=== PATIENT | female | born 1955 | race Caucasian/White ===

== ENCOUNTER 2018-11-04 04:28 | Emergency (ER) | payer BC ==
[~2018-11-04] VITALS: Ht 157.5 cm; Wt 58.2 kg
[2018-11-04 04:30] VITALS: Ht 157.5 cm; Wt 58.2 kg
[2018-11-04] MEDS ORDERED: METHYLPREDNISOLONE 125 MG INJ IV STA (06:31)
[2018-11-04] MEDS ORDERED: ALBUTEROL 0.5% (NEB) 2.5 MG/0.5 ML AMP INH STA (06:31)
[2018-11-04] MEDS ORDERED: morphine 4 MG/ML VIAL IV STA (06:31)
[2018-11-04] MEDS ORDERED: ONDANSETRON 4 MG INJ IV STA (06:31)
[2018-11-04] MEDS ORDERED: IPRATROPIUM (NEB) 0.5 MG/2.5 ML AMP INH STA (06:31)
[2018-11-04] MEDS ORDERED: CEFTRIAXONE 1 GM/50 ML (PMX) 50 ML IVPB STA (07:50)
[2018-11-04] MEDS ORDERED: AZITHROMYCIN 500MG/NS (PMX) 250 ML IV STA (07:50)
[2018-11-04] MEDS ORDERED: FLOV220 INHALATION (08:34)
[2018-11-04] MEDS ORDERED: LOSA1TAB28 ORAL (08:34)
[2018-11-04] MEDS ORDERED: METF-849 PO (08:34)
[2018-11-04] MEDS ORDERED: CARI350T PO (08:34)
[2018-11-04] MEDS ORDERED: GLYB5TAB3 ORAL (08:34)
[2018-11-04] MEDS ORDERED: ESTR2TAB PO (08:34)
[2018-11-04] MEDS ORDERED: LEVO25TA6 ORAL (08:34)
[2018-11-04] MEDS ORDERED: BECL10.62 IH (08:34)
[2018-11-04] MEDS ORDERED: HYDR-3609 ORAL (08:34)
[2018-11-04] MEDS ORDERED: SERT-165 ORAL (08:34)
[2018-11-04] MEDS ORDERED: DIPH25CA6 PO (08:34)
[2018-11-04] MEDS ORDERED: ATOR10TA65 ORAL (08:34)
[2018-11-04] MEDS ORDERED: ESOM20CA59 PO (08:34)
[2018-11-04] MEDS ORDERED: ACET325T33 PO (08:34)
--- NOTE | 2018-11-04 10:01 | ERD ---
ER Documentation Chief Complaint Chief Complaint CP WITH SOB; NO COUGH X2DAYS; NO CARDIAC HX HPI This is a 63-year-old female with a known history of asthma and lupus that presents to the emergency department complaining of generalized malaise she has, productive cough, chest pain and shortness of breath for the past 48 hours. The patient is utilize her inhaler with no improvement of her symptoms. She had a decrease in appetite. She states that the chest pain is worse with deep inspiration. The pain does not radiate to the back neck or jaw. She had associated symptoms with nausea and one episode of nonbloody nonbilious emesis. She denies any recent travel or prolonged immobilization. She has no swelling of her lower extremities. She is never been intubated in the past and no recent hospitalizations. ROS All systems reviewed and are negative except as per history of present illness. Medications Home Meds Reported Medications Estradiol* (Estradiol*) 2 Mg Tablet, 1 MG PO DAILY, TAB 11/04/18 Glyburide* (Glyburide*) 5 Mg Tablet, 1 TAB ORAL DAILY 11/04/18 Losartan-Hydrochlorothiazide (Losartan-HCTZ) 100-12.5 Mg Tab, 1 TAB ORAL DAILY 11/04/18 Sertraline Hcl* (Sertraline Hcl*) 100 Mg Tablet, 1 TAB ORAL QHS 11/04/18 Atorvastatin (Atorvastatin) 10 Mg Tablet, 1 TAB ORAL QHS 11/04/18 Levothyroxine Sodium* (Levothyroxine Sodium*) 25 Mcg Tablet, 1 TAB ORAL QAM 11/04/18 Metformin* (Glucophage*) 500 Mg Tab, 500 MG PO WITH BREAKFAST DINNE, #30 TAB 11/04/18 Hydrocodone/Acetaminophen (Hydrocodone-Acetamin 10-325 mg) 1 Each Tablet, 1 TAB ORAL Q6 PRN for PAIN LEVEL 1-5 11/04/18 Beclomethasone Dipropionate (Qvar Redihaler (80 MCG)) 10.6 Gm Hfa.aeroba, 1 PUFF IH BID, INH 11/04/18 Acetaminophen* (Tylenol*) 325 Mg Tablet, 325 MG PO Q4H PRN for PAIN AND OR ELEVATED TEMP, TAB 11/04/18 Carisoprodol* (Soma*) 350 Mg Tablet, 350 MG PO Q8H PRN for MUSCLE SPASMS, TAB 11/04/18 Diphenhydramine Hcl* (Diphenhydramine Hcl*) 25 Mg Capsule, 25 MG PO Q6 PRN for ITCHING, CAP 11/04/18 Esomeprazole Magnesium (Nexium 24Hr) 20 Mg Capsule.dr, 20 MG PO DAILY 11/04/18 Fluticasone Propionate* (Flovent* HFA 220) 12 Gm Inha, 1 PUFF INHALATION BID, #1 INHALER 11/04/18 Allergies Allergies: Coded Allergies: No Known Allergy (Unverified , 11/04/18) PMhx/Soc History of Surgery: Yes (CHOLECYSTECTOMY , HYSTERECTOMY, TONSILLECTOMY ,C SECTION ) Anesthesia Reaction: No Hx Neurological Disorder: No Hx Respiratory Disorders: Yes (asthma ) Hx Cardiac Disorders: No Hx Psychiatric Problems: No Hx Miscellaneous Medical Probl: Yes (lupus ) Hx Alcohol Use: No Hx Substance Use: No Hx Tobacco Use: No Smoking Status: Never smoker Physical Exam Vitals Vital Signs Date Temp Pulse Resp B/P (MAP) Pulse Ox O2 O2 Flow FiO2 Time Delivery Rate 11/04/18 104 18 111/54 96 Room Air 09:07 (73) 11/04/18 85 20 95 21 07:17 11/04/18 98.1 93 18 133/62 96 Room Air 06:28 (85) 11/04/18 97.5 105 22 119/61 95 04:30 (80) Physical Exam Constitutional:Well-developed. Well-nourished. Mild respiratory distress HEENT:Normocephalic. Atraumatic.Pupils were equal round reactive to light. Moist mucous membranes.No tonsillar exudates. Neck: No nuchal rigidity. No lymphadenopathy. No posterior cervical spine tenderness or step-offs. Respiratory: Not using accessory muscles of respiration. No rhonchi. No rales. Wheezing on end auscultation bilaterally Cardiovascular: Regular rate regular rhythm.No murmurs. No rubs were appreciated.S1, S2 normal. Distal pulses are palpable 2+ bilaterally. GI: Abdomen was soft. Nontender. Non Distended. No pulsatile abdominal masses or bruits. No rebound. No guarding. Bowel sounds were present and normal. Muscle skeletal: Full range of motion of both the upper and lower extremities bilaterally.Normal muscle tone.No assymetrical calf tenderness or swelling. Skin: No petechia, no purpura. No lesions on the palms or the soles of the feet. No maculopapular rash. NEURO: Patient was alert, awake, orientated x3.No facial droop. Gait observed and normal with no ataxia.Speech had regular rate and rhythm. No focal neurological deficits. Result Diagram: 11/04/18 0651 11/04/18 0651 Results 24 hrs Laboratory Tests Test 11/04/18 06:51 White Blood Count 11.9 10^3/ul Red Blood Count 4.32 10^6/ul Hemoglobin 12.7 g/dl Hematocrit 38.2 % Mean Corpuscular Volume 88.4 fl Mean Corpuscular Hemoglobin 29.4 pg Mean Corpuscular Hemoglobin Concent 33.2 g/dl Red Cell Distribution Width 12.8 % Platelet Count 170 10^3/UL Mean Platelet Volume 10.5 fl Immature Granulocytes % 4.400 % Neutrophils % % Segmented Neutrophils % (Manual) 73 % Band Neutrophils % (Manual) 19 % Lymphocytes % % Lymphocytes % (Manual) 4 % Monocytes % % Monocytes % (Manual) 4 % Eosinophils % % Basophils % % Nucleated Red Blood Cells % 0.0 /100WBC Immature Granulocytes # 0.520 10^3/ul Neutrophils # 10^3/ul Neutrophils # (Manual) 8.9 10^3/ul Band Neutrophils # 2.2 10^3/ul Lymphocytes (Manual) 0.4 10^3/ul Lymphocytes # 10^3/ul Monocytes # 10^3/ul Monocytes # (Manual) 0.4 10^3/ul Eosinophils # 10^3/ul Basophils # 10^3/ul Nucleated Red Blood Cells # 10^3/ul Platelet Estimate NORMAL Prothrombin Time 14.7 Sec Prothrombin Time Ratio 1.1 INR International Normalized Ratio 1.14 Activated Partial Thromboplast Time 36.3 Sec Sodium Level 135 mmol/L Potassium Level 4.6 mmol/L Chloride Level 99 mmol/L Carbon Dioxide Level 25 mmol/L Anion Gap 11 Blood Urea Nitrogen 20 mg/dl Creatinine 0.85 mg/dl Est Glomerular Filtrat Rate mL/min > 60 mL/min Glucose Level 298 mg/dl Calcium Level 9.4 mg/dl Total Bilirubin 1.5 mg/dl Direct Bilirubin 0.00 mg/dl Indirect Bilirubin 1.5 mg/dl Aspartate Amino Transf (AST/SGOT) 20 IU/L Alanine Aminotransferase (ALT/SGPT) 15 IU/L Alkaline Phosphatase 81 IU/L Creatine Kinase 63 IU/L Creatine Kinase Index 0.5 Creatinine Kinase MB (Mass) 0.32 ng/ml Troponin I < 0.012 ng/ml B-Type Natriuretic Peptide 136 PG/ML Total Protein 8.2 g/dl Albumin 4.3 g/dl Globulin 3.90 g/dl Albumin/Globulin Ratio 1.10 Current Medications Medications Dose Sig/Shaneka Start Time Status Last (Trade) Ordered Route PRN Stop Time Admin Dose Reason Admin Morphine 4 mg ONCE STAT 11/04/18 DC 11/04/18 Sulfate IV 06:31 06:58 (morphine) 11/04/18 06:34 Ondansetron 4 mg ONCE STAT 11/04/18 DC 11/04/18 HCl (Zofran IV 06:31 06:57 Inj) 11/04/18 06:34 Albuterol 10 mg ONCE STAT 11/04/18 DC 11/04/18 (Proventil INH 06:31 07:16 0.5% (Neb)) 11/04/18 06:34 Ipratropium 1 mg ONCE STAT 11/04/18 DC 11/04/18 [place] INH 06:31 07:16 (Atrovent 11/04/18 06:34 0.02% (Neb)) 125 mg ONCE STAT 11/04/18 DC 11/04/18 Methylprednis IV 06:31 06:58 olone Sodium 11/04/18 06:34 Succinate (Solu-Medrol) Azithromycin 250 ml @ ONCE STAT 11/04/18 DC 11/04/18 250 mls/hr IV 07:50 09:36 11/04/18 08:49 Ceftriaxone 50 ml @ ONCE STAT 11/04/18 DC 11/04/18 Sodium 100 mls/hr IVPB 07:50 09:03 11/04/18 08:49 Procedures/MDM The patient presented to the emergency department with shortness of breath. My differential diagnosis included but was not limited to upper airway obstruction, CHF, pulmonary embolism, cardiac ischemia, pneumonia, pneumothorax, anemia, drug overdose, pulmonary edema, COPD or asthma. The patient has a history of asthma and did have wheezing on end auscultation. There is diminished breath sounds in the left lower lung base. Therefore do feel is necessary to obtain a chest radiograph which was reviewed by the radiologist myself and indicate the following: There is a small left pleural effusion with patchy left basilar atelectasis or infiltrate. Given her symptoms I did feel it was necessary to obtain a d-dimer to rule out for pulmonary embolism given that the patient was a low pretest probability according to the Wells criteria. Departure Condition: CHRIS Craig MD Nov 04, 2018 10:01
[2018-11-04] MEDS ORDERED: SOD CHLORIDE 0.9% 100 ML ONE (10:55)
[2018-11-04] MEDS ORDERED: IOHEXOL 100 ML ONE (10:55)
[2018-11-04] MEDS ORDERED: ALBU8.5H8 INH (12:48)
[2018-11-04] MEDS ORDERED: AZIT250T PO (12:48)
[2018-11-04] MEDS ORDERED: PRED20TA PO (12:48)
[2018-11-04 12:55] VITALS: BP 118/59; PULSE 88; RESP 18
== END 2018-11-04 13:34 | disposition home or self-care (01) ==
LOC: E/R 04:28
DX: J45.901 Unspecified asthma with (acute) exacerbation (principal); Z79.84 Long term (current) use of oral hypoglycemic drugs
CPT/HCPCS: 36415; 71045; 71275; 80053; 82550; 82553; 83880; 84484; 85025; 85378; 85610; 85730; 87040; 93005; 94644; 96365; 96367; 96375; 99285; J0456; J0696; J2270; J2405; J2930; Q9967

== ENCOUNTER 2018-11-11 16:26 | Inpatient (IN) | payer BC ==
[~2018-11-11] VITALS: Ht 157.5 cm; Wt 55.3 kg
--- NOTE | 2018-11-11 15:39 | HP ---
DATE OF ADMISSION: 11/04/2018 IDENTIFYING DATA: The patient is a 63-year-old female being admitted to the hospital with a persiste nt left lower lobe infiltrate and accompanying pleural effusion. HISTORICAL EVENTS: The patient was evaluated at [facility] on 11/04/2018 when she presented with a 2-day history of cough and chest congestion. At that time, a chest x-ray revealed a left low er lobe infiltrate and a CT pulmonary angiogram revealed no evidence of a PE but confirmed the left l ower lobe consolidation with concern that there may be an endobronchial lesion and cavity. She was g iven IV Rocephin along with a Medrol Dosepak and Zithromax (5-day course) that was completed yesterda y. While in the ER, her white count was 11,900. Liver tests were normal. She was evaluated yesterd ay and still had a low grade temperature of 99.4, had mild shortness of breath, intermittent wheezing , albeit she felt somewhat better. Cough had lessened. She did note some mild discomfort involving the left posterior chest that was not particularly pleuritic, but seemed to worsen a bit when she wal ked. She denied any night sweats. There was no recent travel outside the [place]. She denied nausea, vo miting, abdominal pain or diarrhea. Denied pathologic symptoms and did note for the last 2 days a rash involving the maxillary area and the bridge of her nose. PAST MEDICAL HISTORY: Includes: 1. Asthma. 2. Diabetes. 3. History of fibromyalgia. 4. History of Irma's thyroiditis. 5. Partial hysterectomy and cholecystectomy. 6. Hypertension. 7. Hyperlipidemia. 8. History of lupus, having been followed at [facility] by Dr. Spangler without any recent followup at least since 2016. SOCIAL HISTORY: , does not smoke. She works in a warehouse. Does not drink alcohol. MEDICATIONS: 1. Xanax 0.5 b.i.d. p.r.n. 2. Flovent 2 puffs twice a day. 3. DiaBeta, 1 tablet before meals. 4. [place] 10/325 q.6h. p.r.n. 5. Estrace 1 mg per day. 6. Atorvastatin 10 mg per day. 7. Hyzaar 100/12.5 per day. 8. Nexium 40 mg per day. 9. Gabapentin 300 mg t.i.d. 10. Metformin 500 mg b.i.d. 11. Zoloft 100 mg per day. 12. Aspirin 81 daily. PHYSICAL EXAMINATION: GENERAL: A thin female in no acute distress. VITAL SIGNS: BP 122/76, pulse 90, respirations were 18, temperature 99.1. EYES: Extraocular muscles were full. NOSE, MOUTH, AND THROAT: Normal. NECK: Supple without jugular venous distention, thyroid enlargement or adenopathy. LUNGS: Marked reduced breath sounds left base without rales or wheezes; right base revealed a few rh onchi. HEART: Rhythm regular, no murmur. No third or fourth sound. ABDOMEN: Nontender. Liver and spleen were not palpable. No mass or tenderness was noted. EXTREMITIES: No edema, no calf tenderness. Skin revealed an erythematous eruption circular involvin g the bridge of the nose and maxillary area. IMPRESSION: 1. Persistent infiltrate and now effusion concerned about an opportunistic infection. ID and pulmon tamara to see. Will need thoracentesis. 2. Rash, possibly related to Zithromax. May have derm evaluation, doubt lupus related. PLAN: Admit. Thoracentesis. Pulmonary and ID to see. Titration of blood sugars with short-acting insulin. Dictated By: YADI RUTLEDGE/WARD Conf#: [id number] DID#: [id number]
[~2018-11-11 16:26] MED LIST: ACET325T33 PO; ALBU8.5H8 INH; ATOR10TA65 ORAL; AZIT250T PO; BECL10.62 IH; CARI350T PO; DIPH25CA6 PO; ESOM20CA59 PO; ESTR2TAB PO; FLOV220 INHALATION; GLYB5TAB3 ORAL; HYDR-3609 ORAL; LEVO25TA6 ORAL; LOSA1TAB28 ORAL; METF-849 PO; PRED20TA PO; SERT-165 ORAL
[2018-11-11 17:30] VITALS: Ht 157.5 cm; Wt 55.3 kg
[2018-11-11] MEDS ORDERED: ACETAMINOPHEN 325 MG TAB PO PRN (17:30)
[2018-11-11] MEDS: LOSARTAN 50 MG TAB PO SCH ×2 (17:30→18:51)
[2018-11-11] MEDS ORDERED: ZOLPIDEM 5 MG TAB PO PRN (17:30)
[2018-11-11] MEDS ORDERED: NACL 0.9% 3 ML SYG IV SCH (17:30)
[2018-11-11] MEDS ORDERED: INSULIN ASPART [NOVOLOG] 3 ML PEN SC SCH (17:35)
[2018-11-11] MEDS ORDERED: DEXTROSE 50% 50 ML SYRINGE IV PRN ×2 (18:30)
[2018-11-11] MEDS ORDERED: GLUCAGON 1 MG INJ IM PRN (18:30)
[2018-11-11] MEDS ORDERED: GLUCOSE GEL 15 GRAM TUBE BUCCAL PRN (18:30)
[2018-11-11] MEDS ORDERED: GLUCOSE GEL 15 GRAM TUBE PO PRN ×2 (18:30)
[2018-11-11] MEDS: SOD CHLORIDE 0.9% 1,000 ML IV SCH (18:48)
[2018-11-11] MEDS: metFORMIN 500 MG TAB PO SCH (19:16)
[2018-11-11] MEDS: ALBUTEROL/IPRATROPIUM (NEB) 3 ML AMP HHN SCH (19:49)
[2018-11-11 20:00] VITALS: BP 130/60; PULSE 82; RESP 18
[2018-11-11] MEDS ORDERED: INSULIN GLARGINE [LANTus] (100 UNITS/ML) SYG SC SCH (20:00)
[2018-11-11] MEDS: GABAPENTIN 300 MG CAP PO SCH (20:43)
[2018-11-11] MEDS: ATORVASTATIN 10 MG TAB PO SCH (20:43)
[2018-11-11] MEDS: GUAIFENESIN/DM (SR) TAB PO SCH (20:43)
[2018-11-11] MEDS: DIPHENHYDRAMINE 25 MG CAP PO PRN (20:43)
[2018-11-12 02:00] VITALS: BP 120/58; PULSE 87; RESP 17
[2018-11-12] MEDS: PANTOPRAZOLE (EC) 40 MG TAB PO SCH (05:44)
[2018-11-12] MEDS: ALBUTEROL/IPRATROPIUM (NEB) 3 ML AMP HHN SCH ×3 (07:36→21:42)
--- NOTE | 2018-11-12 08:18 | PN ---
Date/Time of Note Date/Time of Note DATE: 11/12/18 TIME: 08:15 Assessment/Plan VTE Prophylaxis Risk score (from Ns)>0 risk: 5 SCD applied (from Ns): Yes Pharmacological prophylaxis: LMWH Lines/Catheters IV Catheter Type (from Nrsg): Peripheral IV Assessment/Plan Assessment/Plan 1. LLL infiltrate, abx noted per ID, chest us noted, ? thoracentesis needed 2. Sl diff swallowing, ? yeast 3. DM, sugar control not optimal, insulin inc 4. Hx SLE, quiescent,serology is pending 5. Rash has resolved Result Diagram: 11/12/18 0534 11/12/18 0534 Results 24hrs Laboratory Tests Test 11/11/18 17:56 11/11/18 18:59 11/11/18 20:42 11/12/18 04:20 White Blood Count 17.0 #H Red Blood Count 4.32 Hemoglobin 12.4 Hematocrit 37.8 Mean Corpuscular 87.5 Volume Mean Corpuscular 28.7 L Hemoglobin Mean Corpuscular 32.8 Hemoglobin Concen t Red Cell 14.2 Distribution Width Platelet Count 337 # Mean Platelet 9.8 Volume Immature 4.100 H Granulocytes % Neutrophils % 79.7 H Lymphocytes % 12.3 L Monocytes % 2.8 Eosinophils % 0.7 Basophils % 0.4 Nucleated Red 0.0 Blood Cells % Immature 0.690 H Granulocytes # Neutrophils # 13.5 H Lymphocytes # 2.1 Monocytes # 0.5 Eosinophils # 0.1 Basophils # 0.1 Nucleated Red 0.0 Blood Cells # Erythrocyte 80 H Sedimentation Rate Prothrombin Time 15.5 H Prothrombin Time 1.2 Ratio INR International 1.22 Normalized Ratio Activated 29.0 Partial Thrombopl ast Time Sodium Level 135 Potassium Level 4.1 Chloride Level 102 Carbon Dioxide 22 Level Anion Gap 11 Blood Urea 24 H Nitrogen Creatinine 0.56 Est Glomerular > 60 Filtrat Rate mL/min Glucose Level 318 H Calcium Level 8.9 Phosphorus Level 3.8 Magnesium Level 2.0 Total Bilirubin 0.8 Direct Bilirubin 0.00 Indirect 0.8 Bilirubin Aspartate Amino 26 Transf (AST/SGOT) Alanine 47 Aminotransferase (ALT/SGPT) Alkaline 89 Phosphatase C-Reactive 15.9 H Protein Total Protein 7.7 Albumin 3.6 Globulin 4.10 H Albumin/Globulin 0.87 Ratio Bedside Glucose 286 H 285 H Urine Color SERA Urine Clarity SLIGHTLY CLOUDY A Urine pH 5.0 Urine Specific 1.035 H [place] Urine Ketones TRACE A Urine Nitrite NEGATIVE Urine Bilirubin NEGATIVE Urine NEGATIVE Urobilinogen Urine Leukocyte TRACE A Esterase Urine Microscopic 8 H RBC Urine Microscopic 18 H WBC Urine Squamous FEW Epithelial Cells Urine Bacteria FEW A Urine Mucus MODERATE Urine Hemoglobin NEGATIVE Urine Glucose 3+ H Urine Total 1+ H Protein Test 11/12/18 05:34 White Blood Count 15.1 H Red Blood Count 4.16 L Hemoglobin 12.1 Hematocrit 36.4 L Mean Corpuscular 87.5 Volume Mean Corpuscular 29.1 Hemoglobin Mean Corpuscular 33.2 Hemoglobin Concen t Red Cell 14.2 Distribution Width Platelet Count 354 Mean Platelet 10.3 Volume Immature 4.300 H Granulocytes % Neutrophils % 76.6 Lymphocytes % 13.7 L Monocytes % 3.6 Eosinophils % 1.3 Basophils % 0.5 Nucleated Red 0.0 Blood Cells % Immature 0.650 H Granulocytes # Neutrophils # 11.6 H Lymphocytes # 2.1 Monocytes # 0.6 Eosinophils # 0.2 Basophils # 0.1 Nucleated Red 0.0 Blood Cells # Sodium Level 137 Potassium Level 4.2 Chloride Level 105 Carbon Dioxide 21 Level Anion Gap 11 Blood Urea 25 H Nitrogen Creatinine 0.56 Est Glomerular > 60 Filtrat Rate mL/min Glucose Level 230 H Hemoglobin A1c 8.3 H Calcium Level 8.5 Phosphorus Level 3.6 Magnesium Level 2.0 Total Bilirubin 0.9 Direct Bilirubin 0.00 Indirect 0.9 Bilirubin Aspartate Amino 24 Transf (AST/SGOT) Alanine 39 Aminotransferase (ALT/SGPT) Alkaline 78 Phosphatase Total Protein 7.2 Albumin 3.3 Globulin 3.90 H Albumin/Globulin 0.84 Ratio Thyroid 1.400 Stimulating Hormone (TSH) Free Thyroxine Pending Index Thyroxine (T4) Pending Triiodothyronine 46.9 H (T3) Uptake Subjective 24 Hr Interval Summary Respiratory: cough (that is not productive without wheezing) Cardiovascular: No chest pain Gastrointestinal: no complaints Genitourinary: no complaints Musculoskeletal: no complaints Neurologic: No headache Exam/Review of Systems Exam Vitals Vital Signs Date Temp Pulse Resp B/P (MAP) Pulse Ox O2 O2 Flow FiO2 Time Delivery Rate 11/12/18 84 18 94 21 07:37 11/12/18 98.7 120/58 02:00 (78) Intake and Output 11/11/18 11/11/18 11/12/18 1515:00 23:00 07:00 IntakeIntake Total 740 ml BalanceBalance 740 ml Neck: No jvd Respiratory: other (red bs left lung and few rhonchi right base) Cardiovascular: regular rate and rhythm Gastrointestinal: soft Extremities: No edema Results Results 24hrs Laboratory Tests Test 11/11/18 17:56 11/11/18 18:59 11/11/18 20:42 11/12/18 04:20 White Blood Count 17.0 #H Red Blood Count 4.32 Hemoglobin 12.4 Hematocrit 37.8 Mean Corpuscular 87.5 Volume Mean Corpuscular 28.7 L Hemoglobin Mean Corpuscular 32.8 Hemoglobin Concen t Red Cell 14.2 Distribution Width Platelet Count 337 # Mean Platelet 9.8 Volume Immature 4.100 H Granulocytes % Neutrophils % 79.7 H Lymphocytes % 12.3 L Monocytes % 2.8 Eosinophils % 0.7 Basophils % 0.4 Nucleated Red 0.0 Blood Cells % Immature 0.690 H Granulocytes # Neutrophils # 13.5 H Lymphocytes # 2.1 Monocytes # 0.5 Eosinophils # 0.1 Basophils # 0.1 Nucleated Red 0.0 Blood Cells # Erythrocyte 80 H Sedimentation Rate Prothrombin Time 15.5 H Prothrombin Time 1.2 Ratio INR International 1.22 Normalized Ratio Activated 29.0 Partial Thrombopl ast Time Sodium Level 135 Potassium Level 4.1 Chloride Level 102 Carbon Dioxide 22 Level Anion Gap 11 Blood Urea 24 H Nitrogen Creatinine 0.56 Est Glomerular > 60 Filtrat Rate mL/min Glucose Level 318 H Calcium Level 8.9 Phosphorus Level 3.8 Magnesium Level 2.0 Total Bilirubin 0.8 Direct Bilirubin 0.00 Indirect 0.8 Bilirubin Aspartate Amino 26 Transf (AST/SGOT) Alanine 47 Aminotransferase (ALT/SGPT) Alkaline 89 Phosphatase C-Reactive 15.9 H Protein Total Protein 7.7 Albumin 3.6 Globulin 4.10 H Albumin/Globulin 0.87 Ratio Bedside Glucose 286 H 285 H Urine Color SERA Urine Clarity SLIGHTLY CLOUDY A Urine pH 5.0 Urine Specific 1.035 H [place] Urine Ketones TRACE A Urine Nitrite NEGATIVE Urine Bilirubin NEGATIVE Urine NEGATIVE Urobilinogen Urine Leukocyte TRACE A Esterase Urine Microscopic 8 H RBC Urine Microscopic 18 H WBC Urine Squamous FEW Epithelial Cells Urine Bacteria FEW A Urine Mucus MODERATE Urine Hemoglobin NEGATIVE Urine Glucose 3+ H Urine Total 1+ H Protein Test 11/12/18 05:34 White Blood Count 15.1 H Red Blood Count 4.16 L Hemoglobin 12.1 Hematocrit 36.4 L Mean Corpuscular 87.5 Volume Mean Corpuscular 29.1 Hemoglobin Mean Corpuscular 33.2 Hemoglobin Concen t Red Cell 14.2 Distribution Width Platelet Count 354 Mean Platelet 10.3 Volume Immature 4.300 H Granulocytes % Neutrophils % 76.6 Lymphocytes % 13.7 L Monocytes % 3.6 Eosinophils % 1.3 Basophils % 0.5 Nucleated Red 0.0 Blood Cells % Immature 0.650 H Granulocytes # Neutrophils # 11.6 H Lymphocytes # 2.1 Monocytes # 0.6 Eosinophils # 0.2 Basophils # 0.1 Nucleated Red 0.0 Blood Cells # Sodium Level 137 Potassium Level 4.2 Chloride Level 105 Carbon Dioxide 21 Level Anion Gap 11 Blood Urea 25 H Nitrogen Creatinine 0.56 Est Glomerular > 60 Filtrat Rate mL/min Glucose Level 230 H Hemoglobin A1c 8.3 H Calcium Level 8.5 Phosphorus Level 3.6 Magnesium Level 2.0 Total Bilirubin 0.9 Direct Bilirubin 0.00 Indirect 0.9 Bilirubin Aspartate Amino 24 Transf (AST/SGOT) Alanine 39 Aminotransferase (ALT/SGPT) Alkaline 78 Phosphatase Total Protein 7.2 Albumin 3.3 Globulin 3.90 H Albumin/Globulin 0.84 Ratio Thyroid 1.400 Stimulating Hormone (TSH) Free Thyroxine Pending Index Thyroxine (T4) Pending Triiodothyronine 46.9 H (T3) Uptake Medications Medication Current Medications Sodium Chloride 1,000 ml @ 50 mls/hr Q20H IV Last administered on 11/11/18at 18:48; Admin Dose 50 MLS/HR; Start 11/11/18 at 17:05 IV Flush (NS 3 ml) 3 ml PER PROTOCOL IV ; Start 11/11/18 at 17:30 Ondansetron HCl (Zofran Inj) 4 mg Q6H PRN IV NAUSEA/VOMITING; Start 11/11/18 at 17:30 Acetaminophen (Tylenol Tab) 650 mg Q6H PRN PO .PAIN 1-3 OR TEMP; Start 11/11/18 at 17:30 Acetaminophen/ Hydrocodone Bitart ([place] (5/325)) 1 tab Q6H PRN PO .MOD PAIN 4- 6; Start 11/11/18 at 17:30 Zolpidem Tartrate (Ambien) 5 mg QHS PRN PO .INSOMNIA; Start 11/11/18 at 17:30 Pantoprazole (Protonix Tab) 40 mg DAILY@06 PO Last administered on 11/12/18at 05:44; Admin Dose 40 MG; Start 11/12/18 at 06:00 Albuterol/ Ipratropium (Duoneb) 3 ml Q6HWA RESP THERAPY HHN Last administered on 11/12/18at 07:36; Admin Dose 3 ML; Start 11/11/18 at 20:00 Guaifenesin/ Dextromethorphan (Mucinex Dm) 1 tab BID PO Last administered on 11/11/18at 20:43; Admin Dose 1 TAB; Start 11/11/18 at 21:00 Estradiol (Estrace) 1 mg DAILY PO ; Start 11/12/18 at 09:00 Atorvastatin Calcium (Lipitor) 10 mg HS PO Last administered on 11/11/18at 20:43; Admin Dose 10 MG; Start 11/11/18 at 21:00 Gabapentin (Neurontin) 300 mg BID PO Last administered on 11/11/18at 20:43; Admin Dose 300 MG; Start 11/11/18 at 21:00 Metformin HCl (Glucophage) 500 mg BID WITH MEALS PO Last administered on 11/11/18at 19:16; Admin Dose 500 MG; Start 11/11/18 at 18:05 Sertraline HCl (Zoloft) 100 mg DAILY PO ; Start 11/12/18 at 09:00 Losartan Potassium (Cozaar) 100 mg DAILY PO ; Start 11/11/18 at 17:30 Insulin Aspart (Novolog Insulin Pen) NOVOLOG *MILD* ALGORITHM AC MEALS SC Last administered on 11/11/18at 19:17; Admin Dose 4 UNIT; Start 11/11/18 at 17:35 Miscellaneous Information 1 ea NOTE XX ; Start 11/11/18 at 18:30 Glucose (Glutose) 15 gm Q15M PRN PO DECREASED GLUCOSE; Start 11/11/18 at 18:30 Glucose (Glutose) 22.5 gm Q15M PRN PO DECREASED GLUCOSE; Start 11/11/18 at 18:30 Dextrose (D50w Syringe) 25 ml Q15M PRN IV DECREASED GLUCOSE; Start 11/11/18 at 18:30 Dextrose (D50w Syringe) 50 ml Q15M PRN IV DECREASED GLUCOSE; Start 11/11/18 at 18:30 Glucagon (Glucagen) 1 mg Q15M PRN IM DECREASED GLUCOSE; Start 11/11/18 at 18:30 Glucose (Glutose) 15 gm Q15M PRN BUCCAL DECREASED GLUCOSE; Start 11/11/18 at 18:30 Insulin Glargine (Lantus) 10 units DAILY@2000 SC Last administered on 11/11/18at 20:44; Admin Dose 10 UNITS; Start 11/11/18 at 20:00 Diphenhydramine HCl (Benadryl) 25 mg TID PRN PO ITCHING Last administered on 11/11/18at 20:43; Admin Dose 25 MG; Start 11/11/18 at 20:00 Piperacillin Sod/ Tazobactam Sod 100 ml @ 200 mls/hr Q6 IVPB ; Start 11/12/18 at 12:00; Status UNV Vancomycin HCl (Vanco Iv Per Pharmacy) VANCOMYCIN PER PHARMACY PER PROTOCOL XX ; Start 11/12/18 at 08:30; Status UNV YADI MACHADO MD Nov 12, 2018 08:18
--- NOTE | 2018-11-12 08:23 | CONS ---
Assessment/Plan Assessment/Plan Hospital Course (Demo Recall) 1) pneumonia with complex L pleural effusion start vanco/zosyn pt will need thorancentesis and possible VATS with decortication check procalcitonin sputum cx if possible nasal swab for MRSA 2) SLE not currently active only on neurontin 3) DM Consultation Date/Type/Reason Admit Date/Time Nov 11, 2018 at 16:26 Date of Consultation: Nov 12, 2018 Type of Consult ID Date/Time of Note DATE: 11/12/18 TIME: 08:13 Hx of Present Illness pt was seen last week in ER and diagnosed with pneumonia with possible cavitation and possible mucus plug to LLL she was given zithromax which did not have a great impact on her symptoms she has had chills but no fever she has some L sided CP no N, V she one loose stool yesterday she had an itchy rash to arms and face for which benadryl helped no joint problems no dysuria but has some itchiness when she urinates no abd pain no sick contacts or recent travel Past Medical History asthma, SLE, fibromyalgia, bryan's thyroiditis, HTN, hyperlipidemia, DM Home Meds Active Scripts Prednisone* (Prednisone*) 20 Mg Tab, 60 MG PO DAILY for 5 Days, TAB Prov:CHRIS OVERTON MD 11/04/18 Albuterol Sulfate* (Proair HFA*) 8.5 Gm Hfa.aer.ad, 2 PUFF INH Q6H PRN for WHEEZING AND SOB, #1 INHALER Prov:CHRIS OVERTON MD 11/04/18 Azithromycin* (Zithromax*) 250 Mg Tablet, 250 MG PO .TjPACK DIRECTED, #6 TAB TAKE 500 MG (2 TABS) THE FIRST DAY THEN 250 MG (1 TAB) DAYS 2-5 Prov:CHRIS OVERTON MD 11/04/18 Reported Medications Estradiol* (Estradiol*) 2 Mg Tablet, 1 MG PO DAILY, TAB 11/04/18 Glyburide* (Glyburide*) 5 Mg Tablet, 1 TAB ORAL DAILY 11/04/18 Losartan-Hydrochlorothiazide (Losartan-HCTZ) 100-12.5 Mg Tab, 1 TAB ORAL DAILY 11/04/18 Sertraline Hcl* (Sertraline Hcl*) 100 Mg Tablet, 1 TAB ORAL QHS 11/04/18 Atorvastatin (Atorvastatin) 10 Mg Tablet, 1 TAB ORAL QHS 11/04/18 Levothyroxine Sodium* (Levothyroxine Sodium*) 25 Mcg Tablet, 1 TAB ORAL QAM 11/04/18 Metformin* (Glucophage*) 500 Mg Tab, 500 MG PO WITH BREAKFAST DINNE, #30 TAB 11/04/18 Hydrocodone/Acetaminophen (Hydrocodone-Acetamin 10-325 mg) 1 Each Tablet, 1 TAB ORAL Q6 PRN for PAIN LEVEL 1-5 11/04/18 Beclomethasone Dipropionate (Qvar Redihaler (80 MCG)) 10.6 Gm Hfa.aeroba, 1 PUFF IH BID, INH 11/04/18 Acetaminophen* (Tylenol*) 325 Mg Tablet, 325 MG PO Q4H PRN for PAIN AND OR ELEVATED TEMP, TAB 11/04/18 Carisoprodol* (Soma*) 350 Mg Tablet, 350 MG PO Q8H PRN for MUSCLE SPASMS, TAB 11/04/18 Diphenhydramine Hcl* (Diphenhydramine Hcl*) 25 Mg Capsule, 25 MG PO Q6 PRN for ITCHING, CAP 11/04/18 Esomeprazole Magnesium (Nexium 24Hr) 20 Mg Capsule.dr, 20 MG PO DAILY 11/04/18 Fluticasone Propionate* (Flovent* HFA 220) 12 Gm Inha, 1 PUFF INHALATION BID, #1 INHALER 11/04/18 Medications Current Medications Sodium Chloride 1,000 ml @ 50 mls/hr Q20H IV Last administered on 11/11/18at 18:48; Admin Dose 50 MLS/HR; Start 11/11/18 at 17:05 IV Flush (NS 3 ml) 3 ml PER PROTOCOL IV ; Start 11/11/18 at 17:30 Ondansetron HCl (Zofran Inj) 4 mg Q6H PRN IV NAUSEA/VOMITING; Start 11/11/18 at 17:30 Acetaminophen (Tylenol Tab) 650 mg Q6H PRN PO .PAIN 1-3 OR TEMP; Start 11/11/18 at 17:30 Acetaminophen/ Hydrocodone Bitart ([place] (5/325)) 1 tab Q6H PRN PO .MOD PAIN 4- 6; Start 11/11/18 at 17:30 Zolpidem Tartrate (Ambien) 5 mg QHS PRN PO .INSOMNIA; Start 11/11/18 at 17:30 Pantoprazole (Protonix Tab) 40 mg DAILY@06 PO Last administered on 11/12/18at 05 :44; Admin Dose 40 MG; Start 11/12/18 at 06:00 Albuterol/ Ipratropium (Duoneb) 3 ml Q6HWA RESP THERAPY HHN Last administered on 11/12/18at 07:36; Admin Dose 3 ML; Start 11/11/18 at 20:00 Guaifenesin/ Dextromethorphan (Mucinex Dm) 1 tab BID PO Last administered on 11/11/18at 20:43; Admin Dose 1 TAB; Start 11/11/18 at 21:00 Estradiol (Estrace) 1 mg DAILY PO ; Start 11/12/18 at 09:00 Atorvastatin Calcium (Lipitor) 10 mg HS PO Last administered on 11/11/18at 20:43; Admin Dose 10 MG; Start 11/11/18 at 21:00 Gabapentin (Neurontin) 300 mg BID PO Last administered on 11/11/18at 20:43; Admin Dose 300 MG; Start 11/11/18 at 21:00 Metformin HCl (Glucophage) 500 mg BID WITH MEALS PO Last administered on 11/11/18at 19:16; Admin Dose 500 MG; Start 11/11/18 at 18:05 Sertraline HCl (Zoloft) 100 mg DAILY PO ; Start 11/12/18 at 09:00 Losartan Potassium (Cozaar) 100 mg DAILY PO ; Start 11/11/18 at 17:30 Miscellaneous Information 1 ea NOTE XX ; Start 11/11/18 at 18:30 Glucose (Glutose) 15 gm Q15M PRN PO DECREASED GLUCOSE; Start 11/11/18 at 18:30 Glucose (Glutose) 22.5 gm Q15M PRN PO DECREASED GLUCOSE; Start 11/11/18 at 18:30 Dextrose (D50w Syringe) 25 ml Q15M PRN IV DECREASED GLUCOSE; Start 11/11/18 at 18:30 Dextrose (D50w Syringe) 50 ml Q15M PRN IV DECREASED GLUCOSE; Start 11/11/18 at 18:30 Glucagon (Glucagen) 1 mg Q15M PRN IM DECREASED GLUCOSE; Start 11/11/18 at 18:30 Glucose (Glutose) 15 gm Q15M PRN BUCCAL DECREASED GLUCOSE; Start 11/11/18 at 18:30 Insulin Glargine (Lantus) 10 units DAILY@2000 SC Last administered on 11/11/18at 20:44; Admin Dose 10 UNITS; Start 11/11/18 at 20:00 Diphenhydramine HCl (Benadryl) 25 mg TID PRN PO ITCHING Last administered on 11/11/18at 20:43; Admin Dose 25 MG; Start 11/11/18 at 20:00 Piperacillin Sod/ Tazobactam Sod 100 ml @ 200 mls/hr Q6 IVPB ; Start 11/12/18 at 12:00; Status UNV Vancomycin HCl (Vanco Iv Per Pharmacy) VANCOMYCIN PER PHARMACY PER PROTOCOL XX ; Start 11/12/18 at 08:30; Status UNV Diagnostic Test (Pha) (Accu-Chek) 1 ea 02 XX ; Start 11/13/18 at 02:00; Status UNV Insulin Aspart (Novolog Insulin Pen) NOVOLOG *MODERATE* ALGORITHM WITH MEALS BEDTIME SC ; Start 11/12/18 at 12:00; Status UNV Miscellaneous Information (* Miscellaneous Pharmacy Order) Discontinue all previ... ONCE ONCE XX ; Start 11/12/18 at 08:30; Stop 11/12/18 at 08:31; Status UNV Allergies: Coded Allergies: No Known Allergy (Unverified , 11/04/18) Past Surgical History partial hysterectomy, cholecystectomy Social History Smoking Status: Never smoker Exam/Review of Systems Exam Vitals Vital Signs Date Temp Pulse Resp B/P (MAP) Pulse Ox O2 O2 Flow FiO2 Time Delivery Rate 11/12/18 84 18 94 21 07:37 11/12/18 98.7 120/58 02:00 (78) Intake and Output 11/11/18 11/11/18 11/12/18 1515:00 23:00 07:00 IntakeIntake Total 740 ml BalanceBalance 740 ml Constitutional: alert, oriented Eyes: nl sclera ENMT: mucosa pink and moist Respiratory: other (decreased BS at L base) Cardiovascular: regular rate and rhythm Gastrointestinal: soft, non-tender Extremities: other (no edema) Neurological: other (moves all extremities) Skin: other (on distal arms are some raised skin (welts), some red spottiness on cheeks) Results Result Diagram: 11/12/18 0534 11/12/18 0534 Results 24hrs Laboratory Tests Test 11/11/18 17:56 11/11/18 18:59 11/11/18 20:42 11/12/18 04:20 White Blood Count 17.0 #H Red Blood Count 4.32 Hemoglobin 12.4 Hematocrit 37.8 Mean Corpuscular 87.5 Volume Mean Corpuscular 28.7 L Hemoglobin Mean Corpuscular 32.8 Hemoglobin Concen t Red Cell 14.2 Distribution Width Platelet Count 337 # Mean Platelet 9.8 Volume Immature 4.100 H Granulocytes % Neutrophils % 79.7 H Lymphocytes % 12.3 L Monocytes % 2.8 Eosinophils % 0.7 Basophils % 0.4 Nucleated Red 0.0 Blood Cells % Immature 0.690 H Granulocytes # Neutrophils # 13.5 H Lymphocytes # 2.1 Monocytes # 0.5 Eosinophils # 0.1 Basophils # 0.1 Nucleated Red 0.0 Blood Cells # Erythrocyte 80 H Sedimentation Rate Prothrombin Time 15.5 H Prothrombin Time 1.2 Ratio INR International 1.22 Normalized Ratio Activated 29.0 Partial Thrombopl ast Time Sodium Level 135 Potassium Level 4.1 Chloride Level 102 Carbon Dioxide 22 Level Anion Gap 11 Blood Urea 24 H Nitrogen Creatinine 0.56 Est Glomerular > 60 Filtrat Rate mL/min Glucose Level 318 H Calcium Level 8.9 Phosphorus Level 3.8 Magnesium Level 2.0 Total Bilirubin 0.8 Direct Bilirubin 0.00 Indirect 0.8 Bilirubin Aspartate Amino 26 Transf (AST/SGOT) Alanine 47 Aminotransferase (ALT/SGPT) Alkaline 89 Phosphatase C-Reactive 15.9 H Protein Total Protein 7.7 Albumin 3.6 Globulin 4.10 H Albumin/Globulin 0.87 Ratio Bedside Glucose 286 H 285 H Urine Color SERA Urine Clarity SLIGHTLY CLOUDY A Urine pH 5.0 Urine Specific 1.035 H [place] Urine Ketones TRACE A Urine Nitrite NEGATIVE Urine Bilirubin NEGATIVE Urine NEGATIVE Urobilinogen Urine Leukocyte TRACE A Esterase Urine Microscopic 8 H RBC Urine Microscopic 18 H WBC Urine Squamous FEW Epithelial Cells Urine Bacteria FEW A Urine Mucus MODERATE Urine Hemoglobin NEGATIVE Urine Glucose 3+ H Urine Total 1+ H Protein Test 11/12/18 05:34 White Blood Count 15.1 H Red Blood Count 4.16 L Hemoglobin 12.1 Hematocrit 36.4 L Mean Corpuscular 87.5 Volume Mean Corpuscular 29.1 Hemoglobin Mean Corpuscular 33.2 Hemoglobin Concen t Red Cell 14.2 Distribution Width Platelet Count 354 Mean Platelet 10.3 Volume Immature 4.300 H Granulocytes % Neutrophils % 76.6 Lymphocytes % 13.7 L Monocytes % 3.6 Eosinophils % 1.3 Basophils % 0.5 Nucleated Red 0.0 Blood Cells % Immature 0.650 H Granulocytes # Neutrophils # 11.6 H Lymphocytes # 2.1 Monocytes # 0.6 Eosinophils # 0.2 Basophils # 0.1 Nucleated Red 0.0 Blood Cells # Sodium Level 137 Potassium Level 4.2 Chloride Level 105 Carbon Dioxide 21 Level Anion Gap 11 Blood Urea 25 H Nitrogen Creatinine 0.56 Est Glomerular > 60 Filtrat Rate mL/min Glucose Level 230 H Hemoglobin A1c 8.3 H Calcium Level 8.5 Phosphorus Level 3.6 Magnesium Level 2.0 Total Bilirubin 0.9 Direct Bilirubin 0.00 Indirect 0.9 Bilirubin Aspartate Amino 24 Transf (AST/SGOT) Alanine 39 Aminotransferase (ALT/SGPT) Alkaline 78 Phosphatase Total Protein 7.2 Albumin 3.3 Globulin 3.90 H Albumin/Globulin 0.84 Ratio Thyroid 1.400 Stimulating Hormone (TSH) Free Thyroxine Pending Index Thyroxine (T4) Pending Triiodothyronine 46.9 H (T3) Uptake Medications Medication Current Medications Sodium Chloride 1,000 ml @ 50 mls/hr Q20H IV Last administered on 11/11/18at 18:48; Admin Dose 50 MLS/HR; Start 11/11/18 at 17:05 IV Flush (NS 3 ml) 3 ml PER PROTOCOL IV ; Start 11/11/18 at 17:30 Ondansetron HCl (Zofran Inj) 4 mg Q6H PRN IV NAUSEA/VOMITING; Start 11/11/18 at 17:30 Acetaminophen (Tylenol Tab) 650 mg Q6H PRN PO .PAIN 1-3 OR TEMP; Start 11/11/18 at 17:30 Acetaminophen/ Hydrocodone Bitart ([place] (5/325)) 1 tab Q6H PRN PO .MOD PAIN 4- 6; Start 11/11/18 at 17:30 Zolpidem Tartrate (Ambien) 5 mg QHS PRN PO .INSOMNIA; Start 11/11/18 at 17:30 Pantoprazole (Protonix Tab) 40 mg DAILY@06 PO Last administered on 11/12/18at 05:44; Admin Dose 40 MG; Start 11/12/18 at 06:00 Albuterol/ Ipratropium (Duoneb) 3 ml Q6HWA RESP THERAPY HHN Last administered on 11/12/18at 07:36; Admin Dose 3 ML; Start 11/11/18 at 20:00 Guaifenesin/ Dextromethorphan (Mucinex Dm) 1 tab BID PO Last administered on 11/11/18at 20:43; Admin Dose 1 TAB; Start 11/11/18 at 21:00 Estradiol (Estrace) 1 mg DAILY PO ; Start 11/12/18 at 09:00 Atorvastatin Calcium (Lipitor) 10 mg HS PO Last administered on 11/11/18at 20:43; Admin Dose 10 MG; Start 11/11/18 at 21:00 Gabapentin (Neurontin) 300 mg BID PO Last administered on 11/11/18at 20:43; Admin Dose 300 MG; Start 11/11/18 at 21:00 Metformin HCl (Glucophage) 500 mg BID WITH MEALS PO Last administered on 11/11/18at 19:16; Admin Dose 500 MG; Start 11/11/18 at 18:05 Sertraline HCl (Zoloft) 100 mg DAILY PO ; Start 11/12/18 at 09:00 Losartan Potassium (Cozaar) 100 mg DAILY PO ; Start 11/11/18 at 17:30 Miscellaneous Information 1 ea NOTE XX ; Start 11/11/18 at 18:30 Glucose (Glutose) 15 gm Q15M PRN PO DECREASED GLUCOSE; Start 11/11/18 at 18:30 Glucose (Glutose) 22.5 gm Q15M PRN PO DECREASED GLUCOSE; Start 11/11/18 at 18:30 Dextrose (D50w Syringe) 25 ml Q15M PRN IV DECREASED GLUCOSE; Start 11/11/18 at 18:30 Dextrose (D50w Syringe) 50 ml Q15M PRN IV DECREASED GLUCOSE; Start 11/11/18 at 18:30 Glucagon (Glucagen) 1 mg Q15M PRN IM DECREASED GLUCOSE; Start 11/11/18 at 18:30 Glucose (Glutose) 15 gm Q15M PRN BUCCAL DECREASED GLUCOSE; Start 11/11/18 at 18:30 Insulin Glargine (Lantus) 10 units DAILY@2000 SC Last administered on 11/11/18at 20:44; Admin Dose 10 UNITS; Start 11/11/18 at 20:00 Diphenhydramine HCl (Benadryl) 25 mg TID PRN PO ITCHING Last administered on 11/11/18at 20:43; Admin Dose 25 MG; Start 11/11/18 at 20:00 Piperacillin Sod/ Tazobactam Sod 100 ml @ 200 mls/hr Q6 IVPB ; Start 11/12/18 at 12:00; Status UNV Vancomycin HCl (Vanco Iv Per Pharmacy) VANCOMYCIN PER PHARMACY PER PROTOCOL XX ; Start 11/12/18 at 08:30; Status UNV Diagnostic Test (Pha) (Accu-Chek) XX ; Start 11/13/18 at 02:00; Status UNV Insulin Aspart (Novolog Insulin Pen) NOVOLOG *MODERATE* ALGORITHM WITH MEALS BEDTIME SC ; Start 11/12/18 at 12:00; Status UNV Miscellaneous Information (* Miscellaneous Pharmacy Order) Discontinue all previ... ONCE ONCE XX ; Start 11/12/18 at 08:30; Stop 11/12/18 at 08:31; Status UNV THONY MCDUFFIE MD Nov 12, 2018 08:23
[2018-11-12] MEDS ORDERED: VANCOMYCIN IV PER PHARMACY XX SCH (08:30)
[2018-11-12] MEDS ORDERED: VANCOMYCIN 1 GM 250 ML IVPB ONE (09:00)
[2018-11-12] MEDS: SERTRALINE 100 MG TAB PO SCH (09:04)
[2018-11-12] MEDS: GABAPENTIN 300 MG CAP PO SCH ×2 (09:04→20:16)
[2018-11-12] MEDS: ESTRADIOL 1 MG TAB PO SCH (09:04)
[2018-11-12] MEDS: GUAIFENESIN/DM (SR) TAB PO SCH ×2 (09:04→20:14)
[2018-11-12] MEDS: LOSARTAN 50 MG TAB PO SCH (09:04)
[2018-11-12] MEDS: metFORMIN 500 MG TAB PO SCH ×2 (09:04→17:36)
[2018-11-12] MEDS: L ACIDOPHIL/B LACTIS/B LONGUM CAPSULE PO SCH ×2 (09:05→20:14)
[2018-11-12] MEDS: ENOXAPARIN 40 MG/0.4 ML SYG SC SCH (09:09)
[2018-11-12 09:16] VITALS: BP 102/56; PULSE 91; RESP 26
[2018-11-12] MEDS: PIPER-TAZO 3.375 GM IV (PMX) 100 ML IVPB SCH ×3 (12:14→23:29)
[2018-11-12] MEDS: DIPHENHYDRAMINE 25 MG CAP PO PRN ×2 (12:49→22:29)
[2018-11-12] MEDS: INSULIN ASPART [NOVOLOG] 3 ML PEN SC SCH ×3 (13:09→21:00)
[2018-11-12 14:00] VITALS: BP 104/46; PULSE 84; RESP 28
[2018-11-12] MEDS: SOD CHLORIDE 0.9% 1,000 ML IV SCH (17:36)
--- NOTE | 2018-11-12 17:58 | CONS ---
DATE OF ADMISSION: 11/11/2018 DATE OF CONSULTATION: REASON FOR CONSULTATION: Shortness of breath and pleuritic chest pain. Thank you, Dr. Machado, for this consultation. HISTORY OF PRESENT ILLNESS: This is a pleasant 63-year-old lady, who had presented with a several-da y history of increasing cough, congestion, left-sided pleuritic chest pain. Had a CT angiogram, whic h showed no evidence of pulmonary embolism, but she did have left lower lobe consolidation with pleur al effusion and possible mucus plugging. She had mild leukocytosis, febrile to 99.4. She denies any weight loss. No recent travel history. No hemoptysis or hematemesis. She is a nonsmoker with no h istory of inhalational lung injury. PAST MEDICAL HISTORY: Diabetes mellitus, hypertension, hyperlipidemia, Irma's thyroiditis, fibr omyalgia, hysterectomy with cholecystectomy, possible history of lupus. MEDICATIONS: Per chart include: 1. Xanax. 2. Flovent. 3. [place]. 4. Atorvastatin. 5. Hyzaar. 6. Gabapentin. 7. Metformin. 8. Aspirin. SYSTEMS REVIEW: A 12-point review of systems negative other than mentioned above. PHYSICAL EXAMINATION: GENERAL: A well-nourished and well-developed lady, talking in full and complete sentences. VITAL SIGNS: Currently afebrile, pulse is 90, blood pressure 102/56, O2 saturation 94% on room air. NECK: Supple, no JVD or lymphadenopathy. CARDIAC: S1, S2, no added sounds or murmurs. CHEST: Diminished air entry, left base. ABDOMEN: Soft, nontender. No guarding or rebound. EXTREMITIES: No cyanosis, clubbing, or edema. NEUROLOGIC: Grossly intact. No focal deficits. DIAGNOSTIC DATA: Chest ultrasound demonstrated small complex pleural effusion. Chest x-ray shows le ft lower lobe volume loss. IMPRESSION AND PLAN: Likely community-acquired pneumonia with small complex pleural effusion with pal bsequent trapped lung versus atelectasis. Differential does include endobronchial lesion with postob structive pneumonia. The patient to have CT chest, noncontrast, to evaluate parenchymal findings. M ay require either bronchoscopy or video-assisted thorascopic decortication depending upon the radiogr aphic findings. In the meantime, continue infectious disease recommendations and glycemic management . Dictated By: LEXIS PATRICIA MD SV/NTS Conf#: [id number] DID#: [id number] CC: YADI MACHADO MD;*[facility]*
[2018-11-12 18:56] VITALS: BP 117/57; PULSE 91; RESP 16
[2018-11-12] MEDS: HYDROCODONE/APAP (5/325) TAB PO PRN (19:02)
[2018-11-12 19:30] VITALS: BP 121/57; PULSE 94; RESP 18
[2018-11-12] MEDS: ATORVASTATIN 10 MG TAB PO SCH (20:14)
[2018-11-12] MEDS: INSULIN GLARGINE [LANTus] (100 UNITS/ML) SYG SC SCH (20:17)
[2018-11-12] MEDS ORDERED: VANCOMYCIN 500 MG (PMX) 100 ML IVPB SCH (22:00)
[2018-11-13] MEDS: ACCU-CHEK XX SCH (01:41)
[2018-11-13 02:00] VITALS: BP 100/49; PULSE 80; RESP 18
[2018-11-13] MEDS: DIPHENHYDRAMINE 25 MG CAP PO PRN ×3 (05:52→19:27)
[2018-11-13] MEDS: PANTOPRAZOLE (EC) 40 MG TAB PO SCH (05:56)
[2018-11-13] MEDS: PIPER-TAZO 3.375 GM IV (PMX) 100 ML IVPB SCH (06:00)
--- NOTE | 2018-11-13 06:38 | CONS ---
Assessment/Plan Assessment/Plan Hospital Course (Demo Recall) 1) pneumonia with complex L pleural effusion start vanco/zosyn pt will need thorancentesis and possible VATS with decortication check procalcitonin sputum cx if possible nasal swab for MRSA 11/13 - CT shows large amount of atelectasis but also loculated pleural effusion pt likely to need VATS with bronchoscopy due to allergic reaction will change antibiotics to doxy/merrem 2) SLE not currently active only on neurontin 3) DM 4) allergic drug reaction pt states she never had IV antibiotics before but possible penicillin type drug in past since this allergic reaction happened so quickly it suggests she may have seen the class of drug before which make me suspect zosyn is the cause d/c vanco/zosyn increase benadryl to 50mg QID PRN start doxy/merrem likely the rash will progress over the next several days Consultation Date/Type/Reason Admit Date/Time Nov 11, 2018 at 16:26 Initial Consult Date 11/12/18 Type of Consult ID Date/Time of Note DATE: 11/13/18 TIME: 06:34 24 HR Interval Summary Free Text/Dictation pt states her breathing is better, on RA no N, V had one soft stool overnight itchy skin Exam/Review of Systems Exam Vitals Vital Signs Date Temp Pulse Resp B/P (MAP) Pulse Ox O2 O2 Flow FiO2 Time Delivery Rate 11/13/18 98.8 80 18 100/49 93 02:00 (66) 11/12/18 21 21:42 11/12/18 Room Air 18:56 Intake and Output 11/12/18 11/12/18 11/13/18 1515:00 23:00 07:00 IntakeIntake Total 350 ml 990 ml 500 ml BalanceBalance 350 ml 990 ml 500 ml Constitutional: alert, oriented Eyes: nl sclera ENMT: other (some white coating to tongue) Respiratory: other (decreased BS at L base, 1/2 way up) Cardiovascular: regular rate and rhythm Gastrointestinal: soft Skin: other (diffuse welts noted to back, arms) Results Result Diagram: 11/13/18 0447 11/13/18446 Results 24hrs Laboratory Tests Test 11/12/18 08:46 11/12/18 08:55 11/12/18 12:14 11/12/18 17:34 Bedside Glucose 216 203 187 Procalcitonin 0.13 H Test 11/12/18 20:12 11/13/18 04:47 Bedside Glucose 153 White Blood Count 13.6 H Red Blood Count 3.84 L Hemoglobin 11.2 L Hematocrit 34.6 L Mean Corpuscular 90.1 Volume Mean Corpuscular 29.2 Hemoglobin Mean Corpuscular 32.4 Hemoglobin Concent Red Cell 14.4 Distribution Width Platelet Count 327 Mean Platelet Volume 10.1 Immature 2.900 H Granulocytes % Neutrophils % 77.0 Lymphocytes % 14.4 L Monocytes % 3.8 Eosinophils % 1.6 Basophils % 0.3 Nucleated Red Blood 0.0 Cells % Immature 0.390 H Granulocytes # Neutrophils # 10.4 H Lymphocytes # 2.0 Monocytes # 0.5 Eosinophils # 0.2 Basophils # 0.0 Nucleated Red Blood 0.0 Cells # Sodium Level 140 Potassium Level 3.9 Chloride Level 109 Carbon Dioxide Level 21 Anion Gap 10 Blood Urea Nitrogen 14 # Creatinine 0.67 Est Glomerular > 60 Filtrat Rate mL/min Glucose Level 149 # Calcium Level 8.6 Phosphorus Level 3.5 Magnesium Level 1.9 Medications Medication Current Medications Sodium Chloride 1,000 ml @ 50 mls/hr Q20H IV Last administered on 11/12/18at 17:36; Admin Dose 50 MLS/HR; Start 11/11/18 at 17:05 IV Flush (NS 3 ml) 3 ml PER PROTOCOL IV ; Start 11/11/18 at 17:30 Ondansetron HCl (Zofran Inj) 4 mg Q6H PRN IV NAUSEA/VOMITING; Start 11/11/18 at 17:30 Acetaminophen (Tylenol Tab) 650 mg Q6H PRN PO .PAIN 1-3 OR TEMP; Start 11/11/18 at 17:30 Acetaminophen/ Hydrocodone Bitart ([place] (5/325)) 1 tab Q6H PRN PO .MOD PAIN 4- 6 Last administered on 11/12/18at 19:02; Admin Dose 1 TAB; Start 11/11/18 at 17:30 Zolpidem Tartrate (Ambien) 5 mg QHS PRN PO .INSOMNIA; Start 11/11/18 at 17:30 Pantoprazole (Protonix Tab) 40 mg DAILY@06 PO Last administered on 11/13/18at 05:56; Admin Dose 40 MG; Start 11/12/18 at 06:00 Albuterol/ Ipratropium (Duoneb) 3 ml Q6HWA RESP THERAPY HHN Last administered on 11/12/18at 21:42; Admin Dose 3 ML; Start 11/11/18 at 20:00 Guaifenesin/ Dextromethorphan (Mucinex Dm) 1 tab BID PO Last administered on 11/12/18 20:14; Admin Dose 1 TAB; Start 11/11/18 at 21:00 Estradiol (Estrace) 1 mg DAILY PO Last administered on 11/12/18 09:04; Admin Dose 1 MG; Start 11/12/18 at 09:00 Atorvastatin Calcium (Lipitor) 10 mg HS PO Last administered on 11/12/18 20:1 4; Admin Dose 10 MG; Start 11/11/18 at 21:00 Gabapentin (Neurontin) 300 mg BID PO Last administered on 11/12/18 20:16; Admin Dose 300 MG; Start 11/11/18 at 21:00 Metformin HCl (Glucophage) 500 mg BID WITH MEALS PO Last administered on 11/12/18at 17:36; Admin Dose 500 MG; Start 11/11/18 at 18:05 Sertraline HCl (Zoloft) 100 mg DAILY PO Last administered on 11/12/18 09:04; Admin Dose 100 MG; Start 11/12/18 at 09:00 Losartan Potassium (Cozaar) 100 mg DAILY PO Last administered on 11/12/18 09: 04; Admin Dose 100 MG; Start 11/11/18 at 17:30 Miscellaneous Information 1 ea NOTE XX ; Start 11/11/18 at 18:30 Glucose (Glutose) 15 gm Q15M PRN PO DECREASED GLUCOSE; Start 11/11/18 at 18:30 Glucose (Glutose) 22.5 gm Q15M PRN PO DECREASED GLUCOSE; Start 11/11/18 at 18:30 Dextrose (D50w Syringe) 25 ml Q15M PRN IV DECREASED GLUCOSE; Start 11/11/18 at 18:30 Dextrose (D50w Syringe) 50 ml Q15M PRN IV DECREASED GLUCOSE; Start 11/11/18 at 18:30 Glucagon (Glucagen) 1 mg Q15M PRN IM DECREASED GLUCOSE; Start 11/11/18 at 18:30 Glucose (Glutose) 15 gm Q15M PRN BUCCAL DECREASED GLUCOSE; Start 11/11/18 at 18:30 Diphenhydramine HCl (Benadryl) 25 mg TID PRN PO ITCHING Last administered on 11/13/18at 05:52; Admin Dose 25 MG; Start 11/11/18 at 20:00 Piperacillin Sod/ Tazobactam Sod 100 ml @ 200 mls/hr Q6 IVPB Last administered on 11/12/18at 23:29; Admin Dose 200 MLS/HR; Start 11/12/18 at 12:00 Vancomycin HCl (Vanco Iv Per Pharmacy) VANCOMYCIN PER PHARMACY PER PROTOCOL XX ; Start 11/12/18 at 08:30 Diagnostic Test (Pha) (Accu-Chek) XX ; Start 11/13/18 at 02:00 Insulin Aspart (Novolog Insulin Pen) NOVOLOG *MODERATE* ALGORITHM WITH MEALS BEDTIME SC Last administered on 11/12/18at 17:41; Admin Dose 4 UNIT; Start 11/12/18 at 12:00 Insulin Glargine (Lantus) 15 units DAILY@2000 SC Last administered on 11/12/18at 20:17; Admin Dose 15 UNITS; Start 11/12/18 at 20:00 Enoxaparin Sodium (Lovenox) 40 mg DAILY SC Last administered on 11/12/18at 09:09; Admin Dose 40 MG; Start 11/12/18 at 09:00 Lactobacillus Acidophilus (Florajen3 Capsule) 1 each BID PO Last administered on 11/12/18at 20:14; Admin Dose 1 EACH; Start 11/12/18 at 09:00 Vancomycin HCl 100 ml @ 100 mls/hr Q12H IVPB Last administered on 11/12/18at 21:48; Admin Dose 100 MLS/HR; Start 11/12/18 at 22:00 Miscellaneous Information (*Rx Drug Level Order Reminder*) VANCO TR LEVEL PRIOR... 2100 ONCE XX ; Start 11/13/18 at 21:00; Stop 11/13/18 at 21:01 Promethazine HCl/ Codeine (Phenergan/ Codeine) 5 ml Q6 PRN PO COUGH; Start at 17:30 THONY MCDUFFIE MD Nov 13, 2018 06:38
[2018-11-13] MEDS: ALBUTEROL/IPRATROPIUM (NEB) 3 ML AMP HHN SCH ×3 (07:40→21:38)
[2018-11-13 07:44] VITALS: BP 117/57; PULSE 81; RESP 18
--- NOTE | 2018-11-13 08:12 | PN ---
Date/Time of Note Date/Time of Note DATE: 11/13/18 TIME: 08:07 Assessment/Plan VTE Prophylaxis Risk score (from Ns)>0 risk: 3 SCD applied (from Ns): Yes Pharmacological prophylaxis: LMWH Lines/Catheters IV Catheter Type (from Nrsg): Peripheral IV Assessment/Plan Assessment/Plan 1. Pneumonia with loculated effusion LLL, chest surgery to see, CT scan noted 2. AODM, sugar control has improved, will change insulin to ac tid 3. Rash prob sec to zosyn, abx modified by ID 4. Mouth and tongue are sore, ? yeast- will culture, ID yesrterday thought not present 5. Pericardial effusion noted on ct, will obtain echocardiogram. 6. PT ordered Result Diagram: 11/13/1844611/13/18 0447 Results 24hrs Laboratory Tests Test 11/12/18 08:46 11/12/18 08:55 11/12/18 12:14 11/12/18 17:34 Bedside Glucose 216 203 187 Procalcitonin 0.13 H Test 11/12/18 20:12 11/13/18 04:47 11/13/18 07:00 Bedside Glucose 153 White Blood Count 13.6 H Red Blood Count 3.84 L Hemoglobin 11.2 L Hematocrit 34.6 L Mean Corpuscular 90.1 Volume Mean Corpuscular 29.2 Hemoglobin Mean Corpuscular 32.4 Hemoglobin Concent Red Cell 14.4 Distribution Width Platelet Count 327 Mean Platelet 10.1 Volume Immature 2.900 H Granulocytes % Neutrophils % 77.0 Lymphocytes % 14.4 L Monocytes % 3.8 Eosinophils % 1.6 Basophils % 0.3 Nucleated Red 0.0 Blood Cells % Immature 0.390 H Granulocytes # Neutrophils # 10.4 H Lymphocytes # 2.0 Monocytes # 0.5 Eosinophils # 0.2 Basophils # 0.0 Nucleated Red 0.0 Blood Cells # Sodium Level 140 Potassium Level 3.9 Chloride Level 109 Carbon Dioxide 21 Level Anion Gap 10 Blood Urea 14 # Nitrogen Creatinine 0.67 Est Glomerular > 60 Filtrat Rate mL/min Glucose Level 149 # Calcium Level 8.6 Phosphorus Level 3.5 Magnesium Level 1.9 Lab Scanned Report REFERENCE LAB Subjective 24 Hr Interval Summary ENT: other (tongue and sore and mouth dry, left post chest pleuritic pain) Respiratory: cough (that is not productive) Cardiovascular: No chest pain Gastrointestinal: no complaints Genitourinary: no complaints Musculoskeletal: no complaints Skin: other (rash started last night) Exam/Review of Systems Exam Vitals Vital Signs Date Temp Pulse Resp B/P (MAP) Pulse Ox O2 O2 Flow FiO2 Time Delivery Rate 11/13/18 98.2 81 18 117/57 90 Room Air 07:44 (77) 11/13/18 21 07:40 Intake and Output 11/12/18 11/12/18 11/13/18 1515:00 23:00 07:00 IntakeIntake Total 350 ml 990 ml 500 ml BalanceBalance 350 ml 990 ml 500 ml Neck: No jvd Respiratory: diminished breath sounds (LLL) Cardiovascular: regular rate and rhythm; No rub Gastrointestinal: soft Extremities: No edema Results Results 24hrs Laboratory Tests Test 11/12/18 08:46 11/12/18 08:55 11/12/18 12:14 11/12/18 17:34 Bedside Glucose 216 203 187 Procalcitonin 0.13 H Test 11/12/18 20:12 11/13/18 04:47 11/13/18 07:00 Bedside Glucose 153 White Blood Count 13.6 H Red Blood Count 3.84 L Hemoglobin 11.2 L Hematocrit 34.6 L Mean Corpuscular 90.1 Volume Mean Corpuscular 29.2 Hemoglobin Mean Corpuscular 32.4 Hemoglobin Concent Red Cell 14.4 Distribution Width Platelet Count 327 Mean Platelet 10.1 Volume Immature 2.900 H Granulocytes % Neutrophils % 77.0 Lymphocytes % 14.4 L Monocytes % 3.8 Eosinophils % 1.6 Basophils % 0.3 Nucleated Red 0.0 Blood Cells % Immature 0.390 H Granulocytes # Neutrophils # 10.4 H Lymphocytes # 2.0 Monocytes # 0.5 Eosinophils # 0.2 Basophils # 0.0 Nucleated Red 0.0 Blood Cells # Sodium Level 140 Potassium Level 3.9 Chloride Level 109 Carbon Dioxide 21 Level Anion Gap 10 Blood Urea 14 # Nitrogen Creatinine 0.67 Est Glomerular > 60 Filtrat Rate mL/min Glucose Level 149 # Calcium Level 8.6 Phosphorus Level 3.5 Magnesium Level 1.9 Lab Scanned Report REFERENCE LAB Medications Medication Current Medications Sodium Chloride 1,000 ml @ 50 mls/hr Q20H IV Last administered on 11/12/18at 17:36; Admin Dose 50 MLS/HR; Start 6/25/19 at 17:05 IV Flush (NS 3 ml) 3 ml PER PROTOCOL IV ; Start 11/11/18 at 17:30 Ondansetron HCl (Zofran Inj) 4 mg Q6H PRN IV NAUSEA/VOMITING; Start 11/11/18 at 17:30 Acetaminophen (Tylenol Tab) 650 mg Q6H PRN PO .PAIN 1-3 OR TEMP; Start 11/11/18 at 17:30 Acetaminophen/ Hydrocodone Bitart ([place] (5/325)) 1 tab Q6H PRN PO .MOD PAIN 4- 6 Last administered on 11/12/18at 19:02; Admin Dose 1 TAB; Start 11/11/18 at 17:30 Zolpidem Tartrate (Ambien) 5 mg QHS PRN PO .INSOMNIA; Start 11/11/18 at 17:30 Pantoprazole (Protonix Tab) 40 mg DAILY@06 PO Last administered on 11/13/18 05:56; Admin Dose 40 MG; Start 11/12/18 at 06:00 Albuterol/ Ipratropium (Duoneb) 3 ml Q6HWA RESP THERAPY HHN Last administered on 11/13/18at 07:40; Admin Dose 3 ML; Start 11/11/18 at 20:00 Guaifenesin/ Dextromethorphan (Mucinex Dm) 1 tab BID PO Last administered on 11/12/18at 20:14; Admin Dose 1 TAB; Start 11/11/18 at 21:00 Estradiol (Estrace) 1 mg DAILY PO Last administered on 11/12/18at 09:04; Admin Dose 1 MG; Start 11/12/18 at 09:00 Atorvastatin Calcium (Lipitor) 10 mg HS PO Last administered on 11/12/18 20:14; Admin Dose 10 MG; Start 11/11/18 at 21:00 Gabapentin (Neurontin) 300 mg BID PO Last administered on 11/12/18 20:16; Admin Dose 300 MG; Start 11/11/18 at 21:00 Metformin HCl (Glucophage) 500 mg BID WITH MEALS PO Last administered on 11/12/18at 17:36; Admin Dose 500 MG; Start 11/11/18 at 18:05 Sertraline HCl (Zoloft) 100 mg DAILY PO Last administered on 6/26/19at 09:04; Admin Dose 100 MG; Start 11/12/18 at 09:00 Losartan Potassium (Cozaar) 100 mg DAILY PO Last administered on 11/12/18at 09:04; Admin Dose 100 MG; Start 11/11/18 at 17:30 Miscellaneous Information 1 ea NOTE XX ; Start 11/11/18 at 18:30 Glucose (Glutose) 15 gm Q15M PRN PO DECREASED GLUCOSE; Start 11/11/18 at 18:30 Glucose (Glutose) 22.5 gm Q15M PRN PO DECREASED GLUCOSE; Start 11/11/18 at 18:30 Dextrose (D50w Syringe) 25 ml Q15M PRN IV DECREASED GLUCOSE; Start 11/11/18 at 18:30 Dextrose (D50w Syringe) 50 ml Q15M PRN IV DECREASED GLUCOSE; Start 11/11/18 at 18:30 Glucagon (Glucagen) 1 mg Q15M PRN IM DECREASED GLUCOSE; Start 11/11/18 at 18:30 Glucose (Glutose) 15 gm Q15M PRN BUCCAL DECREASED GLUCOSE; Start 11/11/18 at 18:30 Diagnostic Test (Pha) (Accu-Chek) 1 ea 02 XX ; Start 11/13/18 at 02:00 Insulin Aspart (Novolog Insulin Pen) NOVOLOG *MODERATE* ALGORITHM WITH MEALS BEDTIME SC Last administered on 11/12/18at 17:41; Admin Dose 4 UNIT; Start 11/12/18 at 12:00 Insulin Glargine (Lantus) 15 units DAILY@2000 SC Last administered on 11/12/18at 20:17; Admin Dose 15 UNITS; Start 11/12/18 at 20:00 Enoxaparin Sodium (Lovenox) 40 mg DAILY SC Last administered on 11/12/18at 09:09; Admin Dose 40 MG; Start 11/12/18 at 09:00 Lactobacillus Acidophilus (Florajen3 Capsule) 1 each BID PO Last administered on 11/12/18at 20:14; Admin Dose 1 EACH; Start 11/12/18 at 09:00 Promethazine HCl/ Codeine (Phenergan/ Codeine) 5 ml Q6 PRN PO COUGH; Start 11/12/18 at 17:30 Diphenhydramine HCl (Benadryl) 50 mg QID PRN PO ITCHING; Start 11/13/18 at 07:00 Doxycycline Hyclate (Vibramycin) 100 mg BID PO ; Start 11/13/18 at 09:00 Meropenem/Sodium Chloride 50 ml @ 100 mls/hr Q8 IVPB ; Start 11/13/18 at 14:00 YADI MACHADO MD Nov 13, 2018 08:12
[2018-11-13] MEDS: GABAPENTIN 300 MG CAP PO SCH ×2 (08:38→20:09)
[2018-11-13] MEDS: LOSARTAN 50 MG TAB PO SCH (08:38)
[2018-11-13] MEDS: GUAIFENESIN/DM (SR) TAB PO SCH ×2 (08:38→20:09)
[2018-11-13] MEDS: DOXYCYCLINE 100 MG TAB PO SCH ×2 (08:38→20:09)
[2018-11-13] MEDS: L ACIDOPHIL/B LACTIS/B LONGUM CAPSULE PO SCH ×2 (08:38→20:09)
[2018-11-13] MEDS: ESTRADIOL 1 MG TAB PO SCH (08:39)
[2018-11-13] MEDS: ENOXAPARIN 40 MG/0.4 ML SYG SC SCH (08:39)
[2018-11-13] MEDS: metFORMIN 500 MG TAB PO SCH ×2 (08:39→18:17)
[2018-11-13] MEDS: SERTRALINE 100 MG TAB PO SCH (08:39)
[2018-11-13] MEDS: SOD CHLORIDE 0.9% 1,000 ML IV SCH ×2 (08:41→15:44)
[2018-11-13] MEDS: INSULIN ASPART [NOVOLOG] 3 ML PEN SC SCH ×3 (09:00→17:25)
[2018-11-13] MEDS ORDERED: INSULIN ASPART [NOVOLOG] 3 ML PEN SC SCH (11:10)
--- NOTE | 2018-11-13 12:09 | CONS ---
DATE OF ADMISSION: 11/11/2018 DATE OF CONSULTATION: 11/13/2018 HISTORY OF PRESENT ILLNESS: Ms. Cross is a 63-year-old female who I was asked to see in [facility] for a clotted left parapneumonic effusion. The patient became ill about 10 days ago with cough a nd chills. The next day she developed some pain in her left upper chest. She came to the emergency room at [facility], had a small effusion and pneumonia, and was sent home with just Zithroma x. She did not significantly improve, and then came back to the emergency room earlier in the week a nd was admitted to the hospital. A CT scan now showed a large clotted parapneumonic effusion and a c ollapsed left lower lobe. She was started on Zosyn and vancomycin. She has improved somewhat since being here. White count was initially 20,000 and is now down to 13,000. She has essentially been af ebrile since she has been here, her breathing has improved; however, she states she has pulmonary his tory of asthma, she states for about a year now. She also has history of reflux and occasionally francois n refluxes at night. She has not had any recent dental work or loss of consciousness. PAST MEDICAL HISTORY: As noted included asthma. She has also had a diagnosis of lupus for about 4 o r 5 years which initially she said showed up during a flu-like illness. It sounds like the lupus kemar claudine affects her skin. Other medical problems have included diabetes mellitus, hypertension. She has had a history of Irma's thyroiditis as well and hypercholesterolemia. PAST SURGICAL HISTORY: Included tonsillectomy, she has had a cholecystectomy and a hysterectomy. FAMILY HISTORY: Positive for mother of diabetic foot sepsis complications, her father of l khris cancer. She had a sister who had a brain aneurysm. REVIEW OF SYSTEMS: No history of TIAs or strokes. Eyes: No glaucoma or cataracts. EARS: No hearing loss or vertigo. Mouth, no sores or trouble swallowing. She does have symptoms of reflux. No history of ulcers, hepatitis, jaundice, or bleeding of bowels. GENITOURINARY: Denies any known history of kidney disease or blood in the urine, or urine infection. MUSCULOSKELETAL: She does describe a history of arthritis, possibly related to her lupus. SKIN: She has a current rash related to the antibiotics she is receiving in the hospital apparently has had some skin rashes related to her lupus as well. PULMONARY: She has a history of asthma for w hich she takes inhalers and inhaled steroids. She has been a non-smoker. SOCIAL HISTORY: She is . Her is disabled after an auto accident. She has 2 children . She lives close to a hospital. PHYSICAL EXAMINATION: GENERAL: This is a pleasant, slightly built female. VITAL SIGNS: Temperature is 98.2, blood pressure 117/57, saturation 90% on room air. HEENT: Eyes PERRL, extraocular movements were intact. Mouth: No oral lesions. Tongue midline. NECK: No bruits, lymphadenopathy or thyromegaly. LUNGS: Decreased breath sounds at the left base compared to the right. No wheezes or rhonchi. HEART: Regular rhythm without rubs or murmurs. LYMPH NODES: None the neck, axilla or groin. ABDOMEN: Soft, without organomegaly or tenderness. EXTREMITIES: Pulses excellent radial, femoral, and dorsalis pedis bilaterally. NEUROLOGIC: Awake, alert. Moving extremities without gross limitation. ASSESSMENT AND PLAN: 1. Clotted parapneumonic effusion, possibly related to reflux and/or spontaneous community-acquired pneumonia. 2. History of asthma. 3. History of Irma's thyroiditis. 4. History of lupus. 5. History of diabetes mellitus. 6. Hypertension. 7. Hypercholesterolemia. 8. History of cholecystectomy. 9. History of hysterectomy. RECOMMENDATIONS: This patient should have a pigtail catheter inserted and tPA. This will most likel y dissolve the effusion and the pneumonia can be treated with antibiotics. Some concern is her histo ry of recent asthma. One has to keep in mind an obstructing lesion in the bronchus and should this c ontinue to be an issue, bronchoscopy should be considered to rule out an endobronchial lesion such as a bronchial abnormal leading to her current problem as well. Thank you for allowing me to see her. Dictated By: YA PANDEY MD, MS/WARD Conf#: [id number] DID#: [id number]
--- NOTE | 2018-11-13 12:37 | CONS ---
Consult Date/Type/Reason Admit Date/Time Nov 11, 2018 at 16:26 Initial Consult Date 11/12/18 Type of Consult Pulmonary Date/Time of Note DATE: 11/13/18 TIME: 12:36 Subjective Patient comfortable this morning still having pain. Objective Vital Signs Date Temp Pulse Resp B/P (MAP) Pulse Ox O2 O2 Flow FiO2 Time Delivery Rate 11/13/18 98.2 81 18 117/57 90 Room Air 07:44 (77) 11/13/18 21 07:40 Intake and Output 11/12/18 11/12/18 11/13/18 1515:00 23:00 07:00 IntakeIntake Total 350 ml 990 ml 500 ml BalanceBalance 350 ml 990 ml 500 ml Exam GENERAL: VITAL SIGNS: per chart NECK: Supple. No JVD or lymphadenopathy. CARDIAC EXAM: S1, S2. No added sounds or murmurs. CHEST: Diminished air entry left lung ABDOMEN: Soft, nontender. No guarding or rebound. EXTREMITIES: No cyanosis, clubbing or edema. NEUROLOGIC: Generalized weakness. No focal deficits. Vent Setting Fraction of Inspired Oxygen pe: 21 Results/Medications Result Diagram: 11/13/18 0447 11/13/18 0447 Results 24 hrs Laboratory Tests Test 11/12/18 17:34 11/12/18 20:12 11/13/18 04:47 11/13/18 07:00 Bedside Glucose 187 153 White Blood Count 13.6 H Red Blood Count 3.84 L Hemoglobin 11.2 L Hematocrit 34.6 L Mean Corpuscular 90.1 Volume Mean Corpuscular 29.2 Hemoglobin Mean Corpuscular 32.4 Hemoglobin Concent Red Cell 14.4 Distribution Width Platelet Count 327 Mean Platelet 10.1 Volume Immature 2.900 H Granulocytes % Neutrophils % 77.0 Lymphocytes % 14.4 L Monocytes % 3.8 Eosinophils % 1.6 Basophils % 0.3 Nucleated Red 0.0 Blood Cells % Immature 0.390 H Granulocytes # Neutrophils # 10.4 H Lymphocytes # 2.0 Monocytes # 0.5 Eosinophils # 0.2 Basophils # 0.0 Nucleated Red 0.0 Blood Cells # Sodium Level 140 Potassium Level 3.9 Chloride Level 109 Carbon Dioxide 21 Level Anion Gap 10 Blood Urea 14 # Nitrogen Creatinine 0.67 Est Glomerular > 60 Filtrat Rate mL/min Glucose Level 149 # Calcium Level 8.6 Phosphorus Level 3.5 Magnesium Level 1.9 Lab Scanned Report REFERENCE LAB Test 11/13/18 08:37 Bedside Glucose 141 Medications Current Medications Sodium Chloride 1,000 ml @ 50 mls/hr Q20H IV Last administered on 11/12/18 17:36; Admin Dose 50 MLS/HR; Start 11/11/18 at 17:05 IV Flush (NS 3 ml) 3 ml PER PROTOCOL IV ; Start 11/11/18 at 17:30 Ondansetron HCl (Zofran Inj) 4 mg Q6H PRN IV NAUSEA/VOMITING; Start 11/11/18 at 17:30 Acetaminophen (Tylenol Tab) 650 mg Q6H PRN PO .PAIN 1-3 OR TEMP; Start 11/11/18 at 17:30 Acetaminophen/ Hydrocodone Bitart ([place] (5/325)) 1 tab Q6H PRN PO .MOD PAIN 4- 6 Last administered on 11/12/18at 19:02; Admin Dose 1 TAB; Start 11/11/18 at 17:30 Zolpidem Tartrate (Ambien) 5 mg QHS PRN PO .INSOMNIA; Start 11/11/18 at 17:30 Pantoprazole (Protonix Tab) 40 mg DAILY@06 PO Last administered on 11/13/18 05:56; Admin Dose 40 MG; Start 11/12/18 at 06:00 Albuterol/ Ipratropium (Duoneb) 3 ml Q6HWA RESP THERAPY HHN Last administered on 11/13/18 07:40; Admin Dose 3 ML; Start 11/11/18 at 20:00 Guaifenesin/ Dextromethorphan (Mucinex Dm) 1 tab BID PO Last administered on 11/13/18 08:38; Admin Dose 1 TAB; Start 11/11/18 at 21:00 Estradiol (Estrace) 1 mg DAILY PO Last administered on 11/13/18 08:39; Admin Dose 1 MG; Start 11/12/18 at 09:00 Atorvastatin Calcium (Lipitor) 10 mg HS PO Last administered on 11/12/18at 20:14; Admin Dose 10 MG; Start 11/11/18 at 21:00 Gabapentin (Neurontin) 300 mg BID PO Last administered on 11/13/18 08:38; Adm in Dose 300 MG; Start 11/11/18 at 21:00 Metformin HCl (Glucophage) 500 mg BID WITH MEALS PO Last administered on 11/13/18at 08:39; Admin Dose 500 MG; Start 11/11/18 at 18:05 Sertraline HCl (Zoloft) 100 mg DAILY PO Last administered on 11/13/18at 08:39; Admin Dose 100 MG; Start 11/12/18 at 09:00 Losartan Potassium (Cozaar) 100 mg DAILY PO Last administered on 11/13/18at 08:38; Admin Dose 100 MG; Start 11/11/18 at 17:30 Miscellaneous Information 1 ea NOTE XX ; Start 11/11/18 at 18:30 Glucose (Glutose) 15 gm Q15M PRN PO DECREASED GLUCOSE; Start 11/11/18 at 18:30 Glucose (Glutose) 22.5 gm Q15M PRN PO DECREASED GLUCOSE; Start 11/11/18 at 18:30 Dextrose (D50w Syringe) 25 ml Q15M PRN IV DECREASED GLUCOSE; Start 11/11/18 at 18:30 Dextrose (D50w Syringe) 50 ml Q15M PRN IV DECREASED GLUCOSE; Start 11/11/18 at 18:30 Glucagon (Glucagen) 1 mg Q15M PRN IM DECREASED GLUCOSE; Start 11/11/18 at 18:30 Glucose (Glutose) 15 gm Q15M PRN BUCCAL DECREASED GLUCOSE; Start 11/11/18 at 18:30 Diagnostic Test (Pha) (Accu-Chek) 1 ea 02 XX ; Start 11/13/18 at 02:00 Insulin Glargine (Lantus) 15 units DAILY@2000 SC Last administered on 11/12/18at 20:17; Admin Dose 15 UNITS; Start 11/12/18 at 20:00 Enoxaparin Sodium (Lovenox) 40 mg DAILY SC Last administered on 11/12/18at 09:09; Admin Dose 40 MG; Start 11/12/18 at 09:00 Lactobacillus Acidophilus (Florajen3 Capsule) 1 each BID PO Last administered on 11/13/18at 08:38; Admin Dose 1 EACH; Start 11/12/18 at 09:00 Promethazine HCl/ Codeine (Phenergan/ Codeine) 5 ml Q6 PRN PO COUGH; Start 11/12/18 at 17:30 Diphenhydramine HCl (Benadryl) 50 mg QID PRN PO ITCHING Last administered on 11/13/18at 11:18; Admin Dose 50 MG; Start 11/13/18 at 07:00 Doxycycline Hyclate (Vibramycin) 100 mg BID PO Last administered on 11/13/18at 08:38; Admin Dose 100 MG; Start 11/13/18 at 09:00 Meropenem/Sodium Chloride 50 ml @ 100 mls/hr Q8 IVPB ; Start 11/13/18 at 14:00 Insulin Aspart (Novolog Insulin Pen) NOVOLOG *MODERATE* ALGORITHM AC MEALS SC Last administered on 11/13/18at 09:00; Admin Dose 2 UNIT; Start 11/13/18 at 09:00 Assessment/Plan Hospital Course (Demo Recall) Assessment, plan 1. Community-acquired pneumonia likely loculated left pleural effusion 2. Appreciate thoracic surgery evaluation will request pigtail catheter placement 3. Continue antibiotics and repeat imaging if not improving will perform bronchoscopy LEXIS PATRICIA MD, [facility] Nov 13, 2018 12:37
[2018-11-13] MEDS: MEROPENEM 1 GM/50ML(PMX) 50 ML IVPB SCH ×2 (14:49→22:16)
[2018-11-13 15:04] VITALS: BP 107/53; PULSE 92; RESP 18
--- NOTE | 2018-11-13 15:54 | RADRPT ---
Echocardiogram Report Patient Name: [place] CASTRO ID: [id number] : 1955 (63y 6m)Study Date: 11/13/2018 8:48:01 AM Gender: FAccession #: [id number] Tech: Ed Merritt [facility] Location: [id number] Ref.Physician: YADI MACHADO Height(Cm): BSA: Weight(Kg): Quality: AdequateOrder Physician: YADI MACHADO Account #: Procedures: Echocardiographic Report: Transthoracic echocardiogram with complete 2D, M-Mode, and doppler examination. Indications: Pericardial Effusion on CT scan. Measurements: 2D/M Mode Doppler Measurement Value Normal Range Measurement Value Normal Range LVIDd 2D 3.6 [ 3.8 - 5.2 ] cm AV Peak Carmelo 1.7 [ 100.0 - 170.0 ] cm/sec LVIDs 2D 2.4 [ 2.2 - 3.5 ] cm AV Peak PG 11.0 [ 2.0 - 9.0 ] mmHg LVPWd 2D 0.8 [ 0.6 - 0.9 ] cm LVOT Peak Carmelo 1.2 [ 70.0 - 110.0 ] cm/sec IVSd 2D 1.2 [ 0.6 - 0.9 ] cm LVOT Peak PG 6.0 [ 2.0 - 6.0 ] mmHg AoR Diam 2D 2.7 [ 2.3 - 3.1 ] cm MV E Peak Carmelo 0.7 [ 60.0 - 130.0 ] cm/sec EDV 2D 55.9 [ 46.0 - 106.0 ] ml MV A Peak Carmelo 0.9 [ 100.0 - 120.0 ] cm/sec ESV 2D 19.3 [ 14.0 - 42.0 ] ml MV E/A 0.8 [ 0.8 - 1.5 ] ratio EF 2D 65.5 [ 54.0 - 74.0 ] percent MV Decel Time 162 [ 104 - 258 ] msec LA Dimen 2D 2.6 [ 2.7 - 3.8 ] cm Lat E` Carmelo 0.1 [ 10.0 - 15.0 ] cm/sec Lateral E/E` 7.9 [ 1.0 - 2.0 ] ratio Med E` Carmelo 0.1 cm/sec MV E/A 0.8 [ 0.8 - 1.5 ] ratio TR Peak Carmelo 2.0 [ 100.0 - 280.0 ] cm/sec TR Peak PG 16.0 mmHg RVSP 24.0 [ 10.0 - 36.0 ] mmHg Findings: Left Ventricle: Normal left ventricular systolic function. Normal left ventricular cavity size. Mild asymmetric septal hypertrophy. Ejection fraction is visually estimated at 65 %. Tissue Doppler/Mitral Doppler indices are consistent with impaired relaxation (Stage I diastolic dysfunction). Right Ventricle: Normal right ventricular size. Normal right ventricular systolic function. Left Atrium: The left atrium is normal in size. Right Atrium: The right atrium is normal in size. Mitral Valve: Mild mitral annular calcification. Trace mitral regurgitation. Aortic Valve: No significant aortic stenosis or insufficiency. Aortic cusps appear mildly calcified. Tricuspid Valve: Normal appearance of the tricuspid valve. Normal right ventricular systolic pressure. The estimated Peak RVSP is 24 mmHg. There is trace tricuspid regurgitation. Pulmonic Valve: Pulmonic valve not well visualized. Pericardium: Very small circumferential pericardial effusion, NO evidence of hemodynamic significance/tamponade. Aorta: Normal aortic root. IVC: Normal size and normal respiratory collapse consistent with normal right atrial pressure. Conclusions: Normal left ventricular systolic function. Normal left ventricular cavity size. Mild asymmetric septal hypertrophy. Ejection fraction is visually estimated at 65 %. Tissue Doppler/Mitral Doppler indices are consistent with impaired relaxation (Stage I diastolic dysfunction). Normal right ventricular size. Normal right ventricular systolic function. The left atrium is normal in size. Mild mitral annular calcification. Trace mitral regurgitation. No significant aortic stenosis or insufficiency. Aortic cusps appear mildly calcified. Normal appearance of the tricuspid valve. Normal right ventricular systolic pressure. The estimated Peak RVSP is 24 mmHg. There is trace tricuspid regurgitation. Very small circumferential pericardial effusion, NO evidence of hemodynamic significance/tamponade. Normal size and normal respiratory collapse consistent with normal right atrial pressure. No Vegetation, masses, or thrombi seen. Electronically Signed By: Lawrence Carranza 2018-11-13 15:53:57 PDT
--- NOTE | 2018-11-13 17:09 | RADRPT ---
Vent Rate: 83 bpm RR Interval: 720 msec [place] Interval: 142 msec QRS Duration: 91 msec QT Interval: 371 msec QTC Interval: 437 msec P-R-T [place]: 51 - -37 - 48 degrees Sinus rhythm...normal P axis, V-rate 50- 99 Left axis deviation...QRS axis (-30,-90) Electronically Signed By: Lawrence Carranza
[2018-11-13 19:30] VITALS: BP 126/56; PULSE 99; RESP 18
[2018-11-13] MEDS: ATORVASTATIN 10 MG TAB PO SCH (20:09)
[2018-11-13] MEDS: INSULIN GLARGINE [LANTus] (100 UNITS/ML) SYG SC SCH (20:23)
[2018-11-14] MEDS: PROMETHAZINE/CODEINE 5ML CUP PO PRN ×2 (00:43→08:51)
[2018-11-14] MEDS: ACCU-CHEK XX SCH (02:00)
[2018-11-14 02:20] VITALS: BP 116/56; PULSE 94; RESP 18
[2018-11-14] MEDS: SOD CHLORIDE 0.9% 1,000 ML IV SCH (02:26)
[2018-11-14] MEDS: MEROPENEM 1 GM/50ML(PMX) 50 ML IVPB SCH ×3 (05:43→21:50)
[2018-11-14] MEDS: PANTOPRAZOLE (EC) 40 MG TAB PO SCH (05:43)
[2018-11-14] MEDS: INSULIN ASPART [NOVOLOG] 3 ML PEN SC SCH ×3 (07:20→18:00)
--- NOTE | 2018-11-14 07:42 | CONS ---
Assessment/Plan Assessment/Plan Hospital Course (Demo Recall) 1) pneumonia with complex L pleural effusion start vanco/zosyn pt will need thorancentesis and possible VATS with decortication check procalcitonin sputum cx if possible nasal swab for MRSA 11/13 - CT shows large amount of atelectasis but also loculated pleural effusion pt likely to need VATS with bronchoscopy due to allergic reaction will change antibiotics to doxy/merrem 11/14 - pt doing ok on doxy/merrem pt to get pigtail cath with probable tPA infusion into it I have placed orders for pleural fluid analysis follow up on repeat CXR to see if bronch may be necessary sputum cx has yeast 2) SLE not currently active only on neurontin 3) DM 4) allergic drug reaction pt states she never had IV antibiotics before but possible penicillin type drug in past since this allergic reaction happened so quickly it suggests she may have seen the class of drug before which make me suspect zosyn is the cause d/c vanco/zosyn increase benadryl to 50mg QID PRN start doxy/merrem likely the rash will progress over the next several days 11/14 - rash is actually better continue with doxy/merrem 5) probable thrush start diflucan Consultation Date/Type/Reason Admit Date/Time Nov 11, 2018 at 16:26 Initial Consult Date 11/12/18 Type of Consult ID Date/Time of Note DATE: 11/14/18 TIME: 07:35 24 HR Interval Summary Free Text/Dictation itch and rash are improved no N, V, D no abd pain still with L sided chest pain with deep breathing slight soreness to mouth but better Exam/Review of Systems Exam Vitals Vital Signs Date Temp Pulse Resp B/P (MAP) Pulse Ox O2 O2 Flow FiO2 Time Delivery Rate 11/14/18 99.0 94 18 116/56 92 02:20 (76) 11/13/18 21 21:38 11/13/18 Room Air 15:04 Intake and Output 11/13/18 11/13/18 11/14/18 1515:00 23:00 07:00 IntakeIntake Total 600 ml 490 ml 1100 ml BalanceBalance 600 ml 490 ml 1100 ml Constitutional: alert, oriented Eyes: nl sclera ENMT: other (slight white dusting of tongue) Respiratory: other (decreased BS at L base, some crackles at R base) Cardiovascular: regular rate and rhythm Gastrointestinal: soft, non-tender Results Result Diagram: 11/14/18 0455 11/14/18 0455 Results 24hrs Laboratory Tests Test 11/13/18 08:37 11/13/18 12:38 11/13/18 17:38 11/13/18 20:21 Bedside Glucose 141 158 138 161 Test 11/13/18 21:14 11/14/18 04:55 Vancomycin Level < 5.0 L Trough White Blood Count 11.7 H Red Blood Count 3.35 L Hemoglobin 9.7 L Hematocrit 29.4 L Mean Corpuscular 87.8 Volume Mean Corpuscular 29.0 Hemoglobin Mean Corpuscular 33.0 Hemoglobin Concent Red Cell 14.2 Distribution Width Platelet Count 308 Mean Platelet Volume 10.3 Immature 1.500 H Granulocytes % Neutrophils % 76.2 Lymphocytes % 15.6 Monocytes % 5.2 Eosinophils % 1.4 Basophils % 0.1 Nucleated Red Blood 0.0 Cells % Immature 0.170 H Granulocytes # Neutrophils # 8.9 H Lymphocytes # 1.8 Monocytes # 0.6 Eosinophils # 0.2 Basophils # 0.0 Nucleated Red Blood 0.0 Cells # Sodium Level 139 Potassium Level 3.6 Chloride Level 109 Carbon Dioxide Level 22 Anion Gap 8 Blood Urea Nitrogen 8 Creatinine 0.57 Est Glomerular > 60 Filtrat Rate mL/min Glucose Level 132 Calcium Level 8.6 Phosphorus Level 3.2 Magnesium Level 1.7 Medications Medication Current Medications Sodium Chloride 1,000 ml @ 50 mls/hr Q20H IV Last administered on 11/14/18at 02:26; Admin Dose 50 MLS/HR; Start 11/11/18 at 17:05 IV Flush (NS 3 ml) 3 ml PER PROTOCOL IV ; Start 11/11/18 at 17:30 Ondansetron HCl (Zofran Inj) 4 mg Q6H PRN IV NAUSEA/VOMITING; Start 11/11/18 at 17:30 Acetaminophen (Tylenol Tab) 650 mg Q6H PRN PO .PAIN 1-3 OR TEMP; Start 11/11/18 at 17:30 Acetaminophen/ Hydrocodone Bitart ([place] (5/325)) 1 tab Q6H PRN PO .MOD PAIN 4- 6 Last administered on 11/12/18at 19:02; Admin Dose 1 TAB; Start 11/11/18 at 17:30 Zolpidem Tartrate (Ambien) 5 mg QHS PRN PO .INSOMNIA; Start 11/11/18 at 17:30 Pantoprazole (Protonix Tab) 40 mg DAILY@06 PO Last administered on 11/14/18at 0 5:43; Admin Dose 40 MG; Start 11/12/18 at 06:00 Albuterol/ Ipratropium (Duoneb) 3 ml Q6HWA RESP THERAPY HHN Last administered on 11/13/18 21:38; Admin Dose 3 ML; Start 11/11/18 at 20:00 Guaifenesin/ Dextromethorphan (Mucinex Dm) 1 tab BID PO Last administered on 11/13/18 20:09; Admin Dose 1 TAB; Start 11/11/18 at 21:00 Estradiol (Estrace) 1 mg DAILY PO Last administered on 11/13/18 08:39; Admin Dose 1 MG; Start 11/12/18 at 09:00 Atorvastatin Calcium (Lipitor) 10 mg HS PO Last administered on 11/13/18 20:09; Admin Dose 10 MG; Start 11/11/18 at 21:00 Gabapentin (Neurontin) 300 mg BID PO Last administered on 11/13/18 20:09; Admin Dose 300 MG; Start 11/11/18 at 21:00 Metformin HCl (Glucophage) 500 mg BID WITH MEALS PO Last administered on 11/13/18 18:17; Admin Dose 500 MG; Start 11/11/18 at 18:05 Sertraline HCl (Zoloft) 100 mg DAILY PO Last administered on 11/13/18 08:39; Admin Dose 100 MG; Start 11/12/18 at 09:00 Losartan Potassium (Cozaar) 100 mg DAILY PO Last administered on 11/13/18 08:38; Admin Dose 100 MG; Start 11/11/18 at 17:30 Miscellaneous Information 1 ea NOTE XX ; Start 11/11/18 at 18:30 Glucose (Glutose) 15 gm Q15M PRN PO DECREASED GLUCOSE; Start 11/11/18 at 18:30 Glucose (Glutose) 22.5 gm Q15M PRN PO DECREASED GLUCOSE; Start 11/11/18 at 18:30 Dextrose (D50w Syringe) 25 ml Q15M PRN IV DECREASED GLUCOSE; Start 11/11/18 at 18:30 Dextrose (D50w Syringe) 50 ml Q15M PRN IV DECREASED GLUCOSE; Start 11/11/18 at 18:30 Glucagon (Glucagen) 1 mg Q15M PRN IM DECREASED GLUCOSE; Start 11/11/18 at 18:30 Glucose (Glutose) 15 gm Q15M PRN BUCCAL DECREASED GLUCOSE; Start 11/11/18 at 18:30 Diagnostic Test (Pha) (Accu-Chek) 1 ea 02 XX ; Start 11/13/18 at 02:00 Insulin Glargine (Lantus) 15 units DAILY@2000 SC Last administered on 11/13/18 20:23; Admin Dose 15 UNITS; Start 11/12/18 at 20:00 Enoxaparin Sodium (Lovenox) 40 mg DAILY SC Last administered on 11/12/18 09:09; Admin Dose 40 MG; Start 11/12/18 at 09:00 Lactobacillus Acidophilus (Florajen3 Capsule) 1 each BID PO Last administered on 11/13/18 20:09; Admin Dose 1 EACH; Start 11/12/18 at 09:00 Promethazine HCl/ Codeine (Phenergan/ Codeine) 5 ml Q6 PRN PO COUGH Last administered on 11/14/18 00:43; Admin Dose 5 ML; Start 11/12/18 at 17:30 Diphenhydramine HCl (Benadryl) 50 mg QID PRN PO ITCHING Last administered on 11/13/18 19:27; Admin Dose 50 MG; Start 11/13/18 at 07:00 Doxycycline Hyclate (Vibramycin) 100 mg BID PO Last administered on 11/13/18 20:09; Admin Dose 100 MG; Start 11/13/18 at 09:00 Meropenem/Sodium Chloride 50 ml @ 100 mls/hr Q8 IVPB Last administered on 11/14/18 05:43; Admin Dose 100 MLS/HR; Start 11/13/18 at 14:00 Insulin Aspart (Novolog Insulin Pen) NOVOLOG *MODERATE* ALGORITHM AC MEALS SC Last administered on 11/13/18 13:01; Admin Dose 2 UNIT; Start 11/13/18 at 09:00 THONY MCDUFFIE MD Nov 14, 2018 07:42
[2018-11-14 07:46] VITALS: BP 111/74; PULSE 79; RESP 18
[2018-11-14] MEDS: metFORMIN 500 MG TAB PO SCH ×2 (08:46→18:01)
[2018-11-14] MEDS: DOXYCYCLINE 100 MG TAB PO SCH ×2 (08:46→20:06)
[2018-11-14] MEDS: ESTRADIOL 1 MG TAB PO SCH (08:46)
[2018-11-14] MEDS: GUAIFENESIN/DM (SR) TAB PO SCH ×2 (08:46→20:06)
[2018-11-14] MEDS: L ACIDOPHIL/B LACTIS/B LONGUM CAPSULE PO SCH ×2 (08:46→20:06)
[2018-11-14] MEDS: SERTRALINE 100 MG TAB PO SCH (08:46)
[2018-11-14] MEDS: GABAPENTIN 300 MG CAP PO SCH ×2 (08:48→20:06)
[2018-11-14] MEDS: LOSARTAN 50 MG TAB PO SCH (08:48)
[2018-11-14] MEDS: FLUCONAZOLE 100 MG TAB PO SCH (08:48)
[2018-11-14] MEDS: ENOXAPARIN 40 MG/0.4 ML SYG SC SCH (09:00)
[2018-11-14] MEDS: ALBUTEROL/IPRATROPIUM (NEB) 3 ML AMP HHN SCH ×3 (09:06→21:46)
--- NOTE | 2018-11-14 09:15 | CONS ---
Assessment/Plan Assessment/Plan Assessment/Plan (Daily) left loculated effusion ct pigtail catheter today Consultation Date/Type/Reason Admit Date/Time Nov 11, 2018 at 16:26 Initial Consult Date 11/12/18 Date/Time of Note DATE: 11/14/18 TIME: 09:14 24 HR Interval Summary Constitutional: no complaints Exam/Review of Systems Exam Vitals Vital Signs Date Temp Pulse Resp B/P (MAP) Pulse Ox O2 O2 Flow FiO2 Time Delivery Rate 11/14/18 82 18 95 21 09:07 11/14/18 98.6 111/74 Room Air 07:46 (86) Intake and Output 11/13/18 11/13/18 11/14/18 1414:59 22:59 06:59 IntakeIntake Total 600 ml 490 ml 1100 ml BalanceBalance 600 ml 490 ml 1100 ml Constitutional: alert Respiratory: diminished breath sounds, other (left) Results Result Diagram: 11/14/18 0455 11/14/18 0455 Results 24hrs Laboratory Tests Test 11/13/18 12:38 11/13/18 17:38 11/13/18 20:21 11/13/18 21:14 Bedside Glucose 158 138 161 Vancomycin Level < 5.0 L Trough Test 11/14/18 04:55 11/14/18 08:16 White Blood Count 11.7 H Red Blood Count 3.35 L Hemoglobin 9.7 L Hematocrit 29.4 L Mean Corpuscular 87.8 Volume Mean Corpuscular 29.0 Hemoglobin Mean Corpuscular 33.0 Hemoglobin Concent Red Cell 14.2 Distribution Width Platelet Count 308 Mean Platelet Volume 10.3 Immature 1.500 H Granulocytes % Neutrophils % 76.2 Lymphocytes % 15.6 Monocytes % 5.2 Eosinophils % 1.4 Basophils % 0.1 Nucleated Red Blood 0.0 Cells % Immature 0.170 H Granulocytes # Neutrophils # 8.9 H Lymphocytes # 1.8 Monocytes # 0.6 Eosinophils # 0.2 Basophils # 0.0 Nucleated Red Blood 0.0 Cells # Sodium Level 139 Potassium Level 3.6 Chloride Level 109 Carbon Dioxide Level 22 Anion Gap 8 Blood Urea Nitrogen 8 Creatinine 0.57 Est Glomerular > 60 Filtrat Rate mL/min Glucose Level 132 Calcium Level 8.6 Phosphorus Level 3.2 Magnesium Level 1.7 Bedside Glucose 109 Medications Medication Current Medications Sodium Chloride 1,000 ml @ 50 mls/hr Q20H IV Last administered on 11/14/18 02:26; Admin Dose 50 MLS/HR; Start 11/11/18 at 17:05 IV Flush (NS 3 ml) 3 ml PER PROTOCOL IV ; Start 11/11/18 at 17:30 Ondansetron HCl (Zofran Inj) 4 mg Q6H PRN IV NAUSEA/VOMITING; Start 11/11/18 at 17:30 Acetaminophen (Tylenol Tab) 650 mg Q6H PRN PO .PAIN 1-3 OR TEMP; Start 11/11/18 at 17:30 Acetaminophen/ Hydrocodone Bitart ([place] (5/325)) 1 tab Q6H PRN PO .MOD PAIN 4- 6 Last administered on 11/12/18 19:02; Admin Dose 1 TAB; Start 11/11/18 at 17:30 Zolpidem Tartrate (Ambien) 5 mg QHS PRN PO .INSOMNIA; Start 11/11/18 at 17:30 Pantoprazole (Protonix Tab) 40 mg DAILY@06 PO Last administered on 11/14/18 05:43; Admin Dose 40 MG; Start 11/12/18 at 06:00 Albuterol/ Ipratropium (Duoneb) 3 ml Q6HWA RESP THERAPY HHN Last administered on 11/14/18 09:06; Admin Dose 3 ML; Start 11/11/18 at 20:00 Guaifenesin/ Dextromethorphan (Mucinex Dm) 1 tab BID PO Last administered on 11/14/18 08:46; Admin Dose 1 TAB; Start 11/11/18 at 21:00 Estradiol (Estrace) 1 mg DAILY PO Last administered on 11/14/18 08:46; Admin Dose 1 MG; Start 11/12/18 at 09:00 Atorvastatin Calcium (Lipitor) 10 mg HS PO Last administered on 11/13/18 20:09; Admin Dose 10 MG; Start 11/11/18 at 21:00 Gabapentin (Neurontin) 300 mg BID PO Last administered on 11/14/18 08:48; Admin Dose 300 MG; Start 11/11/18 at 21:00 Metformin HCl (Glucophage) 500 mg BID WITH MEALS PO Last administered on 11/14/18 08:46; Admin Dose 500 MG; Start 11/11/18 at 18:05 Sertraline HCl (Zoloft) 100 mg DAILY PO Last administered on 11/14/18 08:46; Admin Dose 100 MG; Start 11/12/18 at 09:00 Losartan Potassium (Cozaar) 100 mg DAILY PO Last administered on 11/13/18 08:38; Admin Dose 100 MG; Start 11/11/18 at 17:30 Miscellaneous Information 1 ea NOTE XX ; Start 11/11/18 at 18:30 Glucose (Glutose) 15 gm Q15M PRN PO DECREASED GLUCOSE; Start 11/11/18 at 18:30 Glucose (Glutose) 22.5 gm Q15M PRN PO DECREASED GLUCOSE; Start 11/11/18 at 18:30 Dextrose (D50w Syringe) 25 ml Q15M PRN IV DECREASED GLUCOSE; Start 11/11/18 at 18:30 Dextrose (D50w Syringe) 50 ml Q15M PRN IV DECREASED GLUCOSE; Start 11/11/18 at 18:30 Glucagon (Glucagen) 1 mg Q15M PRN IM DECREASED GLUCOSE; Start 11/11/18 at 18:30 Glucose (Glutose) 15 gm Q15M PRN BUCCAL DECREASED GLUCOSE; Start 11/11/18 at 18:30 Diagnostic Test (Pha) (Accu-Chek) 1 ea 02 XX ; Start 11/13/18 at 02:00 Insulin Glargine (Lantus) 15 units DAILY@2000 SC Last administered on 11/13/18at 20:23; Admin Dose 15 UNITS; Start 11/12/18 at 20:00 Enoxaparin Sodium (Lovenox) 40 mg DAILY SC Last administered on 11/12/18 09:09; Admin Dose 40 MG; Start 11/12/18 at 09:00 Lactobacillus Acidophilus (Florajen3 Capsule) 1 each BID PO Last administered on 11/14/18 08:46; Admin Dose 1 EACH; Start 11/12/18 at 09:00 Promethazine HCl/ Codeine (Phenergan/ Codeine) 5 ml Q6 PRN PO COUGH Last administered on 11/14/18 08:51; Admin Dose 5 ML; Start 11/12/18 at 17:30 Diphenhydramine HCl (Benadryl) 50 mg QID PRN PO ITCHING Last administered on 11/13/18 19:27; Admin Dose 50 MG; Start 11/13/18 at 07:00 Doxycycline Hyclate (Vibramycin) 100 mg BID PO Last administered on 11/14/18 08:46; Admin Dose 100 MG; Start 11/13/18 at 09:00 Meropenem/Sodium Chloride 50 ml @ 100 mls/hr Q8 IVPB Last administered on 11/14/18 05:43; Admin Dose 100 MLS/HR; Start 11/13/18 at 14:00 Insulin Aspart (Novolog Insulin Pen) NOVOLOG *MODERATE* ALGORITHM AC MEALS SC Last administered on 11/13/18at 13:01; Admin Dose 2 UNIT; Start 11/13/18 at 09:00 Fluconazole (Diflucan) 100 mg DAILY PO Last administered on 11/14/18at 08:48; Admin Dose 100 MG; Start 11/14/18 at 09:00 ANDREW WILKES MD Nov 14, 2018 09:15
--- NOTE | 2018-11-14 10:22 | PN ---
Date/Time of Note Date/Time of Note DATE: 11/14/18 TIME: 10:18 Assessment/Plan VTE Prophylaxis Risk score (from Ns)>0 risk: 3 SCD applied (from Ns): Yes Pharmacological prophylaxis: LMWH Lines/Catheters IV Catheter Type (from [facility]): Peripheral IV Assessment/Plan Hospital Course 1. Pneumonia with loculated effusion LLL, she is scheduled for a left chest pigtail catheter insertion today. 2. AODM, sugar control has improved, will change insulin to ac tid 3. Rash prob sec to zosyn, abx modified by ID , rash is better 4. Mouth and tongue are sore, ? yeast- will culture, ID yesrterday thought not present 5. Pericardial effusion noted on ct, will obtain echocardiogram. 6. PT ordered Result Diagram: 11/14/18 0455 11/14/18 0455 Results 24hrs Laboratory Tests Test 11/13/18 12:38 11/13/18 17:38 11/13/18 20:21 11/13/18 21:14 Bedside Glucose 158 138 161 Vancomycin Level < 5.0 L Trough Test 11/14/18 04:55 11/14/18 08:16 White Blood Count 11.7 H Red Blood Count 3.35 L Hemoglobin 9.7 L Hematocrit 29.4 L Mean Corpuscular 87.8 Volume Mean Corpuscular 29.0 Hemoglobin Mean Corpuscular 33.0 Hemoglobin Concent Red Cell 14.2 Distribution Width Platelet Count 308 Mean Platelet Volume 10.3 Immature 1.500 H Granulocytes % Neutrophils % 76.2 Lymphocytes % 15.6 Monocytes % 5.2 Eosinophils % 1.4 Basophils % 0.1 Nucleated Red Blood 0.0 Cells % Immature 0.170 H Granulocytes # Neutrophils # 8.9 H Lymphocytes # 1.8 Monocytes # 0.6 Eosinophils # 0.2 Basophils # 0.0 Nucleated Red Blood 0.0 Cells # Sodium Level 139 Potassium Level 3.6 Chloride Level 109 Carbon Dioxide Level 22 Anion Gap 8 Blood Urea Nitrogen 8 Creatinine 0.57 Est Glomerular > 60 Filtrat Rate mL/min Glucose Level 132 Calcium Level 8.6 Phosphorus Level 3.2 Magnesium Level 1.7 Procalcitonin 0.11 H Bedside Glucose 109 Subjective 24 Hr Interval Summary Free Text/Dictation Elvira is awake and alert. She says that she is feeling better. She still has a slight cough. She is scheduled for an insertion of a pigtail catheter to be inserted in the left lung to drain a loculated effusion. Constitutional: no complaints, improved Respiratory: cough Cardiovascular: no complaints Gastrointestinal: no complaints Genitourinary: no complaints Musculoskeletal: no complaints Exam/Review of Systems Exam Vitals Vital Signs Date Temp Pulse Resp B/P (MAP) Pulse Ox O2 O2 Flow FiO2 Time Delivery Rate 11/14/18 82 18 95 21 09:07 11/14/18 98.6 111/74 Room Air 07:46 (86) Intake and Output 11/13/18 11/13/18 11/14/18 1515:00 23:00 07:00 IntakeIntake Total 600 ml 490 ml 1100 ml BalanceBalance 600 ml 490 ml 1100 ml Constitutional: alert, oriented Respiratory: congested cough, diminished breath sounds Cardiovascular: regular rate and rhythm Musculoskeletal: nl extremities to inspection Results Results 24hrs Laboratory Tests Test 11/13/18 12:38 11/13/18 17:38 11/13/18 20:21 11/13/18 21:14 Bedside Glucose 158 138 161 Vancomycin Level < 5.0 L Trough Test 11/14/18 04:55 11/14/18 08:16 White Blood Count 11.7 H Red Blood Count 3.35 L Hemoglobin 9.7 L Hematocrit 29.4 L Mean Corpuscular 87.8 Volume Mean Corpuscular 29.0 Hemoglobin Mean Corpuscular 33.0 Hemoglobin Concent Red Cell 14.2 Distribution Width Platelet Count 308 Mean Platelet Volume 10.3 Immature 1.500 H Granulocytes % Neutrophils % 76.2 Lymphocytes % 15.6 Monocytes % 5.2 Eosinophils % 1.4 Basophils % 0.1 Nucleated Red Blood 0.0 Cells % Immature 0.170 H Granulocytes # Neutrophils # 8.9 H Lymphocytes # 1.8 Monocytes # 0.6 Eosinophils # 0.2 Basophils # 0.0 Nucleated Red Blood 0.0 Cells # Sodium Level 139 Potassium Level 3.6 Chloride Level 109 Carbon Dioxide Level 22 Anion Gap 8 Blood Urea Nitrogen 8 Creatinine 0.57 Est Glomerular > 60 Filtrat Rate mL/min Glucose Level 132 Calcium Level 8.6 Phosphorus Level 3.2 Magnesium Level 1.7 Procalcitonin 0.11 H Bedside Glucose 109 Medications Medication Current Medications Sodium Chloride 1,000 ml @ 50 mls/hr Q20H IV Last administered on 11/14/18 02:26; Admin Dose 50 MLS/HR; Start 11/11/18 at 17:05 IV Flush (NS 3 ml) 3 ml PER PROTOCOL IV ; Start 11/11/18 at 17:30 Ondansetron HCl (Zofran Inj) 4 mg Q6H PRN IV NAUSEA/VOMITING; Start 11/11/18 at 17:30 Acetaminophen (Tylenol Tab) 650 mg Q6H PRN PO .PAIN 1-3 OR TEMP; Start 11/11/18 at 17:30 Acetaminophen/ Hydrocodone Bitart ([place] (5/325)) 1 tab Q6H PRN PO .MOD PAIN 4- 6 Last administered on 11/12/18 19:02; Admin Dose 1 TAB; Start 11/11/18 at 17:30 Zolpidem Tartrate (Ambien) 5 mg QHS PRN PO .INSOMNIA; Start 11/11/18 at 17:30 Pantoprazole (Protonix Tab) 40 mg DAILY@06 PO Last administered on 11/14/18 05:43; Admin Dose 40 MG; Start 11/12/18 at 06:00 Albuterol/ Ipratropium (Duoneb) 3 ml Q6HWA RESP THERAPY HHN Last administered on 11/14/18 09:06; Admin Dose 3 ML; Start 11/11/18 at 20:00 Guaifenesin/ Dextromethorphan (Mucinex Dm) 1 tab BID PO Last administered on 11/14/18 08:46; Admin Dose 1 TAB; Start 11/11/18 at 21:00 Estradiol (Estrace) 1 mg DAILY PO Last administered on 11/14/18 08:46; Admin Dose 1 MG; Start 11/12/18 at 09:00 Atorvastatin Calcium (Lipitor) 10 mg HS PO Last administered on 11/13/18 20:09; Admin Dose 10 MG; Start 11/11/18 at 21:00 Gabapentin (Neurontin) 300 mg BID PO Last administered on 11/14/18 08:48; Admin Dose 300 MG; Start 11/11/18 at 21:00 Metformin HCl (Glucophage) 500 mg BID WITH MEALS PO Last administered on 11/14/18 08:46; Admin Dose 500 MG; Start 11/11/18 at 18:05 Sertraline HCl (Zoloft) 100 mg DAILY PO Last administered on 11/14/18 08:46; Admin Dose 100 MG; Start 11/12/18 at 09:00 Losartan Potassium (Cozaar) 100 mg DAILY PO Last administered on 11/13/18 08:38; Admin Dose 100 MG; Start 11/11/18 at 17:30 Miscellaneous Information 1 ea NOTE XX ; Start 11/11/18 at 18:30 Glucose (Glutose) 15 gm Q15M PRN PO DECREASED GLUCOSE; Start 11/11/18 at 18:30 Glucose (Glutose) 22.5 gm Q15M PRN PO DECREASED GLUCOSE; Start 11/11/18 at 18:30 Dextrose (D50w Syringe) 25 ml Q15M PRN IV DECREASED GLUCOSE; Start 11/11/18 at 18:30 Dextrose (D50w Syringe) 50 ml Q15M PRN IV DECREASED GLUCOSE; Start 11/11/18 at 18:30 Glucagon (Glucagen) 1 mg Q15M PRN IM DECREASED GLUCOSE; Start 11/11/18 at 18:30 Glucose (Glutose) 15 gm Q15M PRN BUCCAL DECREASED GLUCOSE; Start 11/11/18 at 18:30 Diagnostic Test (Pha) (Accu-Chek) 1 ea 02 XX ; Start 11/13/18 at 02:00 Insulin Glargine (Lantus) 15 units DAILY@2000 SC Last administered on 11/13/18 20:23; Admin Dose 15 UNITS; Start 11/12/18 at 20:00 Enoxaparin Sodium (Lovenox) 40 mg DAILY SC Last administered on 11/12/18 09:09; Admin Dose 40 MG; Start 11/12/18 at 09:00 Lactobacillus Acidophilus (Florajen3 Capsule) 1 each BID PO Last administered on 11/14/18 08:46; Admin Dose 1 EACH; Start 11/12/18 at 09:00 Promethazine HCl/ Codeine (Phenergan/ Codeine) 5 ml Q6 PRN PO COUGH Last a dministered on 11/14/18 08:51; Admin Dose 5 ML; Start 11/12/18 at 17:30 Diphenhydramine HCl (Benadryl) 50 mg QID PRN PO ITCHING Last administered on 11/13/18 19:27; Admin Dose 50 MG; Start 11/13/18 at 07:00 Doxycycline Hyclate (Vibramycin) 100 mg BID PO Last administered on 11/14/18at 08:46; Admin Dose 100 MG; Start 11/13/18 at 09:00 Meropenem/Sodium Chloride 50 ml @ 100 mls/hr Q8 IVPB Last administered on 11/14/18at 05:43; Admin Dose 100 MLS/HR; Start 11/13/18 at 14:00 Insulin Aspart (Novolog Insulin Pen) NOVOLOG *MODERATE* ALGORITHM AC MEALS SC Last administered on 11/13/18at 13:01; Admin Dose 2 UNIT; Start 11/13/18 at 09:00 Fluconazole (Diflucan) 100 mg DAILY PO Last administered on 11/14/18at 08:48; Admin Dose 100 MG; Start 11/14/18 at 09:00 TRAE TAYLOR MD Nov 14, 2018 10:22
[2018-11-14] MEDS ORDERED: DEXTROSE 5%-0.45% NACL 1,000 ML IV SCH (12:00)
--- NOTE | 2018-11-14 14:49 | CONS ---
Consult Date/Type/Reason Admit Date/Time Nov 11, 2018 at 16:26 Initial Consult Date 11/12/18 Type of Consult Pulmonary Date/Time of Note DATE: 11/14/18 TIME: 14:48 Subjective Patient remains relatively comfortable pending CT-guided pigtail catheter placement with TPA. Objective Vital Signs Date Temp Pulse Resp B/P (MAP) Pulse Ox O2 O2 Flow FiO2 Time Delivery Rate 11/14/18 82 18 95 21 09:07 11/14/18 98.6 111/74 Room Air 07:46 (86) Intake and Output 11/13/18 11/13/18 11/14/18 1515:00 23:00 07:00 IntakeIntake Total 600 ml 490 ml 1100 ml BalanceBalance 600 ml 490 ml 1100 ml Exam VITAL SIGNS: per chart NECK: Supple. No JVD or lymphadenopathy. CARDIAC EXAM: S1, S2. No added sounds or murmurs. CHEST: Diminished air entry left lung ABDOMEN: Soft, nontender. No guarding or rebound. EXTREMITIES: No cyanosis, clubbing or edema. NEUROLOGIC: Generalized weakness. No focal deficits. Vent Setting Fraction of Inspired Oxygen pe: 21 Results/Medications Result Diagram: 11/14/18 0455 11/14/18 0455 Results 24 hrs Laboratory Tests Test 11/13/18 17:38 11/13/18 20:21 11/13/18 21:14 11/14/18 04:55 Bedside Glucose 138 161 Vancomycin Level < 5.0 L Trough White Blood Count 11.7 H Red Blood Count 3.35 L Hemoglobin 9.7 L Hematocrit 29.4 L Mean Corpuscular 87.8 Volume Mean Corpuscular 29.0 Hemoglobin Mean Corpuscular 33.0 Hemoglobin Concent Red Cell 14.2 Distribution Width Platelet Count 308 Mean Platelet Volume 10.3 Immature 1.500 H Granulocytes % Neutrophils % 76.2 Lymphocytes % 15.6 Monocytes % 5.2 Eosinophils % 1.4 Basophils % 0.1 Nucleated Red Blood 0.0 Cells % Immature 0.170 H Granulocytes # Neutrophils # 8.9 H Lymphocytes # 1.8 Monocytes # 0.6 Eosinophils # 0.2 Basophils # 0.0 Nucleated Red Blood 0.0 Cells # Sodium Level 139 Potassium Level 3.6 Chloride Level 109 Carbon Dioxide Level 22 Anion Gap 8 Blood Urea Nitrogen 8 Creatinine 0.57 Est Glomerular > 60 Filtrat Rate mL/min Glucose Level 132 Calcium Level 8.6 Phosphorus Level 3.2 Magnesium Level 1.7 Procalcitonin 0.11 H Test 11/14/18 08:16 11/14/18 12:52 Bedside Glucose 109 118 Medications Current Medications IV Flush (NS 3 ml) 3 ml PER PROTOCOL IV ; Start 11/11/18 at 17:30 Ondansetron HCl (Zofran Inj) 4 mg Q6H PRN IV NAUSEA/VOMITING; Start 11/11/18 at 17:30 Acetaminophen (Tylenol Tab) 650 mg Q6H PRN PO .PAIN 1-3 OR TEMP; Start 11/11/18 at 17:30 Acetaminophen/ Hydrocodone Bitart ([place] (5/325)) 1 tab Q6H PRN PO .MOD PAIN 4- 6 Last administered on 11/12/18 19:02; Admin Dose 1 TAB; Start 11/11/18 at 17:30 Zolpidem Tartrate (Ambien) 5 mg QHS PRN PO .INSOMNIA; Start 11/11/18 at 17:30 Pantoprazole (Protonix Tab) 40 mg DAILY@06 PO Last administered on 11/14/18 05:43; Admin Dose 40 MG; Start 11/12/18 at 06:00 Albuterol/ Ipratropium (Duoneb) 3 ml Q6HWA RESP THERAPY HHN Last administered on 11/14/18 09:06; Admin Dose 3 ML; Start 11/11/18 at 20:00 Guaifenesin/ Dextromethorphan (Mucinex Dm) 1 tab BID PO Last administered on 11/14/18 08:46; Admin Dose 1 TAB; Start 11/11/18 at 21:00 Estradiol (Estrace) 1 mg DAILY PO Last administered on 11/14/18 08:46; Admin D ose 1 MG; Start 11/12/18 at 09:00 Atorvastatin Calcium (Lipitor) 10 mg HS PO Last administered on 11/13/18 20:09; Admin Dose 10 MG; Start 11/11/18 at 21:00 Gabapentin (Neurontin) 300 mg BID PO Last administered on 11/14/18 08:48; Admin Dose 300 MG; Start 11/11/18 at 21:00 Metformin HCl (Glucophage) 500 mg BID WITH MEALS PO Last administered on 11/14/18 08:46; Admin Dose 500 MG; Start 11/11/18 at 18:05 Sertraline HCl (Zoloft) 100 mg DAILY PO Last administered on 11/14/18 08:46; Admin Dose 100 MG; Start 11/12/18 at 09:00 Losartan Potassium (Cozaar) 100 mg DAILY PO Last administered on 11/13/18 08:38; Admin Dose 100 MG; Start 11/11/18 at 17:30 Miscellaneous Information 1 ea NOTE XX ; Start 11/11/18 at 18:30 Glucose (Glutose) 15 gm Q15M PRN PO DECREASED GLUCOSE; Start 11/11/18 at 18:30 Glucose (Glutose) 22.5 gm Q15M PRN PO DECREASED GLUCOSE; Start 11/11/18 at 18:30 Dextrose (D50w Syringe) 25 ml Q15M PRN IV DECREASED GLUCOSE; Start 11/11/18 at 18:30 Dextrose (D50w Syringe) 50 ml Q15M PRN IV DECREASED GLUCOSE; Start 11/11/18 at 18:30 Glucagon (Glucagen) 1 mg Q15M PRN IM DECREASED GLUCOSE; Start 11/11/18 at 18:30 Glucose (Glutose) 15 gm Q15M PRN BUCCAL DECREASED GLUCOSE; Start 11/11/18 at 18:30 Diagnostic Test (Pha) (Accu-Chek) 1 ea 02 XX ; Start 11/13/18 at 02:00 Insulin Glargine (Lantus) 15 units DAILY@2000 SC Last administered on 11/13/18at 20:23; Admin Dose 15 UNITS; Start 11/12/18 at 20:00 Enoxaparin Sodium (Lovenox) 40 mg DAILY SC Last administered on 11/12/18at 09:09; Admin Dose 40 MG; Start 11/12/18 at 09:00 Lactobacillus Acidophilus (Florajen3 Capsule) 1 each BID PO Last administered on 11/14/18 08:46; Admin Dose 1 EACH; Start 11/12/18 at 09:00 Promethazine HCl/ Codeine (Phenergan/ Codeine) 5 ml Q6 PRN PO COUGH Last administered on 11/14/18 08:51; Admin Dose 5 ML; Start 11/12/18 at 17:30 Diphenhydramine HCl (Benadryl) 50 mg QID PRN PO ITCHING Last administered on 11/13/18 19:27; Admin Dose 50 MG; Start 11/13/18 at 07:00 Doxycycline Hyclate (Vibramycin) 100 mg BID PO Last administered on 11/14/18 08:46; Admin Dose 100 MG; Start 11/13/18 at 09:00 Meropenem/Sodium Chloride 50 ml @ 100 mls/hr Q8 IVPB Last administered on 11/14/18 13:12; Admin Dose 100 MLS/HR; Start 11/13/18 at 14:00 Insulin Aspart (Novolog Insulin Pen) NOVOLOG *MODERATE* ALGORITHM AC MEALS SC Last administered on 11/13/18 13:01; Admin Dose 2 UNIT; Start 11/13/18 at 09:00 Fluconazole (Diflucan) 100 mg DAILY PO Last administered on 11/14/18 08:48; Admin Dose 100 MG; Start 11/14/18 at 09:00 Dextrose/Sodium Chloride 1,000 ml @ 50 mls/hr Q20H IV Last administered on 11/14/18 13:12; Admin Dose 50 MLS/HR; Start 11/14/18 at 12:00 Assessment/Plan Hospital Course (Demo Recall) Assessment, plan 1. Community-acquired pneumonia likely loculated left pleural effusion 2. Appreciate thoracic surgery evaluation pending left pigtail catheter placement with TPA. 3. Continue antibiotics and repeat imaging if not improving will perform bronchoscopy LEX[facility] PATRICIA MD, [facility] Nov 14, 2018 14:49
[2018-11-14] MEDS ORDERED: FENTAnyl 50 MCG/ML VIAL ONE (14:51)
[2018-11-14] MEDS ORDERED: ALTEPLASE (CATHFLO) 2 MG INJ CATHETER ONE ×2 (15:30)
[2018-11-14] MEDS: HYDROCODONE/APAP (5/325) TAB PO PRN ×2 (16:21→21:50)
[2018-11-14 16:24] VITALS: BP 137/62; PULSE 89; RESP 18
[2018-11-14 19:51] VITALS: BP 124/58; PULSE 80; RESP 20
[2018-11-14] MEDS: ATORVASTATIN 10 MG TAB PO SCH (20:06)
[2018-11-14] MEDS: INSULIN GLARGINE [LANTus] (100 UNITS/ML) SYG SC SCH (21:53)
[2018-11-15 01:20] VITALS: BP 121/58; PULSE 90; RESP 18
[2018-11-15] MEDS: ACCU-CHEK XX SCH (02:00)
[2018-11-15] MEDS: MEROPENEM 1 GM/50ML(PMX) 50 ML IVPB SCH ×3 (07:02→21:30)
[2018-11-15] MEDS: PANTOPRAZOLE (EC) 40 MG TAB PO SCH (07:02)
--- NOTE | 2018-11-15 07:15 | CONS ---
Assessment/Plan Assessment/Plan Hospital Course (Demo Recall) 1) pneumonia with complex L pleural effusion start vanco/zosyn pt will need thorancentesis and possible VATS with decortication check procalcitonin sputum cx if possible nasal swab for MRSA 11/13 - CT shows large amount of atelectasis but also loculated pleural effusion pt likely to need VATS with bronchoscopy due to allergic reaction will change antibiotics to doxy/merrem 11/14 - pt doing ok on doxy/merrem pt to get pigtail cath with probable tPA infusion into it I have placed orders for pleural fluid analysis follow up on repeat CXR to see if bronch may be necessary sputum cx has yeast 11/15 - WBC in pleural fluid is moderately elevated only but mostly PMN's and low glucose pleural cx is NGTD continue with merrem/doxy at present to get CXR this a.m. 2) SLE not currently active only on neurontin 3) DM 4) allergic drug reaction pt states she never had IV antibiotics before but possible penicillin type drug in past since this allergic reaction happened so quickly it suggests she may have seen the class of drug before which make me suspect zosyn is the cause d/c vanco/zosyn increase benadryl to 50mg QID PRN start doxy/merrem likely the rash will progress over the next several days 11/14 - rash is actually better continue with doxy/merrem 5) probable thrush start diflucan 11/15 - thrush is better but still has tongue tip soreness Consultation Date/Type/Reason Admit Date/Time Nov 11, 2018 at 16:26 Initial Consult Date 11/12/18 Type of Consult ID Date/Time of Note DATE: 11/15/18 TIME: 07:11 24 HR Interval Summary Free Text/Dictation pt had coughing jag while getting procedure yesterday she vomited after the procedure, not currently nauseated pain to L side is better no D Exam/Review of Systems Exam Vitals Vital Signs Date Temp Pulse Resp B/P (MAP) Pulse Ox O2 O2 Flow FiO2 Time Delivery Rate 11/15/18 99.3 90 18 121/58 91 01:20 (79) 11/14/18 21 21:47 11/14/18 Room Air 19:51 Intake and Output 11/14/18 11/14/18 11/15/18 1515:00 23:00 07:00 IntakeIntake Total 600 ml 650 ml 480 ml OutputOutput Total 280 ml BalanceBalance 600 ml 650 ml 200 ml Constitutional: alert, oriented Eyes: nl sclera ENMT: mucosa pink and moist Respiratory: other (decreased BS at L base) Cardiovascular: regular rate and rhythm Gastrointestinal: soft, non-tender Results Result Diagram: 11/14/18 0455 11/14/18 0455 Results 24hrs Laboratory Tests Test 11/14/18 08:16 11/14/18 12:52 11/14/18 15:15 11/14/18 17:54 Bedside Glucose 109 118 173 Body Fluid Type PLEURAL Body Fluid Volume 2.0 Body Fluid Color YELLOW Body Fluid HAZY Appearance Body Fluid WBC 8219 Body Fluid RBC 37569 (Auto) Body Fluid 94.8 Polynuclear WBCs (%) Body Fluid 5.2 Mononuclear Cells % Auto Body Fluid Glucose < 20 Body Fluid Total 5.2 Protein Body Fluid Amylase 34 Test 11/14/18 21:52 Bedside Glucose 165 Medications Medication Current Medications IV Flush (NS 3 ml) 3 ml PER PROTOCOL IV Last administered on 11/14/18at 20:06; Admin Dose 3 ML; Start 11/11/18 at 17:30 Ondansetron HCl (Zofran Inj) 4 mg Q6H PRN IV NAUSEA/VOMITING; Start 11/11/18 at 17:30 Acetaminophen (Tylenol Tab) 650 mg Q6H PRN PO .PAIN 1-3 OR TEMP; Start 11/11/18 at 17:30 Acetaminophen/ Hydrocodone Bitart ([place] (5/325)) 1 tab Q6H PRN PO .MOD PAIN 4- 6 Last administered on 11/14/18at 21:50; Admin Dose 1 TAB; Start 11/11/18 at 17:30 Zolpidem Tartrate (Ambien) 5 mg QHS PRN PO .INSOMNIA; Start 11/11/18 at 17:30 Pantoprazole (Protonix Tab) 40 mg DAILY@06 PO Last administered on 11/15/18at 07:02; Admin Dose 40 MG; Start 11/12/18 at 06:00 Albuterol/ Ipratropium (Duoneb) 3 ml Q6HWA RESP THERAPY HHN Last administered on 11/14/18at 21:46; Admin Dose 3 ML; Start 11/11/18 at 20:00 Guaifenesin/ Dextromethorphan (Mucinex Dm) 1 tab BID PO Last administered on 11/14/18 20:06; Admin Dose 1 TAB; Start 11/11/18 at 21:00 Estradiol (Estrace) 1 mg DAILY PO Last administered on 11/14/18 08:46; Admin Dose 1 MG; Start 11/12/18 at 09:00 Atorvastatin Calcium (Lipitor) 10 mg HS PO Last administered on 11/14/18 20:06; Admin Dose 10 MG; Start 11/11/18 at 21:00 Gabapentin (Neurontin) 300 mg BID PO Last administered on 11/14/18 20:06; Admin Dose 300 MG; Start 11/11/18 at 21:00 Metformin HCl (Glucophage) 500 mg BID WITH MEALS PO Last administered on 18:01; Admin Dose 500 MG; Start 11/11/18 at 18:05 Sertraline HCl (Zoloft) 100 mg DAILY PO Last administered on 11/14/18 08:46; Admin Dose 100 MG; Start 11/12/18 at 09:00 Losartan Potassium (Cozaar) 100 mg DAILY PO Last administered on 11/13/18 08:38; Admin Dose 100 MG; Start 11/11/18 at 17:30 Miscellaneous Information 1 ea NOTE XX ; Start 11/11/18 at 18:30 Glucose (Glutose) 15 gm Q15M PRN PO DECREASED GLUCOSE; Start 11/11/18 at 18:30 Glucose (Glutose) 22.5 gm Q15M PRN PO DECREASED GLUCOSE; Start 11/11/18 at 18:30 Dextrose (D50w Syringe) 25 ml Q15M PRN IV DECREASED GLUCOSE; Start 11/11/18 at 18:30 Dextrose (D50w Syringe) 50 ml Q15M PRN IV DECREASED GLUCOSE; Start 11/11/18 at 18:30 Glucagon (Glucagen) 1 mg Q15M PRN IM DECREASED GLUCOSE; Start 11/11/18 at 18:30 Glucose (Glutose) 15 gm Q15M PRN BUCCAL DECREASED GLUCOSE; Start 11/11/18 at 18:30 Diagnostic Test (Pha) (Accu-Chek) 1 ea 02 XX ; Start 11/13/18 at 02:00 Insulin Glargine (Lantus) 15 units DAILY@2000 SC Last administered on 11/14/18 21:53; Admin Dose 15 UNITS; Start 11/12/18 at 20:00 Enoxaparin Sodium (Lovenox) 40 mg DAILY SC Last administered on 11/12/18 09:09; Admin Dose 40 MG; Start 11/12/18 at 09:00 Lactobacillus Acidophilus (Florajen3 Capsule) 1 each BID PO Last administered on 11/14/18 20:06; Admin Dose 1 EACH; Start 11/12/18 at 09:00 Promethazine HCl/ Codeine (Phenergan/ Codeine) 5 ml Q6 PRN PO COUGH Last administered on 11/14/18 08:51; Admin Dose 5 ML; Start 11/12/18 at 17:30 Diphenhydramine HCl (Benadryl) 50 mg QID PRN PO ITCHING Last administered on 11/13/18 19:27; Admin Dose 50 MG; Start 11/13/18 at 07:00 Doxycycline Hyclate (Vibramycin) 100 mg BID PO Last administered on 11/14/18 20:06; Admin Dose 100 MG; Start 11/13/18 at 09:00 Meropenem/Sodium Chloride 50 ml @ 100 mls/hr Q8 IVPB Last administered on 11/15/18 07:02; Admin Dose 100 MLS/HR; Start 11/13/18 at 14:00 Insulin Aspart (Novolog Insulin Pen) NOVOLOG *MODERATE* ALGORITHM AC MEALS SC Last administered on 11/14/18 18:00; Admin Dose 2 UNIT; Start 11/13/18 at 09:00 Fluconazole (Diflucan) 100 mg DAILY PO Last administered on 11/14/18 08:48; Admin Dose 100 MG; Start 11/14/18 at 09:00 THONY MCDUFFIE MD Nov 15, 2018 07:15
[2018-11-15] MEDS: INSULIN ASPART [NOVOLOG] 3 ML PEN SC SCH ×3 (07:20→17:25)
[2018-11-15 07:45] VITALS: BP 140/67; PULSE 80; RESP 18
[2018-11-15] MEDS: ALBUTEROL/IPRATROPIUM (NEB) 3 ML AMP HHN SCH ×3 (08:10→20:30)
--- NOTE | 2018-11-15 08:10 | PN ---
Date/Time of Note Date/Time of Note DATE: 11/15/18 TIME: 08:08 Assessment/Plan Lines/Catheters IV Catheter Type (from Nrs): Saline Lock [place] in Place (from Nrs): No Assessment/Plan Chief Complaint/Hosp Course left locuated pleural effusion continue drainage check cxr may need tpa Subjective 24 Hr Interval Summary Constitutional: cough Pain Control: moderate Exam/Review of Systems Vital Signs Vitals Vital Signs Date Temp Pulse Resp B/P (MAP) Pulse Ox O2 O2 Flow FiO2 Time Delivery Rate 11/15/18 98.4 80 18 140/67 95 07:45 (91) 11/14/18 21 21:47 11/14/18 Room Air 19:51 Intake and Output 11/14/18 11/14/18 11/15/18 1414:59 22:59 06:59 IntakeIntake Total 600 ml 650 ml 480 ml OutputOutput Total 280 ml BalanceBalance 600 ml 650 ml 200 ml Exam Constitutional: oriented Psych: nl mood/affect Head: normocephalic ENMT: nl lips & teeth Neck: supple Respiratory: diminished breath sounds (left pigtail drainnage 280 cc /24), other Musculoskeletal: nl gait and stance Extremities: normal pulses Results Result Diagram: 11/14/18 0455 11/14/18 0455 ANDREW WILKES MD Nov 15, 2018 08:10
[2018-11-15] MEDS: L ACIDOPHIL/B LACTIS/B LONGUM CAPSULE PO SCH ×2 (08:26→21:00)
[2018-11-15] MEDS: GUAIFENESIN/DM (SR) TAB PO SCH ×2 (08:26→21:00)
[2018-11-15] MEDS: DOXYCYCLINE 100 MG TAB PO SCH ×2 (08:26→21:31)
[2018-11-15] MEDS: metFORMIN 500 MG TAB PO SCH ×2 (08:26→17:53)
[2018-11-15] MEDS: LOSARTAN 50 MG TAB PO SCH (08:27)
[2018-11-15] MEDS: ESTRADIOL 1 MG TAB PO SCH (08:27)
[2018-11-15] MEDS: GABAPENTIN 300 MG CAP PO SCH ×2 (08:27→21:32)
[2018-11-15] MEDS: FLUCONAZOLE 100 MG TAB PO SCH (08:27)
[2018-11-15] MEDS: SERTRALINE 100 MG TAB PO SCH (08:27)
[2018-11-15] MEDS: ENOXAPARIN 40 MG/0.4 ML SYG SC SCH (08:29)
--- NOTE | 2018-11-15 08:51 | CONS ---
Assessment/Plan Assessment/Plan Assessment/Plan (Daily) * complicated PNA with loculated effusion: s/p pig tail catheter. on abx and appears clinically better * drug reaction: likley to zosyn. resolving and tolerating current abx. no rash or itching * sle: in remission * anemia: monitor cbc * thrush: on fluconazole * dm: on meds * htn: on meds Consultation Date/Type/Reason Admit Date/Time Nov 11, 2018 at 16:26 Initial Consult Date 11/12/18 Date/Time of Note DATE: 11/15/18 TIME: 08:49 24 HR Interval Summary Free Text/Dictation s/p pig tail catheter. feels better, less pain. no sob and states cough better. output from the drain much less Exam/Review of Systems Exam Vitals Vital Signs Date Temp Pulse Resp B/P (MAP) Pulse Ox O2 O2 Flow FiO2 Time Delivery Rate 11/15/18 84 18 96 21 08:10 11/15/18 98.4 140/67 07:45 (91) 11/14/18 Room Air 19:51 Intake and Output 11/14/18 11/14/18 11/15/18 1515:00 23:00 07:00 IntakeIntake Total 600 ml 650 ml 480 ml OutputOutput Total 280 ml BalanceBalance 600 ml 650 ml 200 ml Constitutional: alert, oriented Head: normocephalic Respiratory: diminished breath sounds Cardiovascular: regular rate and rhythm, edema Gastrointestinal: soft Results Result Diagram: 11/14/18 0455 11/14/18 0455 Results 24hrs Laboratory Tests Test 11/14/18 12:52 11/14/18 15:15 11/14/18 17:54 11/14/18 21:52 Bedside Glucose 118 173 165 Body Fluid Type PLEURAL Body Fluid Volume 2.0 Body Fluid Color YELLOW Body Fluid HAZY Appearance Body Fluid WBC 8219 Body Fluid RBC 93597 (Auto) Body Fluid 94.8 Polynuclear WBCs (%) Body Fluid 5.2 Mononuclear Cells % Auto Body Fluid Glucose < 20 Body Fluid Total 5.2 Protein Body Fluid Amylase 34 Test 11/15/18 07:59 Bedside Glucose 138 Medications Medication Current Medications IV Flush (NS 3 ml) 3 ml PER PROTOCOL IV Last administered on 11/14/18at 20:06; Admin Dose 3 ML; Start 11/11/18 at 17:30 Ondansetron HCl (Zofran Inj) 4 mg Q6H PRN IV NAUSEA/VOMITING; Start 11/11/18 at 17:30 Acetaminophen (Tylenol Tab) 650 mg Q6H PRN PO .PAIN 1-3 OR TEMP; Start 11/11/18 at 17:30 Acetaminophen/ Hydrocodone Bitart ([place] (5/325)) 1 tab Q6H PRN PO .MOD PAIN 4- 6 Last administered on 11/14/18 21:50; Admin Dose 1 TAB; Start 11/11/18 at 17:30 Zolpidem Tartrate (Ambien) 5 mg QHS PRN PO .INSOMNIA; Start 11/11/18 at 17:30 Pantoprazole (Protonix Tab) 40 mg DAILY@06 PO Last administered on 11/15/18 07:02; Admin Dose 40 MG; Start 11/12/18 at 06:00 Albuterol/ Ipratropium (Duoneb) 3 ml Q6HWA RESP THERAPY HHN Last administered on 11/15/18 08:10; Admin Dose 3 ML; Start 11/11/18 at 20:00 Guaifenesin/ Dextromethorphan (Mucinex Dm) 1 tab BID PO Last administered on 11/15/18 08:26; Admin Dose 1 TAB; Start 11/11/18 at 21:00 Estradiol (Estrace) 1 mg DAILY PO Last administered on 11/15/18 08:27; Admin Dose 1 MG; Start 11/12/18 at 09:00 Atorvastatin Calcium (Lipitor) 10 mg HS PO Last administered on 11/14/18 20:06; Admin Dose 10 MG; Start 11/11/18 at 21:00 Gabapentin (Neurontin) 300 mg BID PO Last administered on 11/15/18 08:27; Admin Dose 300 MG; Start 11/11/18 at 21:00 Metformin HCl (Glucophage) 500 mg BID WITH MEALS PO Last administered on 11/15/18 08:26; Admin Dose 500 MG; Start 11/11/18 at 18:05 Sertraline HCl (Zoloft) 100 mg DAILY PO Last administered on 11/15/18 08:27; Admin Dose 100 MG; Start 11/12/18 at 09:00 Losartan Potassium (Cozaar) 100 mg DAILY PO Last administered on 11/15/18 08:27; Admin Dose 100 MG; Start 11/11/18 at 17:30 Miscellaneous Information 1 ea NOTE XX ; Start 11/11/18 at 18:30 Glucose (Glutose) 15 gm Q15M PRN PO DECREASED GLUCOSE; Start 11/11/18 at 18:30 Glucose (Glutose) 22.5 gm Q15M PRN PO DECREASED GLUCOSE; Start 11/11/18 at 18:30 Dextrose (D50w Syringe) 25 ml Q15M PRN IV DECREASED GLUCOSE; Start 11/11/18 at 18:30 Dextrose (D50w Syringe) 50 ml Q15M PRN IV DECREASED GLUCOSE; Start 11/11/18 at 18:30 Glucagon (Glucagen) 1 mg Q15M PRN IM DECREASED GLUCOSE; Start 11/11/18 at 18:30 Glucose (Glutose) 15 gm Q15M PRN BUCCAL DECREASED GLUCOSE; Start 11/11/18 at 18:30 Diagnostic Test (Pha) (Accu-Chek) 1 ea 02 XX ; Start 11/13/18 at 02:00 Insulin Glargine (Lantus) 15 units DAILY@2000 SC Last administered on 11/14/18at 21:53; Admin Dose 15 UNITS; Start 11/12/18 at 20:00 Enoxaparin Sodium (Lovenox) 40 mg DAILY SC Last administered on 11/15/18 08:29; Admin Dose 40 MG; Start 11/12/18 at 09:00 Lactobacillus Acidophilus (Florajen3 Capsule) 1 each BID PO Last administered on 11/15/18 08:26; Admin Dose 1 EACH; Start 11/12/18 at 09:00 Promethazine HCl/ Codeine (Phenergan/ Codeine) 5 ml Q6 PRN PO COUGH Last administered on 11/14/18 08:51; Admin Dose 5 ML; Start 11/12/18 at 17:30 Diphenhydramine HCl (Benadryl) 50 mg QID PRN PO ITCHING Last administered on 11/13/18 19:27; Admin Dose 50 MG; Start 11/13/18 at 07:00 Doxycycline Hyclate (Vibramycin) 100 mg BID PO Last administered on 11/15/18 08:26; Admin Dose 100 MG; Start 11/13/18 at 09:00 Meropenem/Sodium Chloride 50 ml @ 100 mls/hr Q8 IVPB Last administered on 11/15/18at 07:02; Admin Dose 100 MLS/HR; Start 11/13/18 at 14:00 Insulin Aspart (Novolog Insulin Pen) NOVOLOG *MODERATE* ALGORITHM AC MEALS SC Last administered on 11/14/18 18:00; Admin Dose 2 UNIT; Start 11/13/18 at 09:00 Fluconazole (Diflucan) 100 mg DAILY PO Last administered on 11/15/18 08:27; Admin Dose 100 MG; Start 11/14/18 at 09:00 PHILIP RASHID MD Nov 15, 2018 08:51
[2018-11-15 14:06] VITALS: BP 129/60; RESP 18
--- NOTE | 2018-11-15 15:43 | CONS ---
Consult Date/Type/Reason Admit Date/Time Nov 11, 2018 at 16:26 Initial Consult Date 11/12/18 Type of Consultation: Pulm Date/Time of Note DATE: 11/15/18 TIME: 15:40 Subjective s/p left CT-guide pleural pigtail catheter insertion. Objective Vitals Vital Signs Date Temp Pulse Resp B/P (MAP) Pulse Ox O2 O2 Flow FiO2 Time Delivery Rate 11/15/18 96 18 95 21 14:16 11/15/18 98.7 129/60 14:06 (83) 11/14/18 Room Air 19:51 Intake and Output 11/14/18 11/14/18 11/15/18 1414:59 22:59 06:59 IntakeIntake Total 600 ml 650 ml 480 ml OutputOutput Total 280 ml BalanceBalance 600 ml 650 ml 200 ml Exam HEENT: Neck supple; no JVD; no LAD CVS: RRR, S1 and S2 CHEST: Decreased BS left base ABD: Soft, NT, + BS EXT: No c/c/e Results/Medications Result Diagram: 11/14/18 0455 11/14/18 0455 Results 24 hrs Laboratory Tests Test 11/14/18 17:54 11/14/18 21:52 11/15/18 07:59 11/15/18 12:27 Bedside Glucose 173 165 138 134 Home Meds Active Scripts Prednisone* (Prednisone*) 20 Mg Tab, 60 MG PO DAILY for 5 Days, TAB Prov:CHRIS OVERTON MD 11/04/18 Albuterol Sulfate* (Proair HFA*) 8.5 Gm Hfa.aer.ad, 2 PUFF INH Q6H PRN for WHEEZING AND SOB, #1 INHALER Prov:CHRIS OVERTON MD 11/04/18 Azithromycin* (Zithromax*) 250 Mg Tablet, 250 MG PO .ZPACK DIRECTED, #6 TAB TAKE 500 MG (2 TABS) THE FIRST DAY THEN 250 MG (1 TAB) DAYS 2-5 Prov:CHRIS OVERTON MD 11/04/18 Reported Medications Estradiol* (Estradiol*) 2 Mg Tablet, 1 MG PO DAILY, TAB 11/04/18 Glyburide* (Glyburide*) 5 Mg Tablet, 1 TAB ORAL DAILY 11/04/18 Losartan-Hydrochlorothiazide (Losartan-HCTZ) 100-12.5 Mg Tab, 1 TAB ORAL DAILY 11/04/18 Sertraline Hcl* (Sertraline Hcl*) 100 Mg Tablet, 1 TAB ORAL QHS 11/04/18 Atorvastatin (Atorvastatin) 10 Mg Tablet, 1 TAB ORAL QHS 11/04/18 Levothyroxine Sodium* (Levothyroxine Sodium*) 25 Mcg Tablet, 1 TAB ORAL QAM 11/04/18 Metformin* (Glucophage*) 500 Mg Tab, 500 MG PO WITH BREAKFAST DINNE, #30 TAB 11/04/18 Hydrocodone/Acetaminophen (Hydrocodone-Acetamin 10-325 mg) 1 Each Tablet, 1 TAB ORAL Q6 PRN for PAIN LEVEL 1-5 11/04/18 Beclomethasone Dipropionate (Qvar Redihaler (80 MCG)) 10.6 Gm Hfa.aeroba, 1 PUFF IH BID, INH 11/04/18 Acetaminophen* (Tylenol*) 325 Mg Tablet, 325 MG PO Q4H PRN for PAIN AND OR ELEVATED TEMP, TAB 11/04/18 Carisoprodol* (Soma*) 350 Mg Tablet, 350 MG PO Q8H PRN for MUSCLE SPASMS, TAB 11/04/18 Diphenhydramine Hcl* (Diphenhydramine Hcl*) 25 Mg Capsule, 25 MG PO Q6 PRN for ITCHING, CAP 11/04/18 Esomeprazole Magnesium (Nexium 24Hr) 20 Mg Capsule.dr, 20 MG PO DAILY 11/04/18 Fluticasone Propionate* (Flovent* HFA 220) 12 Gm Inha, 1 PUFF INHALATION BID, #1 INHALER 11/04/18 Medications Current Medications IV Flush (NS 3 ml) 3 ml PER PROTOCOL IV Last administered on 11/14/18at 20:06; Admin Dose 3 ML; Start 11/11/18 at 17:30 Ondansetron HCl (Zofran Inj) 4 mg Q6H PRN IV NAUSEA/VOMITING; Start 11/11/18 at 17:30 Acetaminophen (Tylenol Tab) 650 mg Q6H PRN PO .PAIN 1-3 OR TEMP; Start 11/11/18 at 17:30 Acetaminophen/ Hydrocodone Bitart ([place] (5/325)) 1 tab Q6H PRN PO .MOD PAIN 4- 6 Last administered on 11/14/18 21:50; Admin Dose 1 TAB; Start 11/11/18 at 17:30 Zolpidem Tartrate (Ambien) 5 mg QHS PRN PO .INSOMNIA; Start 11/11/18 at 17:30 Pantoprazole (Protonix Tab) 40 mg DAILY@06 PO Last administered on 11/15/18 07:02; Admin Dose 40 MG; Start 11/12/18 at 06:00 Albuterol/ Ipratropium (Duoneb) 3 ml Q6HWA RESP THERAPY HHN Last administered on 11/15/18 14:19; Admin Dose 3 ML; Start 11/11/18 at 20:00 Guaifenesin/ Dextromethorphan (Mucinex Dm) 1 tab BID PO Last administered on 11/15/18 08:26; Admin Dose 1 TAB; Start 11/11/18 at 21:00 Estradiol (Estrace) 1 mg DAILY PO Last administered on 11/15/18 08:27; Admin Dose 1 MG; Start 11/12/18 at 09:00 Atorvastatin Calcium (Lipitor) 10 mg HS PO Last administered on 11/14/18 20:06; Admin Dose 10 MG; Start 11/11/18 at 21:00 Gabapentin (Neurontin) 300 mg BID PO Last administered on 11/15/18 08:27; Admin Dose 300 MG; Start 11/11/18 at 21:00 Metformin HCl (Glucophage) 500 mg BID WITH MEALS PO Last administered on 11/15/18 08:26; Admin Dose 500 MG; Start 11/11/18 at 18:05 Sertraline HCl (Zoloft) 100 mg DAILY PO Last administered on 11/15/18 08:27; Admin Dose 100 MG; Start 11/12/18 at 09:00 Losartan Potassium (Cozaar) 100 mg DAILY PO Last administered on 11/15/18 08:27; Admin Dose 100 MG; Start 11/11/18 at 17:30 Miscellaneous Information 1 ea NOTE XX ; Start 11/11/18 at 18:30 Glucose (Glutose) 15 gm Q15M PRN PO DECREASED GLUCOSE; Start 11/11/18 at 18:30 Glucose (Glutose) 22.5 gm Q15M PRN PO DECREASED GLUCOSE; Start 11/11/18 at 18:30 Dextrose (D50w Syringe) 25 ml Q15M PRN IV DECREASED GLUCOSE; Start 11/11/18 at 18:30 Dextrose (D50w Syringe) 50 ml Q15M PRN IV DECREASED GLUCOSE; Start 11/11/18 at 18:30 Glucagon (Glucagen) 1 mg Q15M PRN IM DECREASED GLUCOSE; Start 11/11/18 at 18:30 Glucose (Glutose) 15 gm Q15M PRN BUCCAL DECREASED GLUCOSE; Start 11/11/18 at 18:30 Diagnostic Test (Pha) (Accu-Chek) 1 ea 02 XX ; Start 11/13/18 at 02:00 Insulin Glargine (Lantus) 15 units DAILY@2000 SC Last administered on 11/14/18 21:53; Admin Dose 15 UNITS; Start 11/12/18 at 20:00 Enoxaparin Sodium (Lovenox) 40 mg DAILY SC Last administered on 11/15/18 08:29; Admin Dose 40 MG; Start 11/12/18 at 09:00 Lactobacillus Acidophilus (Florajen3 Capsule) 1 each BID PO Last administered on 11/15/18 08:26; Admin Dose 1 EACH; Start 11/12/18 at 09:00 Promethazine HCl/ Codeine (Phenergan/ Codeine) 5 ml Q6 PRN PO COUGH Last administered on 11/14/18 08:51; Admin Dose 5 ML; Start 11/12/18 at 17:30 Diphenhydramine HCl (Benadryl) 50 mg QID PRN PO ITCHING Last administered on 11/13/18 19:27; Admin Dose 50 MG; Start 11/13/18 at 07:00 Doxycycline Hyclate (Vibramycin) 100 mg BID PO Last administered on 11/15/18 08:26; Admin Dose 100 MG; Start 11/13/18 at 09:00 Meropenem/Sodium Chloride 50 ml @ 100 mls/hr Q8 IVPB Last administered on 11/15/18 14:02; Admin Dose 100 MLS/HR; Start 11/13/18 at 14:00 Insulin Aspart (Novolog Insulin Pen) NOVOLOG *MODERATE* ALGORITHM AC MEALS SC Last administered on 11/14/18 18:00; Admin Dose 2 UNIT; Start 11/13/18 at 09:00 Fluconazole (Diflucan) 100 mg DAILY PO Last administered on 11/15/18at 08:27; Admin Dose 100 MG; Start 11/14/18 at 09:00 Assessment/Plan Assessment/Plan (Daily) IMP: 1. Empyema Thoracis--s/p small-bore tube placement. 2. Drug rash 3. Anemia RECS: 1. Continue CT to 20 cm H20 suction 2. May use tPA and DNAase as needed 3. Abx per ID 4. CXR in 2-3 days LACHELLE YANG MD Nov 15, 2018 15:43
[2018-11-15 20:00] VITALS: BP 140/60; PULSE 90; RESP 17
[2018-11-15] MEDS: ATORVASTATIN 10 MG TAB PO SCH (21:00)
[2018-11-15] MEDS: INSULIN GLARGINE [LANTus] (100 UNITS/ML) SYG SC SCH (21:51)
[2018-11-16 02:00] VITALS: BP 143/65; RESP 17
[2018-11-16] MEDS: ACCU-CHEK XX SCH (02:00)
[2018-11-16] MEDS: PANTOPRAZOLE (EC) 40 MG TAB PO SCH (06:45)
[2018-11-16] MEDS: MEROPENEM 1 GM/50ML(PMX) 50 ML IVPB SCH ×3 (06:45→21:36)
--- NOTE | 2018-11-16 06:49 | CONS ---
Assessment/Plan Assessment/Plan Hospital Course (Demo Recall) 1) pneumonia with complex L pleural effusion start vanco/zosyn pt will need thorancentesis and possible VATS with decortication check procalcitonin sputum cx if possible nasal swab for MRSA 11/13 - CT shows large amount of atelectasis but also loculated pleural effusion pt likely to need VATS with bronchoscopy due to allergic reaction will change antibiotics to doxy/merrem 11/14 - pt doing ok on doxy/merrem pt to get pigtail cath with probable tPA infusion into it I have placed orders for pleural fluid analysis follow up on repeat CXR to see if bronch may be necessary sputum cx has yeast 11/15 - WBC in pleural fluid is moderately elevated only but mostly PMN's and low glucose pleural cx is NGTD continue with merrem/doxy at present to get CXR this a.m. 11/16 - MRSA was in pleural fluid, add rifampin repeat CBC, procalcitonin in a.m. and if ok will d/c merrem then 2) SLE not currently active only on neurontin 3) DM 4) allergic drug reaction pt states she never had IV antibiotics before but possible penicillin type drug in past since this allergic reaction happened so quickly it suggests she may have seen the class of drug before which make me suspect zosyn is the cause d/c vanco/zosyn increase benadryl to 50mg QID PRN start doxy/merrem likely the rash will progress over the next several days 11/14 - rash is actually better continue with doxy/merrem 5) probable thrush start diflucan 11/15 - thrush is better but still has tongue tip soreness 11/16 - no white patches seen on tongue Consultation Date/Type/Reason Admit Date/Time Nov 11, 2018 at 16:26 Initial Consult Date 11/12/18 Type of Consult ID Date/Time of Note DATE: 11/16/18 TIME: 06:47 24 HR Interval Summary Free Text/Dictation pt has some burning sensation around the pig tail cath drainage has decreased no N, V, D but did have one watery stool yesterday breathing is not bad Exam/Review of Systems Exam Vitals Vital Signs Date Temp Pulse Resp B/P (MAP) Pulse Ox O2 O2 Flow FiO2 Time Delivery Rate 11/16/18 98.4 17 143/65 96 02:00 (91) 11/15/18 83 21 20:30 11/14/18 Room Air 19:51 Intake and Output 11/15/18 11/15/18 11/16/18 1515:00 23:00 07:00 IntakeIntake Total 880 ml 885 ml 225 ml OutputOutput Total 20 ml BalanceBalance 880 ml 865 ml 225 ml Constitutional: alert, oriented Eyes: nl sclera Respiratory: other (decreased BS at L base) Cardiovascular: regular rate and rhythm Results Result Diagram: 11/16/18 0437 11/14/18 0455 Results 24hrs Laboratory Tests Test 11/15/18 07:59 11/15/18 12:27 11/15/18 17:50 11/15/18 21:31 Bedside Glucose 138 134 112 154 Test 11/16/18 04:37 White Blood Count 6.9 # Red Blood Count 3.30 L Hemoglobin 9.6 L Hematocrit 29.0 L Mean Corpuscular 87.9 Volume Mean Corpuscular 29.1 Hemoglobin Mean Corpuscular 33.1 Hemoglobin Concent Red Cell 13.9 Distribution Width Platelet Count 368 Mean Platelet Volume 10.1 Immature 0.700 H Granulocytes % Neutrophils % 65.3 Lymphocytes % 23.9 Monocytes % 6.5 Eosinophils % 3.5 Basophils % 0.1 Nucleated Red Blood 0.0 Cells % Immature 0.050 H Granulocytes # Neutrophils # 4.5 Lymphocytes # 1.7 Monocytes # 0.5 Eosinophils # 0.2 Basophils # 0.0 Nucleated Red Blood 0.0 Cells # Medications Medication Current Medications IV Flush (NS 3 ml) 3 ml PER PROTOCOL IV Last administered on 11/14/18at 20:06; Admin Dose 3 ML; Start 11/11/18 at 17:30 Ondansetron HCl (Zofran Inj) 4 mg Q6H PRN IV NAUSEA/VOMITING; Start 11/11/18 at 17:30 Acetaminophen (Tylenol Tab) 650 mg Q6H PRN PO .PAIN 1-3 OR TEMP; Start 11/11/18 at 17:30 Acetaminophen/ Hydrocodone Bitart ([place] (5/325)) 1 tab Q6H PRN PO .MOD PAIN 4- 6 Last administered on 11/14/18at 21:50; Admin Dose 1 TAB; Start 11/11/18 at 17:30 Zolpidem Tartrate (Ambien) 5 mg QHS PRN PO .INSOMNIA; Start 11/11/18 at 17:30 Pantoprazole (Protonix Tab) 40 mg DAILY@06 PO Last administered on 11/16/18 06:45; Admin Dose 40 MG; Start 11/12/18 at 06:00 Albuterol/ Ipratropium (Duoneb) 3 ml Q6HWA RESP THERAPY HHN Last administered on 11/15/18 20:30; Admin Dose 3 ML; Start 11/11/18 at 20:00 Guaifenesin/ Dextromethorphan (Mucinex Dm) 1 tab BID PO Last administered on 11/15/18 08:26; Admin Dose 1 TAB; Start 11/11/18 at 21:00 Estradiol (Estrace) 1 mg DAILY PO Last administered on 11/15/18 08:27; Admin Dose 1 MG; Start 11/12/18 at 09:00 Atorvastatin Calcium (Lipitor) 10 mg HS PO Last administered on 11/14/18 20:06; Admin Dose 10 MG; Start 11/11/18 at 21:00 Gabapentin (Neurontin) 300 mg BID PO Last administered on 11/15/18 21:32; Admin Dose 300 MG; Start 11/11/18 at 21:00 Metformin HCl (Glucophage) 500 mg BID WITH MEALS PO Last administered on 11/15/18 08:26; Admin Dose 500 MG; Start 11/11/18 at 18:05 Sertraline HCl (Zoloft) 100 mg DAILY PO Last administered on 11/15/18 08:27; Admin Dose 100 MG; Start 11/12/18 at 09:00 Losartan Potassium (Cozaar) 100 mg DAILY PO Last administered on 11/15/18 08:27; Admin Dose 100 MG; Start 11/11/18 at 17:30 Miscellaneous Information 1 ea NOTE XX ; Start 11/11/18 at 18:30 Glucose (Glutose) 15 gm Q15M PRN PO DECREASED GLUCOSE; Start 11/11/18 at 18:30 Glucose (Glutose) 22.5 gm Q15M PRN PO DECREASED GLUCOSE; Start 11/11/18 at 18:30 Dextrose (D50w Syringe) 25 ml Q15M PRN IV DECREASED GLUCOSE; Start 11/11/18 at 18:30 Dextrose (D50w Syringe) 50 ml Q15M PRN IV DECREASED GLUCOSE; Start 11/11/18 at 18:30 Glucagon (Glucagen) 1 mg Q15M PRN IM DECREASED GLUCOSE; Start 11/11/18 at 18:30 Glucose (Glutose) 15 gm Q15M PRN BUCCAL DECREASED GLUCOSE; Start 11/11/18 at 18:30 Diagnostic Test (Pha) (Accu-Chek) 1 ea 02 XX ; Start 11/13/18 at 02:00 Insulin Glargine (Lantus) 15 units DAILY@2000 SC Last administered on 11/15/18 21:51; Admin Dose 15 UNITS; Start 11/12/18 at 20:00 Enoxaparin Sodium (Lovenox) 40 mg DAILY SC Last administered on 11/15/18 08:29; Admin Dose 40 MG; Start 11/12/18 at 09:00 Lactobacillus Acidophilus (Florajen3 Capsule) 1 each BID PO Last administered on 11/15/18 08:26; Admin Dose 1 EACH; Start 11/12/18 at 09:00 Promethazine HCl/ Codeine (Phenergan/ Codeine) 5 ml Q6 PRN PO COUGH Last administered on 11/14/18 08:51; Admin Dose 5 ML; Start 11/12/18 at 17:30 Diphenhydramine HCl (Benadryl) 50 mg QID PRN PO ITCHING Last administered on 11/13/18 19:27; Admin Dose 50 MG; Start 11/13/18 at 07:00 Doxycycline Hyclate (Vibramycin) 100 mg BID PO Last administered on 11/15/18 21:31; Admin Dose 100 MG; Start 11/13/18 at 09:00 Meropenem/Sodium Chloride 50 ml @ 100 mls/hr Q8 IVPB Last administered on 11/16/18 06:45; Admin Dose 100 MLS/HR; Start 11/13/18 at 14:00 Insulin Aspart (Novolog Insulin Pen) NOVOLOG *MODERATE* ALGORITHM AC MEALS SC Last administered on 11/14/18 18:00; Admin Dose 2 UNIT; Start 11/13/18 at 09:00 Fluconazole (Diflucan) 100 mg DAILY PO Last administered on 11/15/18 08:27; Admin Dose 100 MG; Start 11/14/18 at 09:00 THONY MCDUFFIE MD Nov 16, 2018 06:49
[2018-11-16] MEDS: ALBUTEROL/IPRATROPIUM (NEB) 3 ML AMP HHN SCH ×3 (07:27→19:57)
[2018-11-16 07:40] VITALS: BP 120/59; PULSE 88; RESP 18
--- NOTE | 2018-11-16 07:55 | PN ---
Date/Time of Note Date/Time of Note DATE: 11/16/18 TIME: 07:50 Assessment/Plan Lines/Catheters IV Catheter Type (from Nrs): Saline Lock [place] in Place (from Nrs): No Assessment/Plan Chief Complaint/Hosp Course left locuated pleural effusion continue drainage Subjective 24 Hr Interval Summary Constitutional: no complaints Feeding: baseline diet Pain Control: well controlled Exam/Review of Systems Vital Signs Vitals Vital Signs Date Temp Pulse Resp B/P (MAP) Pulse Ox O2 O2 Flow FiO2 Time Delivery Rate 11/16/18 73 20 95 21 07:32 11/16/18 98.4 143/65 02:00 (91) 11/14/18 Room Air 19:51 Intake and Output 11/15/18 11/15/18 11/16/18 1515:00 23:00 07:00 IntakeIntake Total 880 ml 885 ml 225 ml OutputOutput Total 20 ml 20 ml BalanceBalance 880 ml 865 ml 205 ml Exam Constitutional: oriented Psych: no complaints Head: normocephalic Eyes: EOMI Neck: supple Respiratory: other (drainage left 40 cc/24) Cardiovascular: regular rate and rhythm Results Free Text/Dictation staph aureus cultured cxr yesterday improved somewhat Result Diagram: 11/16/18 0437 11/14/18 0455 ANDREW WILKES MD Nov 16, 2018 07:55
[2018-11-16] MEDS ORDERED: RIFAMPIN 300 MG CAP PO SCH (09:00)
[2018-11-16] MEDS: INSULIN ASPART [NOVOLOG] 3 ML PEN SC SCH ×3 (09:14→17:25)
[2018-11-16] MEDS: metFORMIN 500 MG TAB PO SCH ×2 (09:15→17:41)
[2018-11-16] MEDS: FLUCONAZOLE 100 MG TAB PO SCH (09:16)
[2018-11-16] MEDS: LOSARTAN 50 MG TAB PO SCH (09:16)
[2018-11-16] MEDS: ESTRADIOL 1 MG TAB PO SCH (09:16)
[2018-11-16] MEDS: DOXYCYCLINE 100 MG TAB PO SCH ×2 (09:16→20:55)
[2018-11-16] MEDS: GABAPENTIN 300 MG CAP PO SCH ×2 (09:18→20:55)
[2018-11-16] MEDS: GUAIFENESIN/DM (SR) TAB PO SCH ×2 (09:18→20:54)
[2018-11-16] MEDS: L ACIDOPHIL/B LACTIS/B LONGUM CAPSULE PO SCH ×2 (09:19→20:55)
[2018-11-16] MEDS: SERTRALINE 100 MG TAB PO SCH (09:19)
[2018-11-16] MEDS: ENOXAPARIN 40 MG/0.4 ML SYG SC SCH (09:28)
[2018-11-16 14:00] VITALS: BP 129/63; PULSE 81; RESP 18
--- NOTE | 2018-11-16 14:09 | CONS ---
Assessment/Plan Assessment/Plan Assessment/Plan (Daily) * complicated PNA with loculated effusion: s/p pig tail catheter. on abx and appears clinically better * drug reaction: likley to zosyn. resolving and tolerating current abx. no rash or itching * sle: in remission * anemia: monitor cbc/ recheck iron sats * thrush: on fluconazole * dm: on meds * htn: on meds * hypokalemia: replace and follow Consultation Date/Type/Reason Admit Date/Time Nov 11, 2018 at 16:26 Initial Consult Date 11/12/18 Date/Time of Note DATE: 11/16/18 TIME: 14:08 24 HR Interval Summary Free Text/Dictation doing well. minimal pain at the site of tube. minimal drainage. no cough/ fever or sob Exam/Review of Systems Exam Vitals Vital Signs Date Temp Pulse Resp B/P (MAP) Pulse Ox O2 O2 Flow FiO2 Time Delivery Rate 11/16/18 98.8 88 18 120/59 97 Room Air 07:40 (79) 11/16/18 21 07:32 Intake and Output 11/15/18 11/15/18 11/16/18 1515:00 23:00 07:00 IntakeIntake Total 880 ml 885 ml 225 ml OutputOutput Total 20 ml 20 ml BalanceBalance 880 ml 865 ml 205 ml Constitutional: alert, oriented Psych: no complaints Head: normocephalic ENMT: nl external ears & nose Neck: supple, jvd Respiratory: diminished breath sounds Cardiovascular: regular rate and rhythm, edema Gastrointestinal: soft (pleurex in place) Results Result Diagram: 11/16/18 0437 11/16/18 0437 Results 24hrs Laboratory Tests Test 11/15/18 17:50 11/15/18 21:31 11/16/18 04:37 11/16/18 09:13 Bedside Glucose 112 154 113 White Blood Count 6.9 # Red Blood Count 3.30 L Hemoglobin 9.6 L Hematocrit 29.0 L Mean Corpuscular 87.9 Volume Mean Corpuscular 29.1 Hemoglobin Mean Corpuscular 33.1 Hemoglobin Concent Red Cell 13.9 Distribution Width Platelet Count 368 Mean Platelet Volume 10.1 Immature 0.700 H Granulocytes % Neutrophils % 65.3 Lymphocytes % 23.9 Monocytes % 6.5 Eosinophils % 3.5 Basophils % 0.1 Nucleated Red Blood 0.0 Cells % Immature 0.050 H Granulocytes # Neutrophils # 4.5 Lymphocytes # 1.7 Monocytes # 0.5 Eosinophils # 0.2 Basophils # 0.0 Nucleated Red Blood 0.0 Cells # Sodium Level 140 Potassium Level 3.3 L Chloride Level 106 Carbon Dioxide Level 24 Anion Gap 10 Blood Urea Nitrogen 7 Creatinine 0.50 Est Glomerular > 60 Filtrat Rate mL/min Glucose Level 114 Calcium Level 8.8 Total Bilirubin 0.3 Direct Bilirubin 0.00 Indirect Bilirubin 0.3 Aspartate Amino 20 Transf (AST/SGOT) Alanine 25 Aminotransferase (AL T/SGPT) Alkaline Phosphatase 65 Total Protein 6.6 Albumin 3.0 L Globulin 3.60 H Albumin/Globulin 0.83 Ratio Test 11/16/18 13:01 Bedside Glucose 100 Medications Medication Current Medications IV Flush (NS 3 ml) 3 ml PER PROTOCOL IV Last administered on 11/14/18 20:06; Admin Dose 3 ML; Start 11/11/18 at 17:30 Ondansetron HCl (Zofran Inj) 4 mg Q6H PRN IV NAUSEA/VOMITING; Start 11/11/18 at 17:30 Acetaminophen (Tylenol Tab) 650 mg Q6H PRN PO .PAIN 1-3 OR TEMP; Start 11/11/18 at 17:30 Acetaminophen/ Hydrocodone Bitart ([place] (5/325)) 1 tab Q6H PRN PO .MOD PAIN 4- 6 Last administered on 11/14/18at 21:50; Admin Dose 1 TAB; Start 11/11/18 at 17:30 Zolpidem Tartrate (Ambien) 5 mg QHS PRN PO .INSOMNIA; Start 11/11/18 at 17:30 Pantoprazole (Protonix Tab) 40 mg DAILY@06 PO Last administered on 11/16/18at 06:45; Admin Dose 40 MG; Start 11/12/18 at 06:00 Albuterol/ Ipratropium (Duoneb) 3 ml Q6HWA RESP THERAPY HHN Last administered on 11/16/18at 07:27; Admin Dose 3 ML; Start 11/11/18 at 20:00 Guaifenesin/ Dextromethorphan (Mucinex Dm) 1 tab BID PO Last administered on 11/16/18at 09:18; Admin Dose 1 TAB; Start 11/11/18 at 21:00 Estradiol (Estrace) 1 mg DAILY PO Last administered on 11/16/18 09:16; Admin Dose 1 MG; Start 11/12/18 at 09:00 Atorvastatin Calcium (Lipitor) 10 mg HS PO Last administered on 11/14/18at 20:06; Admin Dose 10 MG; Start 11/11/18 at 21:00 Gabapentin (Neurontin) 300 mg BID PO Last administered on 11/16/18 09:18; Admin Dose 300 MG; Start 11/11/18 at 21:00 Metformin HCl (Glucophage) 500 mg BID WITH MEALS PO Last administered on 11/16/18 09:15; Admin Dose 500 MG; Start 11/11/18 at 18:05 Sertraline HCl (Zoloft) 100 mg DAILY PO Last administered on 11/16/18 09:19; Admin Dose 100 MG; Start 11/12/18 at 09:00 Losartan Potassium (Cozaar) 100 mg DAILY PO Last administered on 11/16/18 09:16; Admin Dose 100 MG; Start 11/11/18 at 17:30 Miscellaneous Information 1 ea NOTE XX ; Start 11/11/18 at 18:30 Glucose (Glutose) 15 gm Q15M PRN PO DECREASED GLUCOSE; Start 11/11/18 at 18:30 Glucose (Glutose) 22.5 gm Q15M PRN PO DECREASED GLUCOSE; Start 11/11/18 at 18:30 Dextrose (D50w Syringe) 25 ml Q15M PRN IV DECREASED GLUCOSE; Start 11/11/18 at 18:30 Dextrose (D50w Syringe) 50 ml Q15M PRN IV DECREASED GLUCOSE; Start 11/11/18 at 18:30 Glucagon (Glucagen) 1 mg Q15M PRN IM DECREASED GLUCOSE; Start 11/11/18 at 18:30 Glucose (Glutose) 15 gm Q15M PRN BUCCAL DECREASED GLUCOSE; Start 11/11/18 at 18:30 Diagnostic Test (Pha) (Accu-Chek) 1 ea 02 XX ; Start 11/13/18 at 02:00 Insulin Glargine (Lantus) 15 units DAILY@2000 SC Last administered on 11/15/18at 21:51; Admin Dose 15 UNITS; Start 11/12/18 at 20:00 Enoxaparin Sodium (Lovenox) 40 mg DAILY SC Last administered on 11/16/18 09:28; Admin Dose 40 MG; Start 11/12/18 at 09:00 Lactobacillus Acidophilus (Florajen3 Capsule) 1 each BID PO Last administered on 11/16/18 09:19; Admin Dose 1 EACH; Start 11/12/18 at 09:00 Promethazine HCl/ Codeine (Phenergan/ Codeine) 5 ml Q6 PRN PO COUGH Last administered on 11/14/18 08:51; Admin Dose 5 ML; Start 11/12/18 at 17:30 Diphenhydramine HCl (Benadryl) 50 mg QID PRN PO ITCHING Last administered on 11/13/18 19:27; Admin Dose 50 MG; Start 11/13/18 at 07:00 Doxycycline Hyclate (Vibramycin) 100 mg BID PO Last administered on 11/16/18 09:16; Admin Dose 100 MG; Start 11/13/18 at 09:00 Meropenem/Sodium Chloride 50 ml @ 100 mls/hr Q8 IVPB Last administered on 11/16/18 06:45; Admin Dose 100 MLS/HR; Start 11/13/18 at 14:00 Insulin Aspart (Novolog Insulin Pen) NOVOLOG *MODERATE* ALGORITHM AC MEALS SC Last administered on 11/14/18 18:00; Admin Dose 2 UNIT; Start 11/13/18 at 09:00 Fluconazole (Diflucan) 100 mg DAILY PO Last administered on 11/16/18 09:16; Admin Dose 100 MG; Start 11/14/18 at 09:00 Rifampin (Rifampin) 600 mg DAILY@0600 PO ; Start 11/17/18 at 06:00 PHILIP RASHID MD Nov 16, 2018 14:09
[2018-11-16] MEDS ORDERED: POTASSIUM CHLORIDE (SR) 20 MEQ TAB PO STA (14:10)
[2018-11-16] MEDS: ONDANSETRON 4 MG INJ IV PRN (14:31)
--- NOTE | 2018-11-16 18:05 | CONS ---
Consult Date/Type/Reason Admit Date/Time Nov 11, 2018 at 16:26 Initial Consult Date 11/12/18 Type of Consultation: Pulm Date/Time of Note DATE: 11/16/18 TIME: 18:04 Subjective Doing well. On room air. CXR looks improved. Objective Vitals Vital Signs Date Temp Pulse Resp B/P (MAP) Pulse Ox O2 O2 Flow FiO2 Time Delivery Rate 11/16/18 88 15 97 21 15:50 11/16/18 97.2 129/63 Room Air 14:00 (85) Intake and Output 11/15/18 11/15/18 11/16/18 1515:00 23:00 07:00 IntakeIntake Total 880 ml 885 ml 225 ml OutputOutput Total 20 ml 20 ml BalanceBalance 880 ml 865 ml 205 ml Exam HEENT: Neck supple; no JVD; no LAD CVS: RRR, S1 and S2 CHEST: Decreased BS left base ABD: Soft, NT, + BS EXT: No c/c/e Results/Medications Result Diagram: 11/16/187 11/16/18 0437 Results 24 hrs Laboratory Tests Test 11/15/18 21:31 11/16/18 04:37 11/16/18 09:13 11/16/18 13:01 Bedside Glucose 154 113 100 White Blood Count 6.9 # Red Blood Count 3.30 L Hemoglobin 9.6 L Hematocrit 29.0 L Mean Corpuscular 87.9 Volume Mean Corpuscular 29.1 Hemoglobin Mean Corpuscular 33.1 Hemoglobin Concent Red Cell 13.9 Distribution Width Platelet Count 368 Mean Platelet Volume 10.1 Immature 0.700 H Granulocytes % Neutrophils % 65.3 Lymphocytes % 23.9 Monocytes % 6.5 Eosinophils % 3.5 Basophils % 0.1 Nucleated Red Blood 0.0 Cells % Immature 0.050 H Granulocytes # Neutrophils # 4.5 Lymphocytes # 1.7 Monocytes # 0.5 Eosinophils # 0.2 Basophils # 0.0 Nucleated Red Blood 0.0 Cells # Sodium Level 140 Potassium Level 3.3 L Chloride Level 106 Carbon Dioxide Level 24 Anion Gap 10 Blood Urea Nitrogen 7 Creatinine 0.50 Est Glomerular > 60 Filtrat Rate mL/min Glucose Level 114 Calcium Level 8.8 Total Bilirubin 0.3 Direct Bilirubin 0.00 Indirect Bilirubin 0.3 Aspartate Amino 20 Transf (AST/SGOT) Alanine 25 Aminotransferase (AL T/SGPT) Alkaline Phosphatase 65 Total Protein 6.6 Albumin 3.0 L Globulin 3.60 H Albumin/Globulin 0.83 Ratio Test 11/16/18 17:40 Bedside Glucose 106 Home Meds Active Scripts Prednisone* (Prednisone*) 20 Mg Tab, 60 MG PO DAILY for 5 Days, TAB Prov:CHRIS OVERTON MD 11/04/18 Albuterol Sulfate* (Proair HFA*) 8.5 Gm Hfa.aer.ad, 2 PUFF INH Q6H PRN for WHEEZING AND SOB, #1 INHALER Prov:CRHIS OVERTON MD 11/04/18 Azithromycin* (Zithromax*) 250 Mg Tablet, 250 MG PO .TjPACK DIRECTED, #6 TAB TAKE 500 MG (2 TABS) THE FIRST DAY THEN 250 MG (1 TAB) DAYS 2-5 Prov:CHRIS OVERTON MD 11/04/18 Reported Medications Estradiol* (Estradiol*) 2 Mg Tablet, 1 MG PO DAILY, TAB 11/04/18 Glyburide* (Glyburide*) 5 Mg Tablet, 1 TAB ORAL DAILY 11/04/18 Losartan-Hydrochlorothiazide (Losartan-HCTZ) 100-12.5 Mg Tab, 1 TAB ORAL DAILY 11/04/18 Sertraline Hcl* (Sertraline Hcl*) 100 Mg Tablet, 1 TAB ORAL QHS 11/04/18 Atorvastatin (Atorvastatin) 10 Mg Tablet, 1 TAB ORAL QHS 11/04/18 Levothyroxine Sodium* (Levothyroxine Sodium*) 25 Mcg Tablet, 1 TAB ORAL QAM 11/04/18 Metformin* (Glucophage*) 500 Mg Tab, 500 MG PO WITH BREAKFAST DINNE, #30 TAB 11/04/18 Hydrocodone/Acetaminophen (Hydrocodone-Acetamin 10-325 mg) 1 Each Tablet, 1 TAB ORAL Q6 PRN for PAIN LEVEL 1-5 11/04/18 Beclomethasone Dipropionate (Qvar Redihaler (80 MCG)) 10.6 Gm Hfa.aeroba, 1 PUFF IH BID, INH 11/04/18 Acetaminophen* (Tylenol*) 325 Mg Tablet, 325 MG PO Q4H PRN for PAIN AND OR ELEVATED TEMP, TAB 11/04/18 Carisoprodol* (Soma*) 350 Mg Tablet, 350 MG PO Q8H PRN for MUSCLE SPASMS, TAB 11/04/18 Diphenhydramine Hcl* (Diphenhydramine Hcl*) 25 Mg Capsule, 25 MG PO Q6 PRN for ITCHING, CAP 11/04/18 Esomeprazole Magnesium (Nexium 24Hr) 20 Mg Capsule.dr, 20 MG PO DAILY 11/04/18 Fluticasone Propionate* (Flovent* HFA 220) 12 Gm Inha, 1 PUFF INHALATION BID, #1 INHALER 11/04/18 Medications Current Medications IV Flush (NS 3 ml) 3 ml PER PROTOCOL IV Last administered on 11/14/18 20:06; Admin Dose 3 ML; Start 11/11/18 at 17:30 Ondansetron HCl (Zofran Inj) 4 mg Q6H PRN IV NAUSEA/VOMITING Last administered on 11/16/18 14:31; Admin Dose 4 MG; Start 11/11/18 at 17:30 Acetaminophen (Tylenol Tab) 650 mg Q6H PRN PO .PAIN 1-3 OR TEMP; Start 11/11/18 at 17:30 Acetaminophen/ Hydrocodone Bitart ([place] (5/325)) 1 tab Q6H PRN PO .MOD PAIN 4- 6 Last administered on 11/14/18 21:50; Admin Dose 1 TAB; Start 11/11/18 at 17:30 Zolpidem Tartrate (Ambien) 5 mg QHS PRN PO .INSOMNIA; Start 11/11/18 at 17:30 Pantoprazole (Protonix Tab) 40 mg DAILY@06 PO Last administered on 11/16/18 06:45; Admin Dose 40 MG; Start 11/12/18 at 06:00 Albuterol/ Ipratropium (Duoneb) 3 ml Q6HWA RESP THERAPY HHN Last administered on 11/16/18 15:46; Admin Dose 3 ML; Start 11/11/18 at 20:00 Guaifenesin/ Dextromethorphan (Mucinex Dm) 1 tab BID PO Last administered on 11/16/18 09:18; Admin Dose 1 TAB; Start 11/11/18 at 21:00 Estradiol (Estrace) 1 mg DAILY PO Last administered on 11/16/18 09:16; Admin Dose 1 MG; Start 11/12/18 at 09:00 Atorvastatin Calcium (Lipitor) 10 mg HS PO Last administered on 11/14/18 20:06; Admin Dose 10 MG; Start 11/11/18 at 21:00 Gabapentin (Neurontin) 300 mg BID PO Last administered on 11/16/18 09:18; Admin Dose 300 MG; Start 11/11/18 at 21:00 Metformin HCl (Glucophage) 500 mg BID WITH MEALS PO Last administered on 11/16/18at 17:41; Admin Dose 500 MG; Start 11/11/18 at 18:05 Sertraline HCl (Zoloft) 100 mg DAILY PO Last administered on 11/16/18 09:19; Admin Dose 100 MG; Start 11/12/18 at 09:00 Losartan Potassium (Cozaar) 100 mg DAILY PO Last administered on 11/16/18 09:16; Admin Dose 100 MG; Start 11/11/18 at 17:30 Miscellaneous Information 1 ea NOTE XX ; Start 11/11/18 at 18:30 Glucose (Glutose) 15 gm Q15M PRN PO DECREASED GLUCOSE; Start 11/11/18 at 18:30 Glucose (Glutose) 22.5 gm Q15M PRN PO DECREASED GLUCOSE; Start 11/11/18 at 18:30 Dextrose (D50w Syringe) 25 ml Q15M PRN IV DECREASED GLUCOSE; Start 11/11/18 at 18:30 Dextrose (D50w Syringe) 50 ml Q15M PRN IV DECREASED GLUCOSE; Start 11/11/18 at 18:30 Glucagon (Glucagen) 1 mg Q15M PRN IM DECREASED GLUCOSE; Start 11/11/18 at 18:30 Glucose (Glutose) 15 gm Q15M PRN BUCCAL DECREASED GLUCOSE; Start 11/11/18 at 18:30 Diagnostic Test (Pha) (Accu-Chek) 1 ea 02 XX ; Start 11/13/18 at 02:00 Insulin Glargine (Lantus) 15 units DAILY@2000 SC Last administered on 11/15/18at 21:51; Admin Dose 15 UNITS; Start 11/12/18 at 20:00 Enoxaparin Sodium (Lovenox) 40 mg DAILY SC Last administered on 11/16/18at 09:28; Admin Dose 40 MG; Start 11/12/18 at 09:00 Lactobacillus Acidophilus (Florajen3 Capsule) 1 each BID PO Last administered on 11/16/18 09:19; Admin Dose 1 EACH; Start 11/12/18 at 09:00 Promethazine HCl/ Codeine (Phenergan/ Codeine) 5 ml Q6 PRN PO COUGH Last administered on 11/14/18 08:51; Admin Dose 5 ML; Start 11/12/18 at 17:30 Diphenhydramine HCl (Benadryl) 50 mg QID PRN PO ITCHING Last administered on 11/13/18 19:27; Admin Dose 50 MG; Start 11/13/18 at 07:00 Doxycycline Hyclate (Vibramycin) 100 mg BID PO Last administered on 11/16/18 09:16; Admin Dose 100 MG; Start 11/13/18 at 09:00 Meropenem/Sodium Chloride 50 ml @ 100 mls/hr Q8 IVPB Last administered on 11/16/18 14:34; Admin Dose 100 MLS/HR; Start 11/13/18 at 14:00 Insulin Aspart (Novolog Insulin Pen) NOVOLOG *MODERATE* ALGORITHM AC MEALS SC Last administered on 11/14/18 18:00; Admin Dose 2 UNIT; Start 11/13/18 at 09:00 Fluconazole (Diflucan) 100 mg DAILY PO Last administered on 11/16/18 09:16; Admin Dose 100 MG; Start 11/14/18 at 09:00 Rifampin (Rifampin) 600 mg DAILY@0600 PO ; Start 11/17/18 at 06:00 Assessment/Plan Assessment/Plan (Daily) IMP: 1. Empyema Thoracis--s/p small-bore tube placement. 2. Drug rash 3. Anemia RECS: 1. Continue CT to 20 cm H20 suction 2. May use tPA and DNAase as needed to improve drainage though I suspect minimal residual collection 3. Abx per ID 4. CXR in 2-3 days LACHELLE YANG MD Nov 16, 2018 18:05
[2018-11-16 19:21] VITALS: BP 141/65; PULSE 95; RESP 16
[2018-11-16] MEDS: ATORVASTATIN 10 MG TAB PO SCH (20:55)
[2018-11-16] MEDS: INSULIN GLARGINE [LANTus] (100 UNITS/ML) SYG SC SCH (20:58)
[2018-11-17 01:43] VITALS: BP 131/59; PULSE 90; RESP 20
[2018-11-17] MEDS: ACCU-CHEK XX SCH (02:00)
[2018-11-17] MEDS: MEROPENEM 1 GM/50ML(PMX) 50 ML IVPB SCH (05:13)
[2018-11-17] MEDS: PANTOPRAZOLE (EC) 40 MG TAB PO SCH (05:13)
[2018-11-17] MEDS: RIFAMPIN 300 MG CAP PO SCH (05:16)
--- NOTE | 2018-11-17 07:08 | CONS ---
Assessment/Plan Assessment/Plan Hospital Course (Demo Recall) 1) pneumonia with complex L pleural effusion start vanco/zosyn pt will need thorancentesis and possible VATS with decortication check procalcitonin sputum cx if possible nasal swab for MRSA 11/13 - CT shows large amount of atelectasis but also loculated pleural effusion pt likely to need VATS with bronchoscopy due to allergic reaction will change antibiotics to doxy/merrem 11/14 - pt doing ok on doxy/merrem pt to get pigtail cath with probable tPA infusion into it I have placed orders for pleural fluid analysis follow up on repeat CXR to see if bronch may be necessary sputum cx has yeast 11/15 - WBC in pleural fluid is moderately elevated only but mostly PMN's and low glucose pleural cx is NGTD continue with merrem/doxy at present to get CXR this a.m. 11/16 - MRSA was in pleural fluid, add rifampin repeat CBC, procalcitonin in a.m. and if ok will d/c merrem then 11/17 - WBC is ok and if procalcitonin remains neg to d/c merrem and continue with doxy/rif 2) SLE not currently active only on neurontin 3) DM 4) allergic drug reaction pt states she never had IV antibiotics before but possible penicillin type drug in past since this allergic reaction happened so quickly it suggests she may have seen the class of drug before which make me suspect zosyn is the cause d/c vanco/zosyn increase benadryl to 50mg QID PRN start doxy/merrem likely the rash will progress over the next several days 11/14 - rash is actually better continue with doxy/merrem 5) probable thrush start diflucan 11/15 - thrush is better but still has tongue tip soreness 11/16 - no white patches seen on tongue 11/17 - resolved if merrem is stopped will d/c diflucan 6) diarrhea 11/17 - continue with probiotic, stool not smelly, hopefully merrem will be stopped and this should help continue with probiotic Consultation Date/Type/Reason Admit Date/Time Nov 11, 2018 at 16:26 Initial Consult Date 11/12/18 Type of Consult ID Date/Time of Note DATE: 11/17/18 TIME: 07:05 24 HR Interval Summary Free Text/Dictation pt is having diarrhea with a little cramping no N, V no dysphagia or soreness in mouth Exam/Review of Systems Exam Vitals Vital Signs Date Temp Pulse Resp B/P (MAP) Pulse Ox O2 O2 Flow FiO2 Time Delivery Rate 11/17/18 98.5 90 20 131/59 95 Room Air 01:43 (83) 11/16/18 21 19:57 Intake and Output 11/16/18 11/16/18 11/17/18 1515:00 23:00 07:00 IntakeIntake Total 50 ml 650 ml 770 ml OutputOutput Total 5 ml 0 ml BalanceBalance 50 ml 645 ml 770 ml Constitutional: alert, oriented Eyes: nl sclera ENMT: mucosa pink and moist Respiratory: other (decreased BS at both bases) Cardiovascular: regular rate and rhythm Gastrointestinal: soft (very mildly tender diffusely) Results Result Diagram: 11/17/18 0434 11/17/18 0443 Results 24hrs Laboratory Tests Test 11/16/18 09:13 11/16/18 13:01 11/16/18 17:40 11/16/18 20:53 Bedside Glucose 113 100 106 131 Test 11/17/18 04:34 11/17/18 04:43 White Blood Count 8.2 Red Blood Count 3.31 L Hemoglobin 9.6 L Hematocrit 28.9 L Mean Corpuscular 87.3 Volume Mean Corpuscular 29.0 Hemoglobin Mean Corpuscular 33.2 Hemoglobin Concent Red Cell 13.8 Distribution Width Platelet Count 401 Mean Platelet Volume 10.2 Immature 0.600 H Granulocytes % Neutrophils % 72.4 Lymphocytes % 16.7 Monocytes % 6.4 Eosinophils % 3.8 Basophils % 0.1 Nucleated Red Blood 0.0 Cells % Immature 0.050 H Granulocytes # Neutrophils # 5.9 Lymphocytes # 1.4 Monocytes # 0.5 Eosinophils # 0.3 Basophils # 0.0 Nucleated Red Blood 0.0 Cells # Sodium Level 139 Potassium Level 3.5 Chloride Level 104 Carbon Dioxide Level 26 Anion Gap 9 Blood Urea Nitrogen 9 Creatinine 0.51 Est Glomerular > 60 Filtrat Rate mL/min Glucose Level 99 Calcium Level 8.7 Ferritin Pending Total Bilirubin 0.8 Direct Bilirubin 0.00 Indirect Bilirubin 0.8 Aspartate Amino 24 Transf (AST/SGOT) Alanine 22 Aminotransferase (AL T/SGPT) Alkaline Phosphatase 74 Total Protein 6.8 Albumin 3.1 L Globulin 3.70 H Albumin/Globulin 0.83 Ratio Medications Medication Current Medications IV Flush (NS 3 ml) 3 ml PER PROTOCOL IV Last administered on 11/14/18 20:06; Admin Dose 3 ML; Start 11/11/18 at 17:30 Ondansetron HCl (Zofran Inj) 4 mg Q6H PRN IV NAUSEA/VOMITING Last administered on 11/16/18 14:31; Admin Dose 4 MG; Start 11/11/18 at 17:30 Acetaminophen (Tylenol Tab) 650 mg Q6H PRN PO .PAIN 1-3 OR TEMP; Start 11/11/18 at 17:30 Acetaminophen/ Hydrocodone Bitart ([place] (5/325)) 1 tab Q6H PRN PO .MOD PAIN 4- 6 Last administered on 11/14/18 21:50; Admin Dose 1 TAB; Start 11/11/18 at 17:30 Zolpidem Tartrate (Ambien) 5 mg QHS PRN PO .INSOMNIA; Start 11/11/18 at 17:30 Pantoprazole (Protonix Tab) 40 mg DAILY@06 PO Last administered on 11/17/18 05:13; Admin Dose 40 MG; Start 11/12/18 at 06:00 Albuterol/ Ipratropium (Duoneb) 3 ml Q6HWA RESP THERAPY HHN Last administered on 11/16/18 19:57; Admin Dose 3 ML; Start 11/11/18 at 20:00 Guaifenesin/ Dextromethorphan (Mucinex Dm) 1 tab BID PO Last administered on 11/16/18 20:54; Admin Dose 1 TAB; Start 11/11/18 at 21:00 Estradiol (Estrace) 1 mg DAILY PO Last administered on 11/16/18 09:16; Admin Dose 1 MG; Start 11/12/18 at 09:00 Atorvastatin Calcium (Lipitor) 10 mg HS PO Last administered on 11/16/18 20:55; Admin Dose 10 MG; Start 11/11/18 at 21:00 Gabapentin (Neurontin) 300 mg BID PO Last administered on 11/16/18 20:55; Admin Dose 300 MG; Start 11/11/18 at 21:00 Metformin HCl (Glucophage) 500 mg BID WITH MEALS PO Last administered on 11/16/18 17:41; Admin Dose 500 MG; Start 11/11/18 at 18:05 Sertraline HCl (Zoloft) 100 mg DAILY PO Last administered on 11/16/18 09:19; Admin Dose 100 MG; Start 11/12/18 at 09:00 Losartan Potassium (Cozaar) 100 mg DAILY PO Last administered on 11/16/18 09:16; Admin Dose 100 MG; Start 11/11/18 at 17:30 Miscellaneous Information 1 ea NOTE XX ; Start 11/11/18 at 18:30 Glucose (Glutose) 15 gm Q15M PRN PO DECREASED GLUCOSE; Start 11/11/18 at 18:30 Glucose (Glutose) 22.5 gm Q15M PRN PO DECREASED GLUCOSE; Start 11/11/18 at 18:30 Dextrose (D50w Syringe) 25 ml Q15M PRN IV DECREASED GLUCOSE; Start 11/11/18 at 18:30 Dextrose (D50w Syringe) 50 ml Q15M PRN IV DECREASED GLUCOSE; Start 11/11/18 at 18:30 Glucagon (Glucagen) 1 mg Q15M PRN IM DECREASED GLUCOSE; Start 11/11/18 at 18:30 Glucose (Glutose) 15 gm Q15M PRN BUCCAL DECREASED GLUCOSE; Start 11/11/18 at 18:30 Diagnostic Test (Pha) (Accu-Chek) 1 ea 02 XX ; Start 11/13/18 at 02:00 Insulin Glargine (Lantus) 15 units DAILY@2000 SC Last administered on 11/16/18 20:58; Admin Dose 15 UNITS; Start 11/12/18 at 20:00 Enoxaparin Sodium (Lovenox) 40 mg DAILY SC Last administered on 11/16/18 09:28; Admin Dose 40 MG; Start 11/12/18 at 09:00 Lactobacillus Acidophilus (Florajen3 Capsule) 1 each BID PO Last administered on 11/16/18 20:55; Admin Dose 1 EACH; Start 11/12/18 at 09:00 Promethazine HCl/ Codeine (Phenergan/ Codeine) 5 ml Q6 PRN PO COUGH Last a dministered on 11/14/18 08:51; Admin Dose 5 ML; Start 11/12/18 at 17:30 Diphenhydramine HCl (Benadryl) 50 mg QID PRN PO ITCHING Last administered on 11/13/18 19:27; Admin Dose 50 MG; Start 11/13/18 at 07:00 Doxycycline Hyclate (Vibramycin) 100 mg BID PO Last administered on 11/16/18 20:55; Admin Dose 100 MG; Start 11/13/18 at 09:00 Meropenem/Sodium Chloride 50 ml @ 100 mls/hr Q8 IVPB Last administered on 11/17/18 05:13; Admin Dose 100 MLS/HR; Start 11/13/18 at 14:00 Insulin Aspart (Novolog Insulin Pen) NOVOLOG *MODERATE* ALGORITHM AC MEALS SC Last administered on 11/14/18 18:00; Admin Dose 2 UNIT; Start 11/13/18 at 09:00 Fluconazole (Diflucan) 100 mg DAILY PO Last administered on 11/16/18 09:16; Admin Dose 100 MG; Start 11/14/18 at 09:00 Rifampin (Rifampin) 600 mg DAILY@0600 PO Last administered on 11/17/18 05:16; Admin Dose 600 MG; Start 11/17/18 at 06:00 THONY MCDUFFIE MD Nov 17, 2018 07:08
[2018-11-17 07:16] VITALS: BP 135/64; PULSE 78; RESP 18
[2018-11-17] MEDS: INSULIN ASPART [NOVOLOG] 3 ML PEN SC SCH ×3 (07:20→17:25)
[2018-11-17] MEDS: ALBUTEROL/IPRATROPIUM (NEB) 3 ML AMP HHN SCH ×3 (08:02→20:18)
[2018-11-17] MEDS: GUAIFENESIN/DM (SR) TAB PO SCH ×2 (08:21→21:02)
[2018-11-17] MEDS: metFORMIN 500 MG TAB PO SCH ×2 (08:22→17:46)
[2018-11-17] MEDS: GABAPENTIN 300 MG CAP PO SCH ×2 (08:22→21:02)
[2018-11-17] MEDS: ESTRADIOL 1 MG TAB PO SCH (08:23)
[2018-11-17] MEDS: LOSARTAN 50 MG TAB PO SCH (08:23)
[2018-11-17] MEDS: L ACIDOPHIL/B LACTIS/B LONGUM CAPSULE PO SCH ×2 (08:23→21:02)
[2018-11-17] MEDS: FLUCONAZOLE 100 MG TAB PO SCH (08:23)
[2018-11-17] MEDS: SERTRALINE 100 MG TAB PO SCH (08:24)
[2018-11-17] MEDS: DOXYCYCLINE 100 MG TAB PO SCH ×2 (08:24→21:02)
[2018-11-17] MEDS: ENOXAPARIN 40 MG/0.4 ML SYG SC SCH (08:26)
--- NOTE | 2018-11-17 09:12 | PN ---
Date/Time of Note Date/Time of Note DATE: 11/17/18 TIME: 09:07 Assessment/Plan Lines/Catheters IV Catheter Type (from [facility]): Saline Lock [place] in Place (from [facility]): No Assessment/Plan Chief Complaint/Hosp Course left staph mrsa empyema continue drainage ct chest to see how much residual collection remains may need tpa vs decortication Subjective 24 Hr Interval Summary Constitutional: improved, BM Exam/Review of Systems Vital Signs Vitals Vital Signs Date Temp Pulse Resp B/P (MAP) Pulse Ox O2 O2 Flow FiO2 Time Delivery Rate 11/17/18 84 17 96 21 08:03 11/17/18 98.0 135/64 07:16 (87) 11/17/18 Room Air 01:43 Intake and Output 11/16/18 11/16/18 11/17/18 1515:00 23:00 07:00 IntakeIntake Total 50 ml 650 ml 770 ml OutputOutput Total 5 ml 0 ml BalanceBalance 50 ml 645 ml 770 ml Exam Constitutional: well developed Psych: no complaints Eyes: EOMI ENMT: nl lips & teeth Neck: supple Respiratory: other (40 cc then 5 cc output ) Results Free Text/Dictation cxr 11/15 improved left lower lobe collection Result Diagram: 11/17/18 0434 11/17/18 0443 ANDREW WILKES MD Nov 17, 2018 09:12
--- NOTE | 2018-11-17 09:35 | PN ---
Date/Time of Note Date/Time of Note DATE: 11/17/18 TIME: 09:31 Assessment/Plan VTE Prophylaxis Risk score (from Ns)>0 risk: 2 SCD applied (from Ns): Yes Pharmacological prophylaxis: LMWH Lines/Catheters IV Catheter Type (from [facility]): Saline Lock Urinary Cath still in place: No Assessment/Plan Hospital Course 1. Pneumonia with loculated effusion LLL, the fluid draining from the left lung is growing MRSA and is considered an empyema. CAT scan of the chest is pending. May need TPA and or decortication procedure. 2. AODM, sugar control has improved, will change insulin to ac tid 3. Rash prob sec to zosyn, abx modified by ID , rash is better 4. Mouth and tongue were sore, now better 5. Pericardial effusion 6. PT ordered Result Diagram: 11/17/18 0434 11/17/18 0443 Results 24hrs Laboratory Tests Test 11/16/18 13:01 11/16/18 17:40 11/16/18 20:53 11/17/18 04:34 Bedside Glucose 100 106 131 White Blood Count 8.2 Red Blood Count 3.31 L Hemoglobin 9.6 L Hematocrit 28.9 L Mean Corpuscular 87.3 Volume Mean Corpuscular 29.0 Hemoglobin Mean Corpuscular 33.2 Hemoglobin Concent Red Cell Distribution 13.8 Width Platelet Count 401 Mean Platelet Volume 10.2 Immature Granulocytes 0.600 H % Neutrophils % 72.4 Lymphocytes % 16.7 Monocytes % 6.4 Eosinophils % 3.8 Basophils % 0.1 Nucleated Red Blood 0.0 Cells % Immature Granulocytes 0.050 H # Neutrophils # 5.9 Lymphocytes # 1.4 Monocytes # 0.5 Eosinophils # 0.3 Basophils # 0.0 Nucleated Red Blood 0.0 Cells # Procalcitonin 0.09 Test 11/17/18 04:43 11/17/18 08:20 Sodium Level 139 Potassium Level 3.5 Chloride Level 104 Carbon Dioxide Level 26 Anion Gap 9 Blood Urea Nitrogen 9 Creatinine 0.51 Est Glomerular > 60 Filtrat Rate mL/min Glucose Level 99 Calcium Level 8.7 Iron Level 18 L Total Iron Binding 186 L Capacity Percent Iron 10 L Saturation Ferritin 690.0 H Total Bilirubin 0.8 Direct Bilirubin 0.00 Indirect Bilirubin 0.8 Aspartate Amino 24 Transf (AST/SGOT) Alanine 22 Aminotransferase (ALT /SGPT) Alkaline Phosphatase 74 Total Protein 6.8 Albumin 3.1 L Globulin 3.70 H Albumin/Globulin 0.83 Ratio Bedside Glucose 110 Subjective 24 Hr Interval Summary Free Text/Dictation Elvira is being seen today in medical follow-up. She is awake and alert. She says that she has a slight cough. She has a pigtail catheter in the left chest which is draining fluid. Constitutional: no complaints Respiratory: cough Cardiovascular: no complaints Gastrointestinal: no complaints Musculoskeletal: no complaints Neurologic: no complaints Exam/Review of Systems Exam Vitals Vital Signs Date Temp Pulse Resp B/P (MAP) Pulse Ox O2 O2 Flow FiO2 Time Delivery Rate 11/17/18 84 17 96 21 08:03 11/17/18 98.0 135/64 07:16 (87) 11/17/18 Room Air 01:43 Intake and Output 11/16/18 11/16/18 11/17/18 1414:59 22:59 06:59 IntakeIntake Total 50 ml 650 ml 770 ml OutputOutput Total 5 ml 0 ml BalanceBalance 50 ml 645 ml 770 ml Constitutional: alert, oriented, frail Respiratory: diminished breath sounds Cardiovascular: regular rate and rhythm Gastrointestinal: soft, non-tender Musculoskeletal: nl extremities to inspection Results Results 24hrs Laboratory Tests Test 11/16/18 13:01 11/16/18 17:40 11/16/18 20:53 11/17/18 04:34 Bedside Glucose 100 106 131 White Blood Count 8.2 Red Blood Count 3.31 L Hemoglobin 9.6 L Hematocrit 28.9 L Mean Corpuscular 87.3 Volume Mean Corpuscular 29.0 Hemoglobin Mean Corpuscular 33.2 Hemoglobin Concent Red Cell Distribution 13.8 Width Platelet Count 401 Mean Platelet Volume 10.2 Immature Granulocytes 0.600 H % Neutrophils % 72.4 Lymphocytes % 16.7 Monocytes % 6.4 Eosinophils % 3.8 Basophils % 0.1 Nucleated Red Blood 0.0 Cells % Immature Granulocytes 0.050 H # Neutrophils # 5.9 Lymphocytes # 1.4 Monocytes # 0.5 Eosinophils # 0.3 Basophils # 0.0 Nucleated Red Blood 0.0 Cells # Procalcitonin 0.09 Test 11/17/18 04:43 11/17/18 08:20 Sodium Level 139 Potassium Level 3.5 Chloride Level 104 Carbon Dioxide Level 26 Anion Gap 9 Blood Urea Nitrogen 9 Creatinine 0.51 Est Glomerular > 60 Filtrat Rate mL/min Glucose Level 99 Calcium Level 8.7 Iron Level 18 L Total Iron Binding 186 L Capacity Percent Iron 10 L Saturation Ferritin 690.0 H Total Bilirubin 0.8 Direct Bilirubin 0.00 Indirect Bilirubin 0.8 Aspartate Amino 24 Transf (AST/SGOT) Alanine 22 Aminotransferase (ALT /SGPT) Alkaline Phosphatase 74 Total Protein 6.8 Albumin 3.1 L Globulin 3.70 H Albumin/Globulin 0.83 Ratio Bedside Glucose 110 Medications Medication Current Medications IV Flush (NS 3 ml) 3 ml PER PROTOCOL IV Last administered on 11/14/18 20:06; Admin Dose 3 ML; Start 11/11/18 at 17:30 Ondansetron HCl (Zofran Inj) 4 mg Q6H PRN IV NAUSEA/VOMITING Last administered on 11/16/18 14:31; Admin Dose 4 MG; Start 11/11/18 at 17:30 Acetaminophen (Tylenol Tab) 650 mg Q6H PRN PO .PAIN 1-3 OR TEMP; Start 11/11/18 at 17:30 Acetaminophen/ Hydrocodone Bitart ([place] (5/325)) 1 tab Q6H PRN PO .MOD PAIN 4- 6 Last administered on 11/14/18 21:50; Admin Dose 1 TAB; Start 11/11/18 at 17:30 Zolpidem Tartrate (Ambien) 5 mg QHS PRN PO .INSOMNIA; Start 11/11/18 at 17:30 Pantoprazole (Protonix Tab) 40 mg DAILY@06 PO Last administered on 11/17/18 05:13; Admin Dose 40 MG; Start 11/12/18 at 06:00 Albuterol/ Ipratropium (Duoneb) 3 ml Q6HWA RESP THERAPY HHN Last administered on 11/17/18 08:02; Admin Dose 3 ML; Start 11/11/18 at 20:00 Guaifenesin/ Dextromethorphan (Mucinex Dm) 1 tab BID PO Last administered on 11/16/18 20:54; Admin Dose 1 TAB; Start 11/11/18 at 21:00 Estradiol (Estrace) 1 mg DAILY PO Last administered on 11/17/18 08:23; Admin Dose 1 MG; Start 11/12/18 at 09:00 Atorvastatin Calcium (Lipitor) 10 mg HS PO Last administered on 11/16/18 20:55; Admin Dose 10 MG; Start 11/11/18 at 21:00 Gabapentin (Neurontin) 300 mg BID PO Last administered on 11/16/18 20:55; Admin Dose 300 MG; Start 11/11/18 at 21:00 Metformin HCl (Glucophage) 500 mg BID WITH MEALS PO Last administered on 11/17/18 08:22; Admin Dose 500 MG; Start 11/11/18 at 18:05 Sertraline HCl (Zoloft) 100 mg DAILY PO Last administered on 11/17/18 08:24; Admin Dose 100 MG; Start 11/12/18 at 09:00 Losartan Potassium (Cozaar) 100 mg DAILY PO Last administered on 11/17/18 08:23; Admin Dose 100 MG; Start 11/11/18 at 17:30 Miscellaneous Information 1 ea NOTE XX ; Start 11/11/18 at 18:30 Glucose (Glutose) 15 gm Q15M PRN PO DECREASED GLUCOSE; Start 11/11/18 at 18:30 Glucose (Glutose) 22.5 gm Q15M PRN PO DECREASED GLUCOSE; Start 11/11/18 at 18:30 Dextrose (D50w Syringe) 25 ml Q15M PRN IV DECREASED GLUCOSE; Start 11/11/18 at 18:30 Dextrose (D50w Syringe) 50 ml Q15M PRN IV DECREASED GLUCOSE; Start 11/11/18 at 18:30 Glucagon (Glucagen) 1 mg Q15M PRN IM DECREASED GLUCOSE; Start 11/11/18 at 18:30 Glucose (Glutose) 15 gm Q15M PRN BUCCAL DECREASED GLUCOSE; Start 11/11/18 at 18:30 Diagnostic Test (Pha) (Accu-Chek) 1 ea 02 XX ; Start 11/13/18 at 02:00 Insulin Glargine (Lantus) 15 units DAILY@2000 SC Last administered on 11/16/18at 20:58; Admin Dose 15 UNITS; Start 11/12/18 at 20:00 Enoxaparin Sodium (Lovenox) 40 mg DAILY SC Last administered on 11/16/18at 09:28; Admin Dose 40 MG; Start 11/12/18 at 09:00 Lactobacillus Acidophilus (Florajen3 Capsule) 1 each BID PO Last administered on 11/17/18 08:23; Admin Dose 1 EACH; Start 11/12/18 at 09:00 Promethazine HCl/ Codeine (Phenergan/ Codeine) 5 ml Q6 PRN PO COUGH Last administered on 11/14/18 08:51; Admin Dose 5 ML; Start 11/12/18 at 17:30 Diphenhydramine HCl (Benadryl) 50 mg QID PRN PO ITCHING Last administered on 19:27; Admin Dose 50 MG; Start 11/13/18 at 07:00 Doxycycline Hyclate (Vibramycin) 100 mg BID PO Last administered on 11/17/18 08:24; Admin Dose 100 MG; Start 11/13/18 at 09:00 Meropenem/Sodium Chloride 50 ml @ 100 mls/hr Q8 IVPB Last administered on 11/17/18 05:13; Admin Dose 100 MLS/HR; Start 11/13/18 at 14:00 Insulin Aspart (Novolog Insulin Pen) NOVOLOG *MODERATE* ALGORITHM AC MEALS SC Last administered on 11/14/18 18:00; Admin Dose 2 UNIT; Start 11/13/18 at 09:00 Fluconazole (Diflucan) 100 mg DAILY PO Last administered on 11/17/18 08:23; Admin Dose 100 MG; Start 11/14/18 at 09:00 Rifampin (Rifampin) 600 mg DAILY@0600 PO Last administered on 11/17/18 05:16; Admin Dose 600 MG; Start 11/17/18 at 06:00 TRAE TAYLOR MD Nov 17, 2018 09:35
[2018-11-17 14:36] VITALS: BP 130/85; PULSE 83; RESP 18
--- NOTE | 2018-11-17 15:01 | CONS ---
Consult Date/Type/Reason Admit Date/Time Nov 11, 2018 at 16:26 Initial Consult Date 11/12/18 Type of Consult Pulmonary Date/Time of Note DATE: 11/17/18 TIME: 15:00 Subjective Decreased chest pain chest drain output noted. CT findings also noted. Objective Vital Signs Date Temp Pulse Resp B/P (MAP) Pulse Ox O2 O2 Flow FiO2 Time Delivery Rate 11/17/18 85 18 99 21 14:56 11/17/18 98.2 130/85 14:36 (100) 11/17/18 Room Air 01:43 Intake and Output 11/16/18 11/16/18 11/17/18 1515:00 23:00 07:00 IntakeIntake Total 50 ml 650 ml 770 ml OutputOutput Total 5 ml 0 ml BalanceBalance 50 ml 645 ml 770 ml Exam GENERAL: Well-nourished well-developed lady comfortable at rest no acute distress VITAL SIGNS: per chart NECK: Supple. No JVD or lymphadenopathy. CARDIAC EXAM: S1, S2. No added sounds or murmurs. CHEST: Diminished air entry left base. ABDOMEN: Soft, nontender. No guarding or rebound. EXTREMITIES: No cyanosis, clubbing or edema. NEUROLOGIC: Generalized weakness. No focal deficits. Vent Setting Fraction of Inspired Oxygen pe: 21 Results/Medications Result Diagram: 11/17/18 0434 11/17/18 0443 Results 24 hrs Laboratory Tests Test 11/16/18 17:40 11/16/18 20:53 11/17/18 04:34 11/17/18 04:43 Bedside Glucose 106 131 White Blood Count 8.2 Red Blood Count 3.31 L Hemoglobin 9.6 L Hematocrit 28.9 L Mean Corpuscular 87.3 Volume Mean Corpuscular 29.0 Hemoglobin Mean Corpuscular 33.2 Hemoglobin Concent Red Cell Distribution 13.8 Width Platelet Count 401 Mean Platelet Volume 10.2 Immature Granulocytes 0.600 H % Neutrophils % 72.4 Lymphocytes % 16.7 Monocytes % 6.4 Eosinophils % 3.8 Basophils % 0.1 Nucleated Red Blood 0.0 Cells % Immature Granulocytes 0.050 H # Neutrophils # 5.9 Lymphocytes # 1.4 Monocytes # 0.5 Eosinophils # 0.3 Basophils # 0.0 Nucleated Red Blood 0.0 Cells # Procalcitonin 0.09 Sodium Level 139 Potassium Level 3.5 Chloride Level 104 Carbon Dioxide Level 26 Anion Gap 9 Blood Urea Nitrogen 9 Creatinine 0.51 Est Glomerular Filtrat > 60 Rate mL/min Glucose Level 99 Calcium Level 8.7 Iron Level 18 L Total Iron Binding 186 L Capacity Percent Iron 10 L Saturation Ferritin 690.0 H Total Bilirubin 0.8 Direct Bilirubin 0.00 Indirect Bilirubin 0.8 Aspartate Amino 24 Transf (AST/SGOT) Alanine 22 Aminotransferase (ALT/ SGPT) Alkaline Phosphatase 74 Total Protein 6.8 Albumin 3.1 L Globulin 3.70 H Albumin/Globulin Ratio 0.83 Test 11/17/18 08:20 11/17/18 12:46 Bedside Glucose 110 113 Medications Current Medications IV Flush (NS 3 ml) 3 ml PER PROTOCOL IV Last administered on 11/14/18 20:06; Admin Dose 3 ML; Start 11/11/18 at 17:30 Ondansetron HCl (Zofran Inj) 4 mg Q6H PRN IV NAUSEA/VOMITING Last administered on 11/16/18 14:31; Admin Dose 4 MG; Start 11/11/18 at 17:30 Acetaminophen (Tylenol Tab) 650 mg Q6H PRN PO .PAIN 1-3 OR TEMP; Start 11/11/18 at 17:30 Acetaminophen/ Hydrocodone Bitart ([place] (5/325)) 1 tab Q6H PRN PO .MOD PAIN 4- 6 Last administered on 11/14/18at 21:50; Admin Dose 1 TAB; Start 11/11/18 at 17:30 Zolpidem Tartrate (Ambien) 5 mg QHS PRN PO .INSOMNIA; Start 11/11/18 at 17:30 Pantoprazole (Protonix Tab) 40 mg DAILY@06 PO Last administered on 11/17/18 05:13; Admin Dose 40 MG; Start 11/12/18 at 06:00 Albuterol/ Ipratropium (Duoneb) 3 ml Q6HWA RESP THERAPY HHN Last administered on 11/17/18 14:56; Admin Dose 3 ML; Start 11/11/18 at 20:00 Guaifenesin/ Dextromethorphan (Mucinex Dm) 1 tab BID PO Last administered on 11/16/18 20:54; Admin Dose 1 TAB; Start 11/11/18 at 21:00 Estradiol (Estrace) 1 mg DAILY PO Last administered on 11/17/18 08:23; Admin Dose 1 MG; Start 11/12/18 at 09:00 Atorvastatin Calcium (Lipitor) 10 mg HS PO Last administered on 11/16/18 20:55; Admin Dose 10 MG; Start 11/11/18 at 21:00 Gabapentin (Neurontin) 300 mg BID PO Last administered on 11/16/18 20:55; Admin Dose 300 MG; Start 11/11/18 at 21:00 Metformin HCl (Glucophage) 500 mg BID WITH MEALS PO Last administered on 11/17/18 08:22; Admin Dose 500 MG; Start 11/11/18 at 18:05 Sertraline HCl (Zoloft) 100 mg DAILY PO Last administered on 11/17/18 08:24; Admin Dose 100 MG; Start 11/12/18 at 09:00 Losartan Potassium (Cozaar) 100 mg DAILY PO Last administered on 11/17/18 08:23; Admin Dose 100 MG; Start 11/11/18 at 17:30 Miscellaneous Information 1 ea NOTE XX ; Start 11/11/18 at 18:30 Glucose (Glutose) 15 gm Q15M PRN PO DECREASED GLUCOSE; Start 11/11/18 at 18:30 Glucose (Glutose) 22.5 gm Q15M PRN PO DECREASED GLUCOSE; Start 11/11/18 at 18:30 Dextrose (D50w Syringe) 25 ml Q15M PRN IV DECREASED GLUCOSE; Start 11/11/18 at 18:30 Dextrose (D50w Syringe) 50 ml Q15M PRN IV DECREASED GLUCOSE; Start 11/11/18 at 18:30 Glucagon (Glucagen) 1 mg Q15M PRN IM DECREASED GLUCOSE; Start 11/11/18 at 18:30 Glucose (Glutose) 15 gm Q15M PRN BUCCAL DECREASED GLUCOSE; Start 11/11/18 at 18:30 Diagnostic Test (Pha) (Accu-Chek) 1 ea 02 XX ; Start 11/13/18 at 02:00 Insulin Glargine (Lantus) 15 units DAILY@2000 SC Last administered on 11/16/18 20:58; Admin Dose 15 UNITS; Start 11/12/18 at 20:00 Enoxaparin Sodium (Lovenox) 40 mg DAILY SC Last administered on 6/30/19at 09:28; Admin Dose 40 MG; Start 11/12/18 at 09:00 Lactobacillus Acidophilus (Florajen3 Capsule) 1 each BID PO Last administered on 11/17/18 08:23; Admin Dose 1 EACH; Start 11/12/18 at 09:00 Promethazine HCl/ Codeine (Phenergan/ Codeine) 5 ml Q6 PRN PO COUGH Last administered on 11/14/18 08:51; Admin Dose 5 ML; Start 11/12/18 at 17:30 Diphenhydramine HCl (Benadryl) 50 mg QID PRN PO ITCHING Last administered on 11/13/18 19:27; Admin Dose 50 MG; Start 11/13/18 at 07:00 Doxycycline Hyclate (Vibramycin) 100 mg BID PO Last administered on 11/17/18at 08:24; Admin Dose 100 MG; Start 11/13/18 at 09:00 Insulin Aspart (Novolog Insulin Pen) NOVOLOG *MODERATE* ALGORITHM AC MEALS SC Last administered on 11/14/18at 18:00; Admin Dose 2 UNIT; Start 11/13/18 at 09:00 Rifampin (Rifampin) 600 mg DAILY@0600 PO Last administered on 11/17/18at 05:16; Admin Dose 600 MG; Start 11/17/18 at 06:00 Assessment/Plan Hospital Course (Demo Recall) IMP: 1. Empyema Thoracis--s/p small-bore tube placement. Repeat chest CT demonstrates small pleural effusion with subsequent atelectasis 2. Drug rash 3. Anemia RECS: 1. Continue CT to 20 cm H20 suction 2. May use tPA and DNAase as needed to improve drainage though I suspect minimal residual collection 3. Abx per ID 4. We will discuss with thoracic surgery. LEXIS PATRICIA MD, [facility] Nov 17, 2018 15:01
[2018-11-17] MEDS ORDERED: LOPERAMIDE 2 MG CAP PO PRN (18:30)
[2018-11-17 19:25] VITALS: BP 126/61; PULSE 91; RESP 18
[2018-11-17] MEDS: ATORVASTATIN 10 MG TAB PO SCH (21:02)
[2018-11-17] MEDS: INSULIN GLARGINE [LANTus] (100 UNITS/ML) SYG SC SCH (21:05)
[2018-11-18] MEDS: ACCU-CHEK XX SCH (02:00)
[2018-11-18 02:05] VITALS: BP 141/66; PULSE 81; RESP 18
[2018-11-18] MEDS: PANTOPRAZOLE (EC) 40 MG TAB PO SCH (05:27)
[2018-11-18] MEDS: RIFAMPIN 300 MG CAP PO SCH (05:27)
[2018-11-18 07:30] VITALS: BP 123/59; RESP 18
[2018-11-18] MEDS: ALBUTEROL/IPRATROPIUM (NEB) 3 ML AMP HHN SCH ×2 (08:00→14:00)
--- NOTE | 2018-11-18 08:08 | PN ---
Date/Time of Note Date/Time of Note DATE: 11/18/18 TIME: 08:03 Assessment/Plan Lines/Catheters IV Catheter Type (from Nrsg): Saline Lock [place] in Place (from Nrsg): No Assessment/Plan Chief Complaint/Hosp Course left staph mrsa empyema d/c pigtail vs tpa/dornase will discuss with pulmonary d/w romoff Subjective 24 Hr Interval Summary Feeding: baseline diet Pain Control: well controlled Exam/Review of Systems Vital Signs Vitals Vital Signs Date Temp Pulse Resp B/P (MAP) Pulse Ox O2 O2 Flow FiO2 Time Delivery Rate 11/18/18 98.3 18 123/59 96 07:30 (80) 11/18/18 81 02:05 11/17/18 21 20:19 11/17/18 Room Air 01:43 Intake and Output 11/17/18 11/17/18 11/18/18 1515:00 23:00 07:00 OutputOutput Total 5 ml BalanceBalance -5 ml Exam Constitutional: oriented Psych: nl mood/affect ENMT: nl lips & teeth Neck: supple Respiratory: crackles/rales, respirations, other ([address] chest minimal effusion parenchymal pneumonia left lower lobe) Cardiovascular: regular rate and rhythm Results Result Diagram: 11/17/18 0434 11/17/18 0443 ANDREW WILKES MD Nov 18, 2018 08:08
[2018-11-18] MEDS ORDERED: morphine 2 MG INJ ONE (08:17)
[2018-11-18] MEDS ORDERED: morphine 2 MG INJ IV STA (08:20)
--- NOTE | 2018-11-18 08:24 | PN ---
Date/Time of Note Date/Time of Note DATE: 11/18/18 TIME: 08:20 Assessment/Plan VTE Prophylaxis Risk score (from Nsg)>0 risk: 4 SCD applied (from Nsg): Yes Pharmacological prophylaxis: LMWH Lines/Catheters IV Catheter Type (from Nrsg): Saline Lock Urinary Cath still in place: No Assessment/Plan Assessment/Plan 1. Pneumonia left lung with loculated effusion, pul, chest surg and ID to decide of catheter should be removed based on less drainage and CT scan vs other. 2. Abx per ID 3. Mouth/tongue soreness improved with rx yeast 4. DM control is better, will reduce ac insulin and lantus, inc metformin once GI tract back to baseline 5. Iron def noted, will give iv iron 6. Need to mobilize, will be sure seen by PT Result Diagram: 11/17/18 0434 11/17/18 0443 Results 24hrs Laboratory Tests Test 11/17/18 12:46 11/17/18 17:45 11/17/18 20:58 Bedside Glucose 113 124 94 Subjective 24 Hr Interval Summary ENT: other (she now has no tongue pain or diff swallowing) Respiratory: other (she has no pleuritic chest pain and is not sob) Cardiovascular: no complaints Gastrointestinal: other (still some liquid stool) Genitourinary: no complaints Musculoskeletal: no complaints Skin: no complaints Exam/Review of Systems Exam Vitals Vital Signs Date Temp Pulse Resp B/P (MAP) Pulse Ox O2 O2 Flow FiO2 Time Delivery Rate 11/18/18 98.3 18 123/59 96 07:30 (80) 11/18/18 81 02:05 11/17/18 21 20:19 11/17/18 Room Air 01:43 Intake and Output 11/17/18 11/17/18 11/18/18 1515:00 23:00 07:00 OutputOutput Total 5 ml BalanceBalance -5 ml Neck: No jvd Respiratory: clear to auscultation (and has dec bs left base) Cardiovascular: regular rate and rhythm Gastrointestinal: soft Extremities: No edema Results Results 24hrs Laboratory Tests Test 11/17/18 12:46 11/17/18 17:45 11/17/18 20:58 Bedside Glucose 113 124 94 Medications Medication Current Medications IV Flush (NS 3 ml) 3 ml PER PROTOCOL IV Last administered on 6/28/19at 20:06; Admin Dose 3 ML; Start 11/11/18 at 17:30 Ondansetron HCl (Zofran Inj) 4 mg Q6H PRN IV NAUSEA/VOMITING Last administered on 11/16/18 14:31; Admin Dose 4 MG; Start 11/11/18 at 17:30 Acetaminophen (Tylenol Tab) 650 mg Q6H PRN PO .PAIN 1-3 OR TEMP; Start 11/11/18 at 17:30 Acetaminophen/ Hydrocodone Bitart ([place] (5/325)) 1 tab Q6H PRN PO .MOD PAIN 4- 6 Last administered on 11/14/18 21:50; Admin Dose 1 TAB; Start 11/11/18 at 17:30 Zolpidem Tartrate (Ambien) 5 mg QHS PRN PO .INSOMNIA; Start 11/11/18 at 17:30 Pantoprazole (Protonix Tab) 40 mg DAILY@06 PO Last administered on 11/18/18 05:27; Admin Dose 40 MG; Start 11/12/18 at 06:00 Albuterol/ Ipratropium (Duoneb) 3 ml Q6HWA RESP THERAPY HHN Last administered on 11/17/18 20:18; Admin Dose 3 ML; Start 11/11/18 at 20:00 Guaifenesin/ Dextromethorphan (Mucinex Dm) 1 tab BID PO Last administered on 11/17/18 21:02; Admin Dose 1 TAB; Start 11/11/18 at 21:00 Estradiol (Estrace) 1 mg DAILY PO Last administered on 11/17/18 08:23; Admin Dose 1 MG; Start 11/12/18 at 09:00 Atorvastatin Calcium (Lipitor) 10 mg HS PO Last administered on 11/17/18 21:02; Admin Dose 10 MG; Start 11/11/18 at 21:00 Gabapentin (Neurontin) 300 mg BID PO Last administered on 11/17/18 21:02; Admin Dose 300 MG; Start 11/11/18 at 21:00 Metformin HCl (Glucophage) 500 mg BID WITH MEALS PO Last administered on 11/17/18 17:46; Admin Dose 500 MG; Start 11/11/18 at 18:05 Sertraline HCl (Zoloft) 100 mg DAILY PO Last administered on 11/17/18 08:24; Admin Dose 100 MG; Start 11/12/18 at 09:00 Losartan Potassium (Cozaar) 100 mg DAILY PO Last administered on 11/17/18 08:23; Admin Dose 100 MG; Start 11/11/18 at 17:30 Miscellaneous Information 1 ea NOTE XX ; Start 11/11/18 at 18:30 Glucose (Glutose) 15 gm Q15M PRN PO DECREASED GLUCOSE; Start 11/11/18 at 18:30 Glucose (Glutose) 22.5 gm Q15M PRN PO DECREASED GLUCOSE; Start 11/11/18 at 18:30 Dextrose (D50w Syringe) 25 ml Q15M PRN IV DECREASED GLUCOSE; Start 11/11/18 at 18:30 Dextrose (D50w Syringe) 50 ml Q15M PRN IV DECREASED GLUCOSE; Start 11/11/18 at 18:30 Glucagon (Glucagen) 1 mg Q15M PRN IM DECREASED GLUCOSE; Start 11/11/18 at 18:30 Glucose (Glutose) 15 gm Q15M PRN BUCCAL DECREASED GLUCOSE; Start 11/11/18 at 18:30 Diagnostic Test (Pha) (Accu-Chek) 1 ea 02 XX ; Start 11/13/18 at 02:00 Enoxaparin Sodium (Lovenox) 40 mg DAILY SC Last administered on 11/16/18 09:28; Admin Dose 40 MG; Start 11/12/18 at 09:00 Lactobacillus Acidophilus (Florajen3 Capsule) 1 each BID PO Last administered on 11/17/18 21:02; Admin Dose 1 EACH; Start 11/12/18 at 09:00 Promethazine HCl/ Codeine (Phenergan/ Codeine) 5 ml Q6 PRN PO COUGH Last administered on 11/14/18at 08:51; Admin Dose 5 ML; Start 11/12/18 at 17:30 Diphenhydramine HCl (Benadryl) 50 mg QID PRN PO ITCHING Last administered on 11/13/18 19:27; Admin Dose 50 MG; Start 11/13/18 at 07:00 Doxycycline Hyclate (Vibramycin) 100 mg BID PO Last administered on 11/17/18 21:02; Admin Dose 100 MG; Start 11/13/18 at 09:00 Rifampin (Rifampin) 600 mg DAILY@0600 PO Last administered on 11/18/18at 05:27; Admin Dose 600 MG; Start 11/17/18 at 06:00 Loperamide HCl (Imodium Cap) 2 mg QID PRN PO DIARRHEA; Start 11/17/18 at 18:30 Insulin Glargine (Lantus) 10 units DAILY@2000 SC ; Start 11/18/18 at 20:00; Status UNV Ferric Sodium Gluconate Complex 125 mg/Sodium Chloride 110 ml @ 110 mls/hr DAILY@1300 IVPB ; Start 11/18/18 at 13:00; Stop 11/22/18 at 13:59; Status UNV Miscellaneous Information (* Miscellaneous Pharmacy Order) Discontinue current oral sulfonylur... ONCE ONCE XX ; Start 11/18/18 at 08:30; Stop 11/18/18 at 08:31; Status UNV Diagnostic Test (Pha) (Accu-Chek) 1 XX ; Start 11/19/18 at 02:00; Status UNV Miscellaneous Information (* Miscellaneous Pharmacy Order) HYPOGLYCEMIA PROTOCOL w... ONCE ONCE XX ; Start 11/18/18 at 08:30; Stop 11/18/18 at 08:31; Status UNV Insulin Aspart (Novolog Insulin Pen) NOVOLOG *MILD* ALGORITHM AC MEALS SC ; Start 11/18/18 at 11:10; Status UNV Miscellaneous Information (* Miscellaneous Pharmacy Order) Discontinue all previ... ONCE ONCE XX ; Start 11/18/18 at 08:30; Stop 11/18/18 at 08:31; Status UNV YADI MACHADO MD Nov 18, 2018 08:24
[2018-11-18] MEDS: ENOXAPARIN 40 MG/0.4 ML SYG SC SCH (08:30)
[2018-11-18] MEDS: DOXYCYCLINE 100 MG TAB PO SCH (08:31)
[2018-11-18] MEDS: SERTRALINE 100 MG TAB PO SCH (08:31)
[2018-11-18] MEDS: ESTRADIOL 1 MG TAB PO SCH (08:31)
[2018-11-18] MEDS: L ACIDOPHIL/B LACTIS/B LONGUM CAPSULE PO SCH (08:33)
[2018-11-18] MEDS: LOSARTAN 50 MG TAB PO SCH (08:33)
[2018-11-18] MEDS: metFORMIN 500 MG TAB PO SCH (08:35)
[2018-11-18] MEDS: GUAIFENESIN/DM (SR) TAB PO SCH (09:00)
[2018-11-18] MEDS: GABAPENTIN 300 MG CAP PO SCH (09:00)
--- NOTE | 2018-11-18 09:53 | CONS ---
Assessment/Plan Assessment/Plan Hospital Course (Demo Recall) 1) pneumonia with complex L pleural effusion start vanco/zosyn pt will need thorancentesis and possible VATS with decortication check procalcitonin sputum cx if possible nasal swab for MRSA 11/13 - CT shows large amount of atelectasis but also loculated pleural effusion pt likely to need VATS with bronchoscopy due to allergic reaction will change antibiotics to doxy/merrem 11/14 - pt doing ok on doxy/merrem pt to get pigtail cath with probable tPA infusion into it I have placed orders for pleural fluid analysis follow up on repeat CXR to see if bronch may be necessary sputum cx has yeast 11/15 - WBC in pleural fluid is moderately elevated only but mostly PMN's and low glucose pleural cx is NGTD continue with merrem/doxy at present to get CXR this a.m. 11/16 - MRSA was in pleural fluid, add rifampin repeat CBC, procalcitonin in a.m. and if ok will d/c merrem then 11/17 - WBC is ok and if procalcitonin remains neg to d/c merrem and continue with doxy/rif 11/18 - CT shows improved L pleural effusion despite what the CT report says pigtail was removed continue with doxy/rif thru 11/26, merrem was stopped yesterday 2) SLE not currently active only on neurontin 3) DM 4) allergic drug reaction pt states she never had IV antibiotics before but possible penicillin type drug in past since this allergic reaction happened so quickly it suggests she may have seen the class of drug before which make me suspect zosyn is the cause d/c vanco/zosyn increase benadryl to 50mg QID PRN start doxy/merrem likely the rash will progress over the next several days 11/14 - rash is actually better continue with doxy/merrem 5) probable thrush start diflucan 11/15 - thrush is better but still has tongue tip soreness 11/16 - no white patches seen on tongue 11/17 - resolved if merrem is stopped will d/c diflucan 11/18 -resolved, stopped diflucan 6) diarrhea 11/17 - continue with probiotic, stool not smelly, hopefully merrem will be stopped and this should help continue with probiotic 11/18 - stools watery but not frequent and no cramping Consultation Date/Type/Reason Admit Date/Time Nov 11, 2018 at 16:26 Initial Consult Date 11/12/18 Type of Consult ID Date/Time of Note DATE: 11/18/18 TIME: 09:50 24 HR Interval Summary Free Text/Dictation pt had pigtail cath removed pain to site is much improved no N, V has watery stool x1 overnight has cough mostly dry, otherwise clear phlegm Exam/Review of Systems Exam Vitals Vital Signs Date Temp Pulse Resp B/P (MAP) Pulse Ox O2 O2 Flow FiO2 Time Delivery Rate 11/18/18 98.3 18 123/59 96 07:30 (80) 11/18/18 81 02:05 11/17/18 21 20:19 11/17/18 Room Air 01:43 Intake and Output 11/17/18 11/17/18 11/18/18 1515:00 23:00 07:00 OutputOutput Total 5 ml BalanceBalance -5 ml Constitutional: alert, oriented Eyes: nl sclera ENMT: mucosa pink and moist Respiratory: other (decreased BS at L base with some crackles) Cardiovascular: regular rate and rhythm Gastrointestinal: soft, non-tender Results Result Diagram: 11/17/18 0434 11/17/18 0443 Results 24hrs Laboratory Tests Test 11/17/18 12:46 11/17/18 17:45 11/17/18 20:58 Bedside Glucose 113 124 94 Medications Medication Current Medications IV Flush (NS 3 ml) 3 ml PER PROTOCOL IV Last administered on 11/14/18at 20:06; Admin Dose 3 ML; Start 11/11/18 at 17:30 Ondansetron HCl (Zofran Inj) 4 mg Q6H PRN IV NAUSEA/VOMITING Last administered on 11/16/18at 14:31; Admin Dose 4 MG; Start 11/11/18 at 17:30 Acetaminophen (Tylenol Tab) 650 mg Q6H PRN PO .PAIN 1-3 OR TEMP; Start 11/11/18 at 17:30 Acetaminophen/ Hydrocodone Bitart ([place] (5/325)) 1 tab Q6H PRN PO .MOD PAIN 4- 6 Last administered on 11/14/18at 21:50; Admin Dose 1 TAB; Start 11/11/18 at 17:30 Zolpidem Tartrate (Ambien) 5 mg QHS PRN PO .INSOMNIA; Start 11/11/18 at 17:30 Pantoprazole (Protonix Tab) 40 mg DAILY@06 PO Last administered on 11/18/18 05:27; Admin Dose 40 MG; Start 11/12/18 at 06:00 Albuterol/ Ipratropium (Duoneb) 3 ml Q6HWA RESP THERAPY HHN Last administered on 11/17/18 20:18; Admin Dose 3 ML; Start 11/11/18 at 20:00 Guaifenesin/ Dextromethorphan (Mucinex Dm) 1 tab BID PO Last administered on 11/17/18 21:02; Admin Dose 1 TAB; Start 11/11/18 at 21:00 Estradiol (Estrace) 1 mg DAILY PO Last administered on 11/18/18 08:31; Admin Dose 1 MG; Start 11/12/18 at 09:00 Atorvastatin Calcium (Lipitor) 10 mg HS PO Last administered on 11/17/18 21:02; Admin Dose 10 MG; Start 11/11/18 at 21:00 Gabapentin (Neurontin) 300 mg BID PO Last administered on 11/17/18 21:02; Admin Dose 300 MG; Start 11/11/18 at 21:00 Metformin HCl (Glucophage) 500 mg BID WITH MEALS PO Last administered on 11/18/18 08:35; Admin Dose 500 MG; Start 11/11/18 at 18:05 Sertraline HCl (Zoloft) 100 mg DAILY PO Last administered on 11/18/18 08:31; Admin Dose 100 MG; Start 11/12/18 at 09:00 Losartan Potassium (Cozaar) 100 mg DAILY PO Last administered on 11/18/18 08:33; Admin Dose 100 MG; Start 11/11/18 at 17:30 Miscellaneous Information 1 ea NOTE XX ; Start 11/11/18 at 18:30 Glucose (Glutose) 15 gm Q15M PRN PO DECREASED GLUCOSE; Start 11/11/18 at 18:30 Glucose (Glutose) 22.5 gm Q15M PRN PO DECREASED GLUCOSE; Start 11/11/18 at 18: 30 Dextrose (D50w Syringe) 25 ml Q15M PRN IV DECREASED GLUCOSE; Start 11/11/18 at 18:30 Dextrose (D50w Syringe) 50 ml Q15M PRN IV DECREASED GLUCOSE; Start 11/11/18 at 18:30 Glucagon (Glucagen) 1 mg Q15M PRN IM DECREASED GLUCOSE; Start 11/11/18 at 18:30 Glucose (Glutose) 15 gm Q15M PRN BUCCAL DECREASED GLUCOSE; Start 11/11/18 at 18:30 Enoxaparin Sodium (Lovenox) 40 mg DAILY SC Last administered on 11/16/18at 09:28; Admin Dose 40 MG; Start 11/12/18 at 09:00 Lactobacillus Acidophilus (Florajen3 Capsule) 1 each BID PO Last administered on 11/18/18at 08:33; Admin Dose 1 EACH; Start 11/12/18 at 09:00 Promethazine HCl/ Codeine (Phenergan/ Codeine) 5 ml Q6 PRN PO COUGH Last administered on 11/14/18at 08:51; Admin Dose 5 ML; Start 11/12/18 at 17:30 Diphenhydramine HCl (Benadryl) 50 mg QID PRN PO ITCHING Last administered on 11/13/18at 19:27; Admin Dose 50 MG; Start 11/13/18 at 07:00 Doxycycline Hyclate (Vibramycin) 100 mg BID PO Last administered on 11/18/18at 08:31; Admin Dose 100 MG; Start 11/13/18 at 09:00 Rifampin (Rifampin) 600 mg DAILY@0600 PO Last administered on 11/18/18at 05:27; Admin Dose 600 MG; Start 11/17/18 at 06:00 Loperamide HCl (Imodium Cap) 2 mg QID PRN PO DIARRHEA; Start 11/17/18 at 18:30 Insulin Glargine (Lantus) 10 units DAILY@2000 SC ; Start 11/18/18 at 20:00 Ferric Sodium Gluconate Complex 125 mg/Sodium Chloride 110 ml @ 110 mls/hr DAILY@1300 IVPB ; Start 11/18/18 at 13:00; Stop 11/22/18 at 13:59 Diagnostic Test (Pha) (Accu-Chek) 1 ea 02 XX ; Start 11/19/18 at 02:00 Insulin Aspart (Novolog Insulin Pen) NOVOLOG *MILD* ALGORITHM AC MEALS SC ; Start 11/18/18 at 11:10 THONY MCDUFFIE MD 2, 2019 09:53
[2018-11-18] MEDS: ONDANSETRON 4 MG INJ IV PRN (10:40)
[2018-11-18] MEDS ORDERED: INSULIN ASPART [NOVOLOG] 3 ML PEN SC SCH (11:10)
[2018-11-18] MEDS ORDERED: SOD FERRIC GLUC COMPLX 125 MG in SOD CHLORIDE 0.9% 100 ML IVPB SCH (13:00)
[2018-11-18] MEDS ORDERED: RIF120L PO (13:03)
[2018-11-18] MEDS ORDERED: ATOR10TA65 PO (13:03)
[2018-11-18] MEDS ORDERED: DOXY100T2 PO (13:03)
[2018-11-18] MEDS ORDERED: INSULIN GLARGINE [LANTus] (100 UNITS/ML) SYG SC SCH (20:00)
[2018-11-19] MEDS ORDERED: ACCU-CHEK XX SCH (02:00)
--- NOTE | 2018-11-25 00:20 | DS ---
DATE OF ADMISSION: 11/11/2018 DATE OF DISCHARGE: 11/18/2018 HOSPITAL COURSE: This is a 63-year-old female admitted with a persistent left lower lobe infiltrate and accompanying left pleural effusion. This 63-year-old female was admitted after initially being evaluated at [facility] ER on when she presented with 2-day history of cough and chest congestion. Unbeknownst to me is th at her CAT scan revealed a left lower lobe pulmonary infiltrate and a questionable endobronchial lesi on that was thought present. She initially received IV Rocephin, followed by a Medrol Dosepak and Zi thromax on discharge. She was reevaluated by me 1 day prior to admission when she had a temperature of 99.4, was moderately short of breath, had intermittent wheezing and had clearly evidence of pleuri tic chest and clearly was not improving. Because of the latter, I thought hospitalization warranted. She had no pathologic GI or symptoms. PERTINENT PHYSICAL EXAMINATION: VITAL SIGNS: BP 122/76, pulse was 90, respirations were 18, temperature 99.1. NECK: Unrevealing. LUNGS: Reveal decreased breath sounds at the left base without rales or wheezes. Right base had a f ew rhonchi. ABDOMEN: Unrevealing. EXTREMITIES: No edema. LABORATORY AND DIAGNOSTIC STUDIES: On admission, white count of 17,000, hematocrit 37.8, sed rate wa s 80. On 11/17/2018, hematocrit 28.6, white count 8200, platelet count 401,000. Chemistries: On ad mission, electrolytes were normal, creatinine 0.56. Sugar 318. AST and ALT was 27 and 46. C-reacti ve protein 15.9, albumin 3.6, globulin is 4.1. Mag and phos were normal. Hemoglobin A1c on 11/13/19 19 was 8.3. Liver tests normalize on 11/13/2018 with AST and ALT 24 and 39 respectively. TSH was no rmal. Procalcitonin was 0.13 (elevated). Procalcitonin was 0.11 on 11/14/2018 and 0.09 on 9. Iron saturation was 10%. Ferritin was 690. Protime was 15.5, PTT 29. Urinalysis: Microalbumin to creatinine ratio was 14. There were 18 white cells and 8 red cells. A pleural fluid analysis wa s compatible with an exudate. Amylase was normal. Fluid total protein 5.2, glucose less than 20. F luid pH 6.7. White cells 8219. BERNARD was positive and a titer of 1:640 speckled pattern. Anti-DNA wa s less than 95. Coccidioides complement fixation was negative. IMAGING STUDIES: Ultrasound of the chest on admission revealed a moderate left pleural effusion, whi ch was thought to be partially loculated, trace pleural fluid involving the right lung. CT of the ch est, moderate-sized left pleural effusion, compressive atelectasis of the left lung. No mass or cavi ty was appreciated. Repeat CT of the chest on 11/17/2018 revealed stable left lower lobe, moderate s ized loculated pleural effusion and consolidation. Blood cultures revealed no growth. Respiratory c ulture revealed normal rylan and Paz albicans. Methicillin-resistant Staphylococcus aureus was n oted from the pleural culture. HOSPITAL COURSE: The patient was seen by chest surgery, pulmonary and infectious disease by Dr. Muniz who guided antimicrobial therapy. It was felt that she had improved significantly on IV antibiotics and no surgical intervention was thought needed. At the time of discharge, she did not require oxyg en. Her pleuritic chest discomfort had improved as did her sense of well-being and appetite. She wa s counseled with respect to diabetic diet with nutritional assessment and consultation. DISCHARGE DIAGNOSES: 1. Extensive left lower lobe pneumonitis and related pleural effusion, markedly improved. 2. Diabetes, control has not been optimal as an outpatient. Hopefully, it will improve following [facility] hospitalization. MEDICATIONS: To be taken after discharge include: 1. Atorvastatin 10 mg per day. 2. Doxycycline 100 mg b.i.d. x10 days. 3. Rifampin 600 mg each day for 10 days. 4. Tylenol p.r.n. 5. Nexium 20 mg per day. 6. Estradiol 1 mg per day. 7. Glyburide 1 tablet per day, but not to be taken for sugars in the morning or less than 100. 8. Losartan HCT 100/12.5 per day. 9. Metformin 500 b.i.d. 10. Sertraline 100 mg per day. 11. Levothyroxine 25 mcg per day. DISCHARGE INSTRUCTIONS: Diabetic diet. To be seen by me in 1 week. Dictated By: YADI RUTLEDGE/WARD Conf#: [id number] [facility]#: [id number]
== END 2018-11-18 14:33 | disposition home or self-care (01) | DRG 194 ==
LOC: OBSVTOIN 16:26 → PP2 16:26 → INTOOBSV 16:26 → MS1 11-12 18:41
PROVIDERS: ADMIT Internal Medicine; ATTEND Internal Medicine
PROC: 0B9P30Z Drainage of Left Pleura with Drainage Device, Percutaneous Approach (ICD-10-PCS; principal; 2018-11-14)
DX: J18.9 Pneumonia, unspecified organism (principal); J90 Pleural effusion, not elsewhere classified; M32.9 Systemic lupus erythematosus, unspecified; E11.65 Type 2 diabetes mellitus with hyperglycemia; J45.909 Unspecified asthma, uncomplicated; M79.7 Fibromyalgia; E06.3 Autoimmune thyroiditis; E78.5 Hyperlipidemia, unspecified; I10 Essential (primary) hypertension; D72.829 Elevated white blood cell count, unspecified; D50.9 Iron deficiency anemia, unspecified; Z90.49 Acquired absence of other specified parts of digestive tract; Z90.710 Acquired absence of both cervix and uterus
CPT/HCPCS: 71045; 71046; 71250; 76604; 77012; 80048; 80053; 80202; 81001; 82043; 82150; 82728; 82945; 82962; 83036; 83540; 83735; 83986; 84100; 84145; 84157; 84436; 84443; 84479; 85025; 85610; 85651; 85730; 86038; 86140; 86226; 86635; 87070; 87086; 87102; 87116; 89051; 93005; 93306; 94640; 94664; 97161; C1729; J1650; J1815; J2185; J2270; J2405; J2543; J2916; J2997; J3010; J3370; J7030; J7042